=== PATIENT | male | born 1960 | race Caucasian/White ===

== ENCOUNTER 2020-08-01 06:00 | Outpatient (RCR) | payer MEDICARE, MEDICAID, SELFPAY | END 2020-08-29 23:59 | disposition home or self-care (01) | LOC: SOT 06:00 | PROVIDERS: PCP Internal Medicine; Visit Provider Internal Medicine | DX: G80.9 Cerebral palsy, unspecified (principal) | CPT/HCPCS: 97167; 97530 ==

== ENCOUNTER 2021-03-21 11:34 | Inpatient (IN) | payer MEDICARE, MEDICAID, SELFPAY ==
[2021-03-21] VITALS (12 sets, daily range): BP systolic 125–175; BP diastolic 77–93; PULSE 100–122; RESP 19–35; TEMP 37.7–38.3; O2SAT 89–95
--- NOTE | 2021-03-21 11:52 | XR_ITS ---
WS: [id number] Portable AP upright chest, 03/21/2021 Clinical Data: covid +, sob Comparison: Portable chest, 11/16/2018. Findings: No nodules, masses or effusions are seen. The heart is normal. The pulmonary vascularity is not increased. No pneumonia or pneumothorax is seen. The patient has a poor inspiratory effort. Dannielle tor leads are on the chest wall. XR/XR chest 1V portable [id number] Impression: Negative chest.
--- NOTE | 2021-03-21 11:57 | ED_ITS ---
HPI - COVID General: Chief Complaint: COVID symptoms Stated Complaint: covid positive Time Seen by Provider: 03/21/21 11:34 Source: patient, family, EMS and RN notes reviewed Mode of arrival: EMS Limitations: other (cerebral palsy) Triage information: Exposure to COVID + person last 14 days History of Present Illness: HPI Narrative: The patient is a 61-year-old male with cerebral palsy and his caregiver is his mother who usually takes care of him. Both the patient and the mother have tested positive for Covid and the patient is actually scheduled to receive monoclonal antibody in 2 days. I do not have his exact test states all days of symptom onset however since he is scheduled to receive the monoclonal antibody in 2 days I am guessing he is within about a week of symptom onset. Mother is unable to care for him any longer as she is very weak and he was sent to the emergency department to be evaluated on arrival he was hypoxic with oxygen saturation 88 to 89% on room air. He also appears to be slightly tachypneic. He is able to answer yes or no questions only. MD complaint: known COVID positive Prior covid testing: yes, results known COVID 19 common symptoms: positive fever(s) and dyspnea COVID 19 other sytmptoms: positive requiring oxygen Treatment prior to arrival: none COVID Results: No Data to Display Review of Systems General: Reports: ROS unobtainable due to mental status Const: Reports: fever(s) Resp: Reports: dyspnea Physical Exam Const: COMMON NORMALS: no acute distress, average body habitus, patient oriented x3, no limitations, healthy appearing, alert and well nourished HENMT: COMMON NORMALS: normocephalic, atraumatic and moist oral mucous membranes HEAD & SCALP: normocephalic and atraumatic Neck/C-Spine: COMMON NORMALS: no meningeal signs and no JVD Resp: COMMON NORMALS: normal respiratory effort, No retractions, No use of accessory muscles, clear to auscultation bilaterally and percussion normal EFFORT & INSPECTION: Yes tachypneic AUSCULTATION: clear to auscultation bilaterally PERCUSSION: percussion normal Cardio: COMMON NORMALS: no JVD, regular rate, regular rhythm, S1 normal heart sound present, S2 normal heart sound present, No gallops present (Cardio), No clicks present (Cardio), No murmurs present (Cardio), No rub (Cardio) and Peripheral pulses 2+ throughout RATE: regular rate RHYTHM: regular rhythm HEART SOUNDS: S1 normal heart sound present and S2 normal heart sound present PERIPHERAL PULSES: Peripheral pulses 2+ throughout GI: COMMON NORMALS: Normal to inspection, nondistended, normoactive bowel sounds present, Soft to palpation, non-tender, No hepatosplenomegaly present, no masses and no bruits PALPATION: Yes Soft to palpation and Yes No hepatosplenomegaly present Extremity: COMMON NORMALS: normal to inspection, full ROM, capillary refill normal, no calf tenderness and no pedal edema Neuro: COMMON NORMALS: patient oriented x3 SENSORIUM/ORIENTATION: Yes alert MENINGEAL SIGNS: Yes no meningeal signs Skin: COMMON NORMALS: no rashes or lesions noted, no wounds, turgor normal, no jaundice, no petechiae and no mottling GENERAL SKIN EXAM: no rashes or l esions noted and turgor normal Course Consultations: Consultation #1: Discussed the patient with Dr. Perdue, hospitalist and he kindly accepted the patient to his service. Time: 14:28 Vital Signs: Vital signs: Vital Signs Temperature 99.9 F H 03/21/21 11:45 Pulse Rate 100 03/21/21 20:00 Respiratory Rate 22 H 03/21/21 20:00 Blood Pressure 175/93 03/21/21 20:00 Pulse Oximetry 91 03/21/21 20:00 MDM - COVID MDM Narrative: Medical decision making narrative: This 61-year-old male with cerebral palsy presents to the emergency department for evaluation due to Covid 19. In the emergency department the patient was noted to be hypoxic with oxygen saturation between 88 and 89% on room air. He required oxygen supplementation at 2 L/min to maintain a saturation around 91 to 92%. Patient was also noted to be tachypneic. Evaluation in the emergency department showed significant rhabdomyolysis with CPK greater than 19,000. He is therefore being admitted to the hospital for further evaluation and management. Medical Records: Attestation: I reviewed the patient's medical records. Lab Data: Attestation: I reviewed the patient's lab results. Labs: Lab Results 03/21/21 03/21/21 03/21/21 Range/Units 13:00 13:00 13:00 WBC 4.7 (4.0-10.0) 10^3/ uL RBC 5.52 H (4.1-5.3) 10^6/u L Hgb 15.4 (11.7-16.6) g/dL Hct 46.3 (42.0-52.0) % MCV 83.9 (80-94) fL MCH 27.9 L (28.0-34.0) pg MCHC 33.3 (30.0-36.0) g/dL RDW 12.3 (12.1-15.1) % Plt Count 156 (130-400) 10^3/c mm MPV 10.9 H (7.4-10.4) fL Neut % (Auto) 77.6 % Lymph % (Auto) 9.4 % Norman % (Auto) 12.6 % Eos % (Auto) 0.0 % Baso % (Auto) 0.2 % Neut # (Auto) 3.62 (1.8-7.7) 10^3/u L Lymph # (Auto) 0.4 L (0.8-4.8) 10^3/u L Norman # (Auto) 0.6 (0.2-0.9) 10^3/u L Eos # (Auto) 0.0 (0.0-0.8) 10^3/u L Baso # (Auto) 0.0 (0.0-0.1) 10^3/u L Nucleated RBC % (a uto) 0 % Nucleated RBCs # 0.0 /100WBC Fibrinogen 376 (174-498) mg/dL D-Dimer 0.55 (0-0.59) ug/mIFE U Sodium 137 (136-145) mmol/L Potassium 4.3 (3.5-5.1) mmol/L Chloride 97 L (98-107) mmol/L Carbon Dioxide 19 L (22-29) mmol/L Anion Gap 25.3 H (5-19) BUN 27 H (8-23) mg/dL Creatinine 1.2 (0.7-1.2) mg/dL GFR Calculation 61.8 L (90-130) mL/min Glucose 94 (65-115) mg/dL Calculated Osmolal ity 289 (285-295) mOsm/k g Lactic Acid (0.5-2.2) mmol/L Calcium 8.8 (8.5-10.5) mg/dL Ferritin 941 H (30-400) ng/mL Total Bilirubin 0.5 (0.15-1.2) mg/dL AST 339 H (0-40) U/L ALT 94 H (0-41) U/L Alkaline Phosphata se 75 (40-130) IU/L Creatine Kinase 92269 H* (39-308) U/L C-Reactive Protein 18.9 H (0.0-4.9) mg/L Total Protein 7.1 (6.6-8.7) g/dL Albumin 4.3 (3.5-5.2) g/dL Globulin 2.8 (1.3-4.6) g/dL Lipase (13-60) U/L Procalcitonin 0.72 H (0-0.5) ng/mL 03/21/21 03/21/21 Range/Units 13:00 13:00 WBC (4.0-10.0) 10^3/ uL RBC (4.1-5.3) 10^6/u L Hgb (11.7-16.6) g/dL Hct (42.0-52.0) % MCV (80-94) fL MCH (28.0-34.0) pg MCHC (30.0-36.0) g/dL RDW (12.1-15.1) % Plt Count (130-400) 10^3/c mm MPV (7.4-10.4) fL Neut % (Auto) % Lymph % (Auto) % Norman % (Auto) % Eos % (Auto) % Baso % (Auto) % Neut # (Auto) (1.8-7.7) 10^3/u L Lymph # (Auto) (0.8-4.8) 10^3/u L Norman # (Auto) (0.2-0.9) 10^3/u L Eos # (Auto) (0.0-0.8) 10^3/u L Baso # (Auto) (0.0-0.1) 10^3/u L Nucleated RBC % (a uto) % Nucleated RBCs # /100WBC Fibrinogen (174-498) mg/dL D-Dimer (0-0.59) ug/mIFE U Sodium (136-145) mmol/L Potassium (3.5-5.1) mmol/L Chloride (98-107) mmol/L Carbon Dioxide (22-29) mmol/L Anion Gap (5-19) BUN (8-23) mg/dL Creatinine (0.7-1.2) mg/dL GFR Calculation (90-130) mL/min Glucose (65-115) mg/dL Calculated Osmolal ity (285-295) mOsm/k g Lactic Acid 1.5 (0.5-2.2) mmol/L Calcium (8.5-10.5) mg/dL Ferritin (30-400) ng/mL Total Bilirubin (0.15-1.2) mg/dL AST (0-40) U/L ALT (0-41) U/L Alkaline Phosphata se (40-130) IU/L Creatine Kinase (39-308) U/L C-Reactive Protein (0.0-4.9) mg/L Total Protein (6.6-8.7) g/dL Albumin (3.5-5.2) g/dL Globulin (1.3-4.6) g/dL Lipase 32 (13-60) U/L Procalcitonin (0-0.5) ng/mL Imaging Data: US: Attestation: I personally reviewed and interpreted this imaging study as follows: Radiologist's impression: [address] [id number] ReportSigned Patient: Guille Lucero #: [id number]: 1Acct#:[id number] e/Sex: 61 / MADM Date: 03/21/21Loc: ERRoom/Bed:Attending Dr: Ordering Provider/Ordering MD: Anastacia Wayne MD, [facility] [place] Date of Service: 03/21/21 Procedure(s): US gall bladder [id number] Accession Number(s): [id number] Report Number: [id number] WS: [id number] ULTRASOUND ABDOMEN LIMITED CLINICAL INFORMATION: fever, elevated liver enzymes COMPARISON: None. FINDINGS: Technically limited examination due to bowel gas. Liver Size: Normal. Craniocaudal length: 14.1 cm. Echogenicity: Coarse Surface nodularity: None. Mass (size and location): None. Bile ducts Intrahepatic ducts: Normal. Common bile duct diameter: 0.3 cm. Gallbladder Normal. Gallstones: None. Gallbladder sludge: None. Gallbladder wall thickening: None. Pericholecystic fluid: None. Sonographic Ko sign: Absent. Pancreas Normal as visualized. Right kidney: Normal. Hydronephrosis: None. Size: 10.8 cm x 6.7 cm x 6.5 cm. Abdominal aorta and IVC Visualized portions are normal. Ascites: None. US/ gall bladder [id number] IMPRESSION: 1. Diffuse fatty infiltration of the liver. 2. Normal gallbladder. Normal common bile duct. 3. No hydronephrosis in right kidney. Dictated By:Lamberto Quiroz MDSigned By:Lamberto Quiroz MDSigned Date/Time:03/21/21 1544DD/ 1543 CXR: Attestation: I personally reviewed and interpreted this imaging study as follows: Radiologist's impression: [address] [id number] ReportSigned Patient: Guille Lucero #: [id number]: cct#:[id number]/Sex: 61 / MADM Date: 03/21/21Loc: ERRoom/Bed:Attending Dr: Ordering Provider/Ordering MD: Anastacia Wayne MD, [facility] [place] Date of Service: 03/21/21 Procedure(s): XR chest 1V portable [id number] Accession Number(s): [id number] Report Number: [id number] WS: [id number] Portable AP upright chest, 03/21/2021 Clinical Data: covid +, sob Comparison: Portable chest, 11/16/2018. Findings: No nodules, masses or effusions are seen. The heart is normal. The pulmonary vascularity is not increased. No pneumonia or pneumothorax is seen. The patient has a poor inspiratory effort. Monitor leads are on the chest wall. XR/XR chest 1V portable [id number] Impression: Negative chest. Dictated By:Raiza Hooper MDSigned By:Raiza Hooper MDSigned Date/Time: 03/21/21 1226DD/ 1225 COVID Results: No Data to Display Discharge Plan Discharge Patient Disposition: Admitted As Inpatient Admit Provider: Brady Perdue Clinical Impression: Rhabdomyolysis due to COVID-19, Hypoxia, Transaminitis Condition: Stable Coding Level of Care Code ED Customer Counter Associate for Chg Fwd Exam Comprehensive
[2021-03-21 13:34] LABS: Basophils % 0.2 %; Hematocrit 46.3 % (42.0-52.0); Hemoglobin 15.4 g/dL (11.7-16.6); Lymphocytes # 0.4 10^3/uL (0.8-4.8); Lymphocytes % 9.4 %; Mean Corpuscular HGB Conc 33.3 g/dL (30.0-36.0); Mean Corpuscular Hemoglobin 27.9 pg (28.0-34.0); Mean Corpuscular Volume 83.9 fL (80-94); Mean Platelet Volume 10.9 fL (7.4-10.4); Monocytes # 0.6 10^3/uL (0.2-0.9); Monocytes % 12.6 %; Neutrophils # 3.62 10^3/uL (1.8-7.7); Neutrophils % 77.6 %; Nucleated Red Blood Cells % 0 %; Platelet Count 156 10^3/cmm (130-400); Red Blood Count 5.52 10^6/uL (4.1-5.3); Red Cell Distribution Width 12.3 % (12.1-15.1); White Blood Count 4.7 10^3/uL (4.0-10.0)
[2021-03-21 13:46] LABS: Lactic Sepsis W/Reflex 1.5 mmol/L (0.5-2.2)
[2021-03-21 13:48] LABS: Alanine Aminotransferase 94 U/L (0-41); Albumin Level 4.3 g/dL (3.5-5.2); Alkaline Phosphatase 75 IU/L (40-130); Anion Gap 25.3 (5-19); Aspartate Amino Transferase 339 U/L (0-40); Blood Urea Nitrogen 27 mg/dL (8-23); C Reactive Protein 18.9 mg/L (0.0-4.9); Calcium 8.8 mg/dL (8.5-10.5); Carbon Dioxide 19 mmol/L (22-29); Chloride 97 mmol/L (98-107); Globulin 2.8 g/dL (1.3-4.6); Glomerular Filtration Rate 61.8 mL/min (90-130); Glucose 94 mg/dL (65-115); Osmolality Calculated 289 mOsm/kg (285-295); Potassium 4.3 mmol/L (3.5-5.1); Sodium 137 mmol/L (136-145); Total Bilirubin 0.5 mg/dL (0.15-1.2); Total Protein 7.1 g/dL (6.6-8.7)
[2021-03-21 13:54] LABS: Procalcitonin 0.72 ng/mL (0-0.5)
[2021-03-21 14:01] LABS: Fibrinogen 376 mg/dL (174-498)
[2021-03-21 14:08] LABS: D Dimer 0.55 ug/mIFEU (0-0.59)
--- NOTE | 2021-03-21 14:19 | US_ITS ---
WS: [id number] ULTRASOUND ABDOMEN LIMITED CLINICAL INFORMATION: fever, elevated liver enzymes COMPARISON: None. FINDINGS: Technically limited examination due to bowel gas. Liver Size: Normal. Craniocaudal length: 14.1 cm. Echogenicity: Coarse Surface nodularity: None. Mass (size and location): None. Bile ducts Intrahepatic ducts: Normal. Common bile duct diameter: 0.3 cm. Gallbladder Normal. Gallstones: None. Gallbladder sludge: None. Gallbladder wall thickening: None. Pericholecystic fluid: None. Sonographic Ko sign: Absent. Pancreas Normal as visualized. Right kidney: Normal. Hydronephrosis: None. Size: 10.8 cm x 6.7 cm x 6.5 cm. Abdominal aorta and IVC Visualized portions are normal. Ascites: None. US/US gall bladder 22051 IMPRESSION: 1. Diffuse fatty infiltration of the liver. 2. Normal gallbladder. Normal common bile duct. 3. No hydronephrosis in right kidney.
[2021-03-21 14:22] LABS: Creatine Phosphokinase 19038 U/L (39-308)
[2021-03-21 14:55] LABS: Ferritin 941 ng/mL (30-400); Lipase 32 U/L (13-60)
[2021-03-21] MEDS: sodium chloride 0.9% 1,000 ML 999 ML IV (15:01)
--- NOTE | 2021-03-21 15:01 | P.HP_ITS ---
Providers/Chief Complaint Primary Care Provider: Neville Rodriguez DO Chief Complaint: covid positive History of Present Illness Guille Lucero is a 61 year old male past medical history started cerebral palsy, was brought in today by the EMS as his mother who is the caregiver was very weak as he has also been tested positive with Covid .and was no longer able to take care of him. Patient had also recently been diagnosed with Covid, he was scheduled to receive the monoclonal antibody in 2 days. Upon arrival in the ER patient was hypoxic he was satting 88% on room air and was requiring 2 L of oxygen. Pertinent imaging studies: X-ray chest: No infiltrates Pertinent labs: CBC: Normal, CPK: 68449 , AST:339, ALT:94, ALP:75, BUN: 27, serum creatinine:1.2 , lactic acid 1.5. D-dimer 0.55, serum fibrinogen 376, serum ferritin: 941 , CRP 18.9, procalcitonin 0.72 Patient was started on IV fluids in the ER. Review of Systems General: Reports: ROS unobtainable due to mental status Medications/Allergies Home Medications Medication Instructions Recorded Confirmed Last Taken Type cyclobenzaprine 10 mg PO BID 03/21/21 03/21/21 03/20/21 History lisinopril 20 mg PO DAILY 03/21/21 03/21/21 03/20/21 History omeprazole 20 mg PO BID 03/21/21 03/21/21 03/20/21 History Allergies Allergy/AdvReac Type Severity Reaction Status Date / Time No Known Allergies Allergy Unverified 03/21/21 14:55 Vitals/I&O/Wt Last Vital Signs Temp 99.9 F H 03/21/21 11:45 Pulse 110 H 03/21/21 13:05 Resp 19 H 03/21/21 13:05 BP 152/83 03/21/21 13:05 Pulse Ox 91 03/21/21 13:05 Physical Exam Narrative: EXAM NARRATIVE: Alert and awake HENMT: COMMON NORMALS: normocephalic and atraumatic HEAD & SCALP: normocephalic and atraumatic Resp: OTHER: Diminished air entry at bases ,other then that mostly clear. Cardio: COMMON NORMALS: regular rate, regular rhythm, S1 normal heart sound present, S2 normal heart sound present, No gallops present (Cardio), No murmurs present (Cardio), No rub (Cardio) and Peripheral pulses 2+ throughout RATE: regular rate RHYTHM: regular rhythm HEART SOUNDS: S1 normal heart sound present and S2 normal heart sound present PERIPHERAL PULSES: Peripheral pulses 2+ throughout GI: COMMON NORMALS: Normal to inspection, nondistended, normoactive bowel sounds present, Soft to palpation, non-tender, No hepatosplenomegaly present and no masses AUSCULTATION: Yes normoactive bowel sounds PALPATION: Yes Soft to palpation and Yes No hepatosplenomegaly present RECTAL EXAM: Yes deferred Extremity: COMMON NORMALS: no clubbing, cyanosis or edema and no pedal edema Data : 03/21/21 13:00 03/21/21 13:00 A&P Assessment and plan (1) Rhabdomyolysis: Rhabdomyolysis: Normal saline 150 cc an hour Monitor intake output Trend CPK Monitor BMP Monitor CMP Status: Acute (2) Transaminitis: Likely secondary to rhabdomyolysis: Gallbladder ultrasound: Status: Acute (3) COVID-19: Currently started on remdesivir and dexamethasone. Trend inflammatory markers (D-dimer ESR CRP ferritin fibrinogen) Monitor CMP for liver function test. Status: Acute (4) Hypoxia: Status: Acute (5) Severe dehydration: Status: Acute (6) Sinus tachycardia: Status: Acute Additional A&P Information CODE STATUS: Full code DVT prophylaxis: On Lovenox 40 subcu daily Attestations Medical Necessity Statement*: Patient needs to be in hospital for the management of Hypoxia,rhabdomyolysis,C0VID. Anticipated length of stay greater than 2 midnights Coding Level of Care Code Acute Packaging Technician for Chg Fwd Exam Expanded Problem Focused Diagnoses Rhabdomyolysis M62.82 Transaminitis R74.01 COVID-19 U07.1 Hypoxia R09.02 Severe dehydration E86.0 Sinus tachycardia R00.0
[2021-03-21] MEDS: remdesivir 200 MG in sodium chloride 0.9% (100 ml) 100 ML 100 MG IV (15:21)
--- NOTE | 2021-03-21 15:27 | ECG_ITS ---
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
--- NOTE | 2021-03-21 18:46 | PC.NURSE ---
Ate 1/2 turkry and cheese sandwich, one half jello and drank 240 of blaze.
--- NOTE | 2021-03-21 19:45 | PC.NURSE ---
transfer has been delayed once again because of a room change.
--- NOTE | 2021-03-21 21:00 | PC.NURSE ---
abbie care and linen change. ate another half of a jello
[2021-03-21] MEDS: albuterol 8 gm MDI 2 PUFF INHALATION (21:25)
[2021-03-21] MEDS: enoxaparin 40 mg/0.4 mL Syringe SUBCUT (22:37)
[2021-03-21] MEDS: sodium chloride 0.9% 1,000 ML 150 ML IV (22:37)
[2021-03-21] MEDS: acetaminophen 325 mg Tablet 650 MG PO (23:08)
[2021-03-22] VITALS (11 sets, daily range): BP systolic 116–168; BP diastolic 65–88; PULSE 101–130; RESP 20–32; TEMP 36.9–38.4; O2SAT 91–97
[2021-03-22] MEDS: dexamethasone 4 mg/mL INJ 6 MG IVP (01:09)
[2021-03-22] MEDS: ondansetron 2 mg/ML SDV 2 mL 4 MG IVP ×2 (02:31→15:53)
[2021-03-22] MEDS: sodium chloride 0.9% 1,000 ML 150 ML IV ×3 (05:19→23:43)
[2021-03-22 07:12] LABS: Hematocrit 45.5 % (42.0-52.0); Hemoglobin 14.9 g/dL (11.7-16.6); Lymphocytes # 0.5 10^3/uL (0.8-4.8); Lymphocytes % 9.8 %; Mean Corpuscular HGB Conc 32.7 g/dL (30.0-36.0); Mean Corpuscular Hemoglobin 28.3 pg (28.0-34.0); Mean Corpuscular Volume 86.3 fL (80-94); Mean Platelet Volume 10.3 fL (7.4-10.4); Monocytes # 0.5 10^3/uL (0.2-0.9); Monocytes % 10.8 %; Neutrophils # 3.64 10^3/uL (1.8-7.7); Nucleated Red Blood Cells % 0 %; Platelet Count 142 10^3/cmm (130-400); Red Blood Count 5.27 10^6/uL (4.1-5.3); Red Cell Distribution Width 12.7 % (12.1-15.1); White Blood Count 4.6 10^3/uL (4.0-10.0)
[2021-03-22 07:24] LABS: D Dimer 1.09 ug/mIFEU (0-0.59)
[2021-03-22 07:43] LABS: Alanine Aminotransferase 147 U/L (0-41); Albumin Level 3.9 g/dL (3.5-5.2); Alkaline Phosphatase 66 IU/L (40-130); Anion Gap 21.1 (5-19); Aspartate Amino Transferase 584 U/L (0-40); Blood Urea Nitrogen 25 mg/dL (8-23); C Reactive Protein 21.3 mg/L (0.0-4.9); Calcium 8.6 mg/dL (8.5-10.5); Carbon Dioxide 19 mmol/L (22-29); Chloride 106 mmol/L (98-107); Globulin 2.4 g/dL (1.3-4.6); Glomerular Filtration Rate 76.2 mL/min (90-130); Glucose 125 mg/dL (65-115); Magnesium 2.1 mg/dL (1.7-2.3); Osmolality Calculated 298 mOsm/kg (285-295); Potassium 5.1 mmol/L (3.5-5.1); Sodium 141 mmol/L (136-145); Total Bilirubin 0.3 mg/dL (0.15-1.2); Total Protein 6.3 g/dL (6.6-8.7)
[2021-03-22 08:50] LABS: Erythrocyte Sedimentation Rate 10 mm/hr (0-10)
[2021-03-22] MEDS: albuterol 8 gm MDI 2 PUFF INHALATION ×2 (09:32→21:34)
[2021-03-22] MEDS: cyclobenzaprine 10 mg Tablet PO ×2 (10:52→17:24)
[2021-03-22] MEDS: benzonatate 100 mg Capsule PO ×2 (11:01→21:31)
--- NOTE | 2021-03-22 14:39 | PM.PN ---
Subjective Subjective: Interval history: Patient was seen and examined this morning,currently he is saturating well on 2-3 lLs oxygen, CPK is trending down,it has been difficult for the patient to keep nasal canula . Medications: Reviewed: Yes Vitals/I&O/Wt Last Vital Signs Temp 98.5 F 03/22/21 12:00 Pulse 110 H 03/22/21 12:00 Resp 26 H 03/22/21 12:00 BP 143/79 03/22/21 12:00 Pulse Ox 96 03/22/21 12:00 03/21/21 03/22/21 03/22/21 22:59 06:59 14:59 Intake Total 1100 / 1100 1000 / 2100 1124.167 / 1124.167 Output Total 0 / 0 800 / 800 Balance 1100 / 1100 200 / 1300 1124.167 / 1124.167 Weight last 48 hrs Weight 74.843 kg Physical Exam Narrative: EXAM NARRATIVE: Alert and awake Const: COMMON NORMALS: patient oriented x3 HENMT: COMMON NORMALS: normocephalic and atraumatic HEAD & SCALP: normocephalic and atraumatic Resp: OTHER: Diminished air entry at bases ,other then that mostly clear. Cardio: COMMON NORMALS: regular rate, regular rhythm, S1 normal heart sound present, S2 normal heart sound present, No gallops present (Cardio), No murmurs present (Cardio), No rub (Cardio) and Peripheral pulses 2+ throughout RATE: regular rate RHYTHM: regular rhythm HEART SOUNDS: S1 normal heart sound present and S2 normal heart sound present PERIPHERAL PULSES: Peripheral pulses 2+ throughout GI: COMMON NORMALS: Normal to inspection, nondistended, normoactive bowel sounds present, Soft to palpation, non-tender, No hepatosplenomegaly present and no masses AUSCULTATION: Yes normoactive bowel sounds PALPATION: Yes Soft to palpation and Yes No hepatosplenomegaly present RECTAL EXAM: Yes deferred Extremity: COMMON NORMALS: no clubbing, cyanosis or edema and no pedal edema Neuro: COMMON NORMALS: patient oriented x3 Urinary Catheter Management^: Rose: Cath Placed During This Visit: yes Reason for Continuing Indwelling Catheter: Other Urinary Catheter Date of Insertion: 03/21/21 Urinary Catheter Time of Insertion: 23:10 Data : 03/23/21 05:32 03/23/21 05:32 A&P Assessment and plan (1) Rhabdomyolysis: Rhabdomyolysis: Normal saline 150 cc an hour with 1 amp of bicarbonate Monitor intake output Trend CPK Monitor BMP Monitor CMP Status: Acute (2) Transaminitis: Likely secondary to rhabdomyolysis: Gallbladder ultrasound: Diffuse fatty infiltration of the liver. Normal gallbladder. Normal common bile duct. Status: Acute (3) COVID-19: Currently started on remdesivir and dexamethasone. Trend inflammatory markers (D-dimer ESR CRP ferritin fibrinogen) Monitor CMP for liver function test. Status: Acute (4) Hypoxia: Status: Acute (5) Severe dehydration: On I.V Fluids Status: Acute (6) Sinus tachycardia: EKG :Sinus tachycardia Status: Acute Additional A&P Information CODE STATUS: Full code DVT prophylaxis: On Lovenox 40 subcu daily Attestations Medical Necessity Statement*: Patient needs to be in hospital for the management of severe rhabdomyolysis and COVID PNA. Coding Level of Care Code Acute Almond Sorter for [facility] Fwd Exam Detailed Diagnoses Rhabdomyolysis M62.82 Transaminitis R74.01 COVID-19 U07.1 Hypoxia R09.02 Severe dehydration E86.0 Sinus tachycardia R00.0
[2021-03-22] MEDS: FUROsemide 10 mg/mL SDV 2mL 20 MG IVP (15:32)
[2021-03-22] MEDS: sodium bicarbonate 8.4% 1 mEq/mL 50mL Syr 25 MEQ IVP (15:32)
[2021-03-22] MEDS: enoxaparin 40 mg/0.4 mL Syringe SUBCUT (15:33)
[2021-03-22] MEDS: remdesivir 100 MG in sodium chloride 0.9% (100 ml) 100 ML IV (17:24)
[2021-03-22] MEDS: diazePAM 2 mg Tablet PO (21:30)
[2021-03-22] MEDS: acetaminophen 325 mg Tablet 650 MG PO (21:31)
[2021-03-23] VITALS (11 sets, daily range): BP systolic 94–167; BP diastolic 63–85; PULSE 93–153; RESP 19–26; TEMP 37.1–37.6; O2SAT 87–94
[2021-03-23] MEDS: dexamethasone 4 mg/mL INJ 6 MG IVP (02:10)
[2021-03-23] MEDS: albuterol 8 gm MDI 2 PUFF INHALATION ×4 (04:16→20:02)
[2021-03-23] MEDS: sodium chloride 0.9% 1,000 ML 150 ML IV ×2 (05:18→12:46)
[2021-03-23 06:20] LABS: Basophils % 0.2 %; Hematocrit 42.7 % (42.0-52.0); Hemoglobin 14.3 g/dL (11.7-16.6); Lymphocytes # 0.5 10^3/uL (0.8-4.8); Lymphocytes % 8.5 %; Mean Corpuscular HGB Conc 33.5 g/dL (30.0-36.0); Mean Corpuscular Hemoglobin 28.1 pg (28.0-34.0); Mean Corpuscular Volume 83.9 fL (80-94); Mean Platelet Volume 10.6 fL (7.4-10.4); Monocytes # 0.5 10^3/uL (0.2-0.9); Monocytes % 8.4 %; Neutrophils # 5.21 10^3/uL (1.8-7.7); Neutrophils % 82.4 %; Nucleated Red Blood Cells % 0 %; Platelet Count 136 10^3/cmm (130-400); Red Blood Count 5.09 10^6/uL (4.1-5.3); Red Cell Distribution Width 12.5 % (12.1-15.1); White Blood Count 6.3 10^3/uL (4.0-10.0)
[2021-03-23 06:50] LABS: Alanine Aminotransferase 171 U/L (0-41); Alkaline Phosphatase 53 IU/L (40-130); Anion Gap 16.8 (5-19); Aspartate Amino Transferase 589 U/L (0-40); Blood Urea Nitrogen 22 mg/dL (8-23); C Reactive Protein 14.2 mg/L (0.0-4.9); Calcium 7.4 mg/dL (8.5-10.5); Carbon Dioxide 19 mmol/L (22-29); Chloride 110 mmol/L (98-107); D Dimer 0.65 ug/mIFEU (0-0.59); Globulin 2.3 g/dL (1.3-4.6); Glomerular Filtration Rate 137.4 mL/min (90-130); Glucose 140 mg/dL (65-115); Osmolality Calculated 300 mOsm/kg (285-295); Potassium 3.8 mmol/L (3.5-5.1); Sodium 142 mmol/L (136-145); Total Bilirubin 0.3 mg/dL (0.15-1.2); Total Protein 5.3 g/dL (6.6-8.7)
[2021-03-23 07:31] LABS: Erythrocyte Sedimentation Rate 9 mm/hr (0-10)
[2021-03-23] MEDS: cyclobenzaprine 10 mg Tablet PO ×2 (09:15→18:02)
[2021-03-23 10:50] LABS: Creatine Phosphokinase 21445 U/L (39-308)
[2021-03-23] MEDS: sodium bicarbonate 8.4% 1 mEq/mL 50mL Syr 25 MEQ IVP (11:51)
--- NOTE | 2021-03-23 11:52 | PC.NURSE ---
Per pharmacy add sodium bicarb to NS. song writer added sodium bicarb to 1000ml of NS.
[2021-03-23] MEDS: benzonatate 100 mg Capsule PO ×2 (12:46→22:08)
--- NOTE | 2021-03-23 14:53 | ECG_ITS ---
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 Measurements Intervals [place] Rate: 110 P: 58 MA: 161 QRS: 79 QRSD: 74 T: 44 QT: 292 QTc: 396 Interpretive Statements SINUS TACHYCARDIA NONSPECIFIC ST & T-WAVE ABNORMALITY Compared to ECG 11/16/2018 08:10:25 No significant changes Electronically Signed On 03-23-2021 18:04:25 CDT by Sofiya Jimenez M.D. [id number]
--- NOTE | 2021-03-23 14:57 | XRR_ITS ---
PROCEDURE INFORMATION: Exam: XR Chest Exam date and time: 03/23/2021 2:57 PM Age: 61 years old Clinical indication: Shortness of breath; Additional info: Pna TECHNIQUE: Imaging protocol: XR of the chest. Views: 1 view. COMPARISON: CR XR chest 1V portable [id number] 03/21/2021 11:54 AM FINDINGS: Lungs: Appearance of some peripheral opacities in the right mid and lower lung. Pleural spaces: Unremarkable. No pleural effusion. No pneumothorax. Heart/Mediastinum: Unremarkable. No cardiomegaly. Bones/joints: Unremarkable. XR/XR chest 1V portable [id number] IMPRESSION: Appearance of some peripheral opacities in the right lung which may suggest pneumonia.
[2021-03-23] MEDS: diphenhydrAMINE 50 mg/mL SDV 1mL 12.5 MG IVP (15:19)
[2021-03-23] MEDS: enoxaparin 40 mg/0.4 mL Syringe SUBCUT (15:42)
[2021-03-23] MEDS: guaiFENesin 100 mg/5 mL UDC 10 mL 200 MG PO ×2 (18:02→22:08)
[2021-03-23 19:58] LABS: Creatine Phosphokinase 10077 U/L (39-308)
[2021-03-23] MEDS: sodium chloride 0.9% 1,000 ML 100 ML IV (22:07)
[2021-03-24] VITALS (9 sets, daily range): BP systolic 141–163; BP diastolic 65–85; PULSE 98–123; RESP 20–29; TEMP 36.8–38.7; O2SAT 90–96
[2021-03-24] MEDS: dexamethasone 4 mg/mL INJ 6 MG IVP (01:25)
--- NOTE | 2021-03-24 03:05 | P.PN_ITS ---
Subjective Subjective: Interval history: Patient was seen and examined this morning, CPK is trending down,supplemental oxygen requirement has gone up slightly. patient has also been constantly itching. Medications: Reviewed: Yes Vitals/I&O/Wt Last Vital Signs Temp 100.3 F H 03/24/21 00:00 Pulse 107 H 03/24/21 00:00 Resp 27 H 03/24/21 00:00 BP 152/65 03/24/21 00:00 Pulse Ox 90 03/24/21 00:00 03/23/21 03/23/21 03/24/21 14:59 22:59 06:59 Intake Total 1580 / 1580 1240 / 2820 Output Total 800 / 800 350 / 1150 350 / 1500 Balance 780 / 780 890 / 1670 -350 / 1320 Weight last 48 hrs Weight 74.843 kg Physical Exam Narrative: EXAM NARRATIVE: Alert and awake Const: COMMON NORMALS: patient oriented x3 HENMT: COMMON NORMALS: normocephalic and atraumatic HEAD & SCALP: normocephalic and atraumatic Resp: OTHER: Diminished air entry at bases ,other then that mostly clear. Cardio: COMMON NORMALS: regular rate, regular rhythm, S1 normal heart sound present, S2 normal heart sound present, No gallops present (Cardio), No murmurs present (Cardio), No rub (Cardio) and Peripheral pulses 2+ throughout RATE: regular rate RHYTHM: regular rhythm HEART SOUNDS: S1 normal heart sound present and S2 normal heart sound present PERIPHERAL PULSES: Peripheral pulses 2+ throughout GI: COMMON NORMALS: Normal to inspection, nondistended, normoactive bowel sounds present, Soft to palpation, non-tender, No hepatosplenomegaly present and no masses AUSCULTATION: Yes normoactive bowel sounds PALPATION: Yes Soft to palpation and Yes No hepatosplenomegaly present RECTAL EXAM: Yes deferred Extremity: COMMON NORMALS: no clubbing, cyanosis or edema and no pedal edema Neuro: COMMON NORMALS: patient oriented x3 Urinary Catheter Management^: Rose: Cath Placed During This Visit: yes Reason for Continuing Indwelling Catheter: Other Urinary Catheter Date of Insertion: 03/21/21 Urinary Catheter Time of Insertion: 23:10 Data : 03/23/21 05:32 03/23/21 05:32 A&P Assessment and plan (1) Rhabdomyolysis: Rhabdomyolysis: Normal saline 150 cc an hour with 1 amp of bicarbonate Monitor intake output Trend CPK Monitor BMP Monitor CMP Status: Acute (2) Transaminitis: Likely secondary to rhabdomyolysis: Gallbladder ultrasound: Diffuse fatty infiltration of the liver. Normal gallbladder. Normal common bile duct. Status: Acute (3) COVID-19: initially started on remdesivir and dexamethasone. Mother do not want Reddesevir Trend inflammatory markers (D-dimer ESR CRP ferritin fibrinogen) Monitor CMP for liver function test. Status: Acute (4) Hypoxia: Status: Acute (5) Severe dehydration: On I.V Fluids Status: Acute (6) Sinus tachycardia: EKG :Sinus tachycardia Status: Acute Additional A&P Information CODE STATUS: Full code DVT prophylaxis: On Lovenox 40 subcu daily Attestations Medical Necessity Statement*: Patient needs to be in hospital for the management of severe severe rhabdomyolysis and COVID Coding Level of Care Code Acute Bank Vault Attendant for [facility] Fwd Diagnoses Rhabdomyolysis M62.82 Transaminitis R74.01 COVID-19 U07.1 Hypoxia R09.02 Severe dehydration E86.0 Sinus tachycardia R00.0
[2021-03-24 06:12] LABS: Hematocrit 40.2 % (42.0-52.0); Hemoglobin 13.6 g/dL (11.7-16.6); Lymphocytes # 0.4 10^3/uL (0.8-4.8); Lymphocytes % 6.4 %; Mean Corpuscular HGB Conc 33.8 g/dL (30.0-36.0); Mean Corpuscular Hemoglobin 28.7 pg (28.0-34.0); Mean Corpuscular Volume 84.8 fL (80-94); Mean Platelet Volume 10.2 fL (7.4-10.4); Monocytes # 0.5 10^3/uL (0.2-0.9); Monocytes % 8.7 %; Neutrophils # 5.13 10^3/uL (1.8-7.7); Neutrophils % 84.2 %; Nucleated Red Blood Cells % 0 %; Platelet Count 140 10^3/cmm (130-400); Red Blood Count 4.74 10^6/uL (4.1-5.3); Red Cell Distribution Width 12.8 % (12.1-15.1); White Blood Count 6.1 10^3/uL (4.0-10.0)
[2021-03-24 06:27] LABS: D Dimer 0.43 ug/mIFEU (0-0.59)
[2021-03-24 06:44] LABS: Alanine Aminotransferase 150 U/L (0-41); Albumin Level 2.8 g/dL (3.5-5.2); Alkaline Phosphatase 44 IU/L (40-130); Anion Gap 12.8 (5-19); Aspartate Amino Transferase 294 U/L (0-40); Blood Urea Nitrogen 19 mg/dL (8-23); C Reactive Protein 7.8 mg/L (0.0-4.9); Calcium 7.2 mg/dL (8.5-10.5); Carbon Dioxide 22 mmol/L (22-29); Chloride 111 mmol/L (98-107); Globulin 1.9 g/dL (1.3-4.6); Glomerular Filtration Rate 169.6 mL/min (90-130); Glucose 142 mg/dL (65-115); Osmolality Calculated 299 mOsm/kg (285-295); Potassium 3.8 mmol/L (3.5-5.1); Sodium 142 mmol/L (136-145); Total Bilirubin 0.3 mg/dL (0.15-1.2); Total Protein 4.7 g/dL (6.6-8.7)
[2021-03-24 07:06] LABS: Creatinine Clr Calc Pharmacy 151.5938
[2021-03-24 07:33] LABS: Creatine Phosphokinase 4984 U/L (39-308)
[2021-03-24 08:10] LABS: Erythrocyte Sedimentation Rate 9 mm/hr (0-10)
[2021-03-24] MEDS: cyclobenzaprine 10 mg Tablet PO ×2 (09:26→17:07)
[2021-03-24] MEDS: sodium chloride 0.9% 1,000 ML 100 ML IV ×2 (09:26→20:20)
--- NOTE | 2021-03-24 10:37 | PC.SOCIAL ---
Pg 2 IMM Explained to pt's mom via phone, on Pg 2 IMM. No questions voiced. Provided pt/mother a copy. Initialed, dated, & timed a copy & placed in chart.
[2021-03-24] MEDS: guaiFENesin 100 mg/5 mL UDC 10 mL 200 MG PO ×2 (11:56→18:01)
[2021-03-24] MEDS: benzonatate 100 mg Capsule PO (11:56)
[2021-03-24 14:33] LABS: Thyroid Stimulating Hormone 0.07 uIU/mL (0.27-4.20)
[2021-03-24 14:43] LABS: Iron 66 ug/dL (59-158); Percent Saturation 49.6 % (20-50); Total Iron Binding Capacity 133 mcg/dl; Unsaturated Iron Binding 67 ug/dL (112-347)
[2021-03-24] MEDS: enoxaparin 40 mg/0.4 mL Syringe SUBCUT (15:31)
--- NOTE | 2021-03-24 15:37 | P.PN_ITS ---
Subjective Subjective: Interval history: Hospital course, labs appreciated. Examination patient is lying in bed with his mother in the same room admitted for COVID-19 pneumonia at bedside with him. Patient is awake, alert to self which is his baseline. He is on 4 L oxygen supplementation saturating 91%. Patient is able to communicate with me by saying yes. As per his mother this is his baseline. We discussed in detail with the mother the treatment options going forward and need for him to be on remdesivir as patient is requiring oxygen supplementation. Mother for now is agreeable to the same. Medications: Reviewed: Yes Vitals/I&O/Wt Last Vital Signs Temp 99.2 F 03/24/21 12:00 Pulse 98 03/24/21 12:00 Resp 20 H 03/24/21 12:00 BP 160/85 03/24/21 12:00 Pulse Ox 91 03/24/21 12:00 03/24/21 03/24/21 03/24/21 06:59 14:59 22:59 Intake Total 1480 / 1480 Output Total 675 / 1825 Balance -675 / 995 1480 / 1480 Physical Exam Narrative: EXAM NARRATIVE: General: No acute distress, AO x 1, following simple commands HEENT:, PERRLA, pupils bilaterally equal and reactive Chest: Normal vesicular breath sounds, bilateral rhonchi present all over the lung amaya, equal good air entry bilaterally CVS: S1-S2 regular, no murmurs, no tachycardia, no gallops, no rubs Abdomen: Soft, nontender, no organomegaly, bowel sounds present Neuro: No focal deficits, no facial deformity, AO x3, power 5/5 in all limbs Urinary Catheter Management^: Rose: Cath Placed During This Visit: yes Reason for Continuing Indwelling Catheter: Other Urinary Catheter Date of Insertion: 03/21/21 Urinary Catheter Time of Insertion: 23:10 Data : 03/24/21 05:53 03/24/21 05:53 A&P Assessment and plan (1) Hypoxia: Status: Acute (2) COVID-19: Status: Acute (3) Rhabdomyolysis: Status: Acute (4) Transaminitis: Likely secondary to rhabdomyolysis: Gallbladder ultrasound: Diffuse fatty infiltration of the liver. Normal gallbladder. Normal common bile duct. Status: Acute (5) Severe dehydration: Status: Acute (6) Sinus tachycardia: EKG :Sinus tachycardia Status: Acute (7) Benign essential hypertension with target blood pressure below 140/90: Status: Acute Additional A&P Information Hypoxia secondary to COVID-19: Mild disease. Oxygen supplementation keeping saturation over 90%. Discussed with mother and she is agreeable to remdesivir now.Finished a 5-day course. Dexamethasone 6 mg IV daily. Vitamin C, zinc. Tessalon Perles, Robitussin as needed. Continue patient with Advair. Add Spiriva. Pulmonary toilet with incentive spirometry and flutter valve as possible and to tolerated. Continue to monitor inflammatory markers including ESR, CRP, ferritin. Check procalcitonin, MRSA swab, sputum culture. Check urine Legionella, bacterial antigen. Low suspicion of bacterial superimposed infection. For now continue to hold off on antibiotics. D-dimer negative. Continue Lovenox at prophylactic dose. If requiring more oxygen can transition over to anticoagulation dose. Rhabdomyolysis: Most likely secondary to dehydration and hypoxia on admission. Resolving. Continue to check CPK daily. Continue with IV hydration with normal saline 100 cc/h. High blood pressure: No history of hypertension. Goal blood pressure less than 140/90 mmHg. Start patient on amlodipine 5 mg daily. CODE STATUS: Full code DVT prophylaxis: On Lovenox 40 subcu daily Regular diet. Check iron panel, TSH, ferritin. Discharge planning: Home with home health. Patient would need home O2 evaluation prior to discharge. Most likely will require oxygen on discharge. Attestations Medical Necessity Statement*: Patient requires further hospitalization for management of hypoxia secondary to COVID-19 pneumonia, moderate rhabdomyolysis Time Spent in Patient Care: Greater than 35 minutes (>than 50% of time spent in counselling and/or direct pt care on unit) . Coding Level of Care Code Acute Refinish Technician for [facility] Fwd Diagnoses Hypoxia R09.02 COVID-19 U07.1 Rhabdomyolysis M62.82 Transaminitis R74.01 Severe dehydration E86.0 Sinus tachycardia R00.0 Benign essential hypertension with target blood pressure below 140/90 I10
[2021-03-24] MEDS: ferrous gluconate 324 mg Tablet PO (17:07)
[2021-03-24] MEDS: amlodipine 5 mg Tablet PO (17:07)
[2021-03-24] MEDS: ascorbic acid 500 mg Tablet 1000 MG PO (17:07)
[2021-03-24 19:58] LABS: Free T4 Free Thyroxine 1.47 ng/dL (0.82-1.77); T3 Free 2.9 PG/ML (2.0-4.4)
[2021-03-24] MEDS: acetaminophen 325 mg Tablet 650 MG PO (20:41)
[2021-03-24] MEDS: albuterol 8 gm MDI 2 PUFF INHALATION (21:50)
[2021-03-25] VITALS (9 sets, daily range): BP systolic 136–151; BP diastolic 75–86; PULSE 86–139; RESP 20–24; TEMP 37.1–39.4; O2SAT 90–991
[2021-03-25] MEDS: dexamethasone 4 mg/mL INJ 6 MG IVP (01:17)
--- NOTE | 2021-03-25 04:01 | XR_ITS ---
WS: [id number] XR abdomen 1V* [id number] REASON FOR EXAM: evaluate SBO FINDINGS: No free air or retroperitoneal air. The bowel gas pattern is unremarkable with no definite findings of small bowel obstruction. Gas is se en throughout the colon which is mildly distended. No urinary tract calculi identified. No mass is noted. XR/XR abdomen 1V* [id number] IMPRESSION: No acute abdominal abdomen abnormality.
[2021-03-25] MEDS: ondansetron 2 mg/ML SDV 2 mL 4 MG IVP ×3 (04:06→21:30)
--- NOTE | 2021-03-25 04:10 | PC.NURSE ---
@0350 patient had coffee ground emisis, breath has odor of BM, temp 102.9, bp 148/80, pulse ranging between 138-148, 02 sat ranging from 88-91, 02 increased to 6l at this time, call placed to hospitalist Dr. Luqeu, new orders recieved
[2021-03-25] MEDS: acetaminophen 1,000 MG/100 ML PIGGYBACK 400 MG IV (04:17)
[2021-03-25] MEDS: pantoprazole 40 mg SDV IVP ×2 (04:25→18:05)
--- NOTE | 2021-03-25 06:00 | XR_ITS ---
WS: [id number] XR chest 1V portable [id number] REASON FOR EXAM: covid FINDINGS: Peripheral subpleural reticular nodular and groundglass densities in the right lung with more focal c onsolidation in the left lower lung. There is a more central area of infiltrate in the right upper lung field as well. These abnormalities are unchanged compared to 03/23/2021. No new chest findings. XR/XR chest 1V portable [id number] IMPRESSION: Stable abnormal chest as above.
[2021-03-25 06:11] LABS: Basophils % 0.2 %; Hematocrit 42.2 % (42.0-52.0); Lymphocytes # 0.3 10^3/uL (0.8-4.8); Lymphocytes % 2.8 %; Mean Corpuscular HGB Conc 33.2 g/dL (30.0-36.0); Mean Corpuscular Hemoglobin 28.1 pg (28.0-34.0); Mean Corpuscular Volume 84.6 fL (80-94); Mean Platelet Volume 10.5 fL (7.4-10.4); Monocytes # 0.5 10^3/uL (0.2-0.9); Monocytes % 4.7 %; Neutrophils # 10.61 10^3/uL (1.8-7.7); Neutrophils % 91.4 %; Nucleated Red Blood Cells % 0 %; Platelet Count 141 10^3/cmm (130-400); Red Blood Count 4.99 10^6/uL (4.1-5.3); Red Cell Distribution Width 12.9 % (12.1-15.1); White Blood Count 11.6 10^3/uL (4.0-10.0)
[2021-03-25] MEDS: sodium chloride 0.9% 1,000 ML 100 ML IV ×2 (06:18→18:08)
[2021-03-25 06:28] LABS: Alanine Aminotransferase 150 U/L (0-41); Albumin Level 3.1 g/dL (3.5-5.2); Alkaline Phosphatase 57 IU/L (40-130); Anion Gap 13.4 (5-19); Aspartate Amino Transferase 180 U/L (0-40); Blood Urea Nitrogen 25 mg/dL (8-23); Calcium 8.6 mg/dL (8.5-10.5); Carbon Dioxide 25 mmol/L (22-29); Chloride 106 mmol/L (98-107); Globulin 2.3 g/dL (1.3-4.6); Glucose 185 mg/dL (65-115); Osmolality Calculated 299 mOsm/kg (285-295); Potassium 4.4 mmol/L (3.5-5.1); Sodium 140 mmol/L (136-145); Total Bilirubin 0.6 mg/dL (0.15-1.2); Total Protein 5.4 g/dL (6.6-8.7)
[2021-03-25 06:32] LABS: Estmated Average Glucose 126
--- NOTE | 2021-03-25 06:40 | PC.NURSE ---
@0450 temp 98.8 oral, pulse 125, o2 at 91% with 02 up 6L
--- NOTE | 2021-03-25 06:41 | PC.NURSE ---
patient resting quietly at this time, resp even and unlabored, remained on right side, no more episode of emisis
[2021-03-25 07:02] LABS: D Dimer 1.06 ug/mIFEU (0-0.59)
[2021-03-25 07:09] LABS: Erythrocyte Sedimentation Rate 14 mm/hr (0-10)
[2021-03-25 07:11] LABS: Ferritin 1390 ng/mL (30-400)
[2021-03-25 07:14] LABS: Creatine Phosphokinase 1533 U/L (39-308)
[2021-03-25] MEDS: guaiFENesin 100 mg/5 mL UDC 10 mL 200 MG PO (08:54)
[2021-03-25] MEDS: cyclobenzaprine 10 mg Tablet PO ×2 (08:54→18:08)
[2021-03-25] MEDS: zinc gluconate 50 mg Tablet PO (08:54)
[2021-03-25] MEDS: benzonatate 100 mg Capsule PO ×2 (08:54→20:35)
[2021-03-25] MEDS: amlodipine 5 mg Tablet PO (08:54)
[2021-03-25] MEDS: ascorbic acid 500 mg Tablet 1000 MG PO ×2 (08:54→18:08)
[2021-03-25] MEDS: ferrous gluconate 324 mg Tablet PO ×2 (08:54→18:05)
[2021-03-25 11:56] LABS: Procalcitonin 1.45 ng/mL (0-0.5)
[2021-03-25] MEDS: azithromycin 250 mg Tablet 500 MG PO (12:15)
[2021-03-25] MEDS: enoxaparin 40 mg/0.4 mL Syringe SUBCUT (14:13)
[2021-03-25] MEDS: albuterol 8 gm MDI 2 PUFF INHALATION (16:28)
--- NOTE | 2021-03-25 16:32 | PM.PN ---
Subjective Subjective: Interval history: Overnight patient had an event of coughing bout followed by respiratory distress and vomiting. As per the nurse it was coffee-ground. Patient's hemoglobin is stable. Has remained hemodynamically stable. T-max in last 24-hour 101.5 Fahrenheit. Patient's mother continues to refuse remdesivir even though has been counseled multiple times the importance of the medication to reduce the viral load, and inactivate the virus. Discussed his care in detail with patient's brother who states he will discuss with patient's sister and then will try to convince mother regarding remdesivir. Medications: Reviewed: Yes Vitals/I&O/Wt Last Vital Signs Temp 99.8 F H 03/25/21 15:23 Pulse 86 03/25/21 16:28 Resp 24 H 03/25/21 16:28 BP 137/76 03/25/21 15:23 Pulse Ox 90 03/25/21 16:28 03/25/21 03/25/21 03/25/21 06:59 14:59 22:59 Intake Total 1096.667 / 4116.667 360 / 360 Output Total 575 / 1925 Balance 521.667 / 2191.667 360 / 360 Physical Exam Narrative: EXAM NARRATIVE: General: No acute distress, AO x 1-2, following simple commands HEENT:, PERRLA, pupils bilaterally equal and reactive Chest: Normal vesicular breath sounds, bilateral rhonchi present all over the lung amaya, equal good air entry bilaterally CVS: S1-S2 regular, no murmurs, no tachycardia, no gallops, no rubs Abdomen: Soft, nontender, no organomegaly, bowel sounds present Neuro: No focal deficits, no facial deformity, AO x3, power 5/5 in all limbs Urinary Catheter Management^: Rose: Cath Placed During This Visit: yes Reason for Continuing Indwelling Catheter: Acute Urinary Retention or Obstruction Urinary Catheter Date of Insertion: 03/21/21 Urinary Catheter Time of Insertion: 23:10 Data : 03/25/21 05:57 03/25/21 05:57 Micro: Microbiology 03/25/21 14:07 Blood Culture - Preliminary Blood SPECIMEN COLLECTED 03/25/21 14:07 Blood Culture - Preliminary Blood SPECIMEN COLLECTED 03/24/21 15:30 MRSA Culture - Final Nose A&P Assessment and plan (1) Hypoxia: Status: Acute (2) COVID-19: Status: Acute (3) Rhabdomyolysis: Status: Acute (4) Transaminitis: Likely secondary to rhabdomyolysis: Gallbladder ultrasound: Diffuse fatty infiltration of the liver. Normal gallbladder. Normal common bile duct. Status: Acute (5) Severe dehydration: Status: Acute (6) Sinus tachycardia: EKG :Sinus tachycardia Status: Acute (7) Benign essential hypertension with target blood pressure below 140/90: Status: Acute Additional A&P Information Hypoxia secondary to COVID-19: Mild disease. Oxygen supplementation keeping saturation over 90%. Patient continues to spike fever. Inflammatory markers including ESR, CRP, ferritin worsening. Discussed with mother. She continues to refuse treatment with remdesivir. Discussed patient's care in detail with patient's brother. He will try to reach out to mother regarding the same to convince her. Dexamethasone 6 mg IV daily. Vitamin C, zinc. Tessalon Perles, Robitussin as needed. Continue patient with Advair. Add Spiriva. Pulmonary toilet with incentive spirometry and flutter valve as possible and to tolerated. Procalcitonin elevated today. MRSA swab negative. Check sputum culture. Start patient on Zosyn. If patient continues to worsen will get CTA for better visualization of pneumonia and to rule out PE. D-dimer elevated today. As patient possibly had coffee-ground emesis last night even though hemoglobin is stable for now continue Lovenox at prophylactic dose. If requiring more oxygen can transition over to anticoagulation dose. Rhabdomyolysis: Most likely secondary to dehydration and hypoxia on admission. Resolving. Continue to check CPK daily. Continue with IV hydration with normal saline 100 cc/h. Hypertension: No history of hypertension. Goal blood pressure less than 140/90 mmHg. Amlodipine 5 mg daily. Will uptitrate as possible. Coffee-ground emesis: Hemoglobin stable. Protonix 40 mg twice daily. Continue to monitor hemoglobin. Oral iron supplementation. CODE STATUS: Full code DVT prophylaxis: On Lovenox 40 subcu daily Regular diet. Discharge planning: Patient's caregiver who is the mother is also suffering from Covid. She is requesting patient to be placed at SNF for short-term while she recovers. Case management has been alerted. Attestations Medical Necessity Statement*: Requires further hospitalization for management of hypoxia secondary to COVID-19 pneumonia, rhabdomyolysis Time Spent in Patient Care: Greater than 35 minutes (>than 50% of time spent in counselling and/or direct pt care on unit). Coding Level of Care Code Acute Transcription Specialist for [facility] Fwd Diagnoses Hypoxia R09.02 COVID-19 U07.1 Rhabdomyolysis M62.82 Transaminitis R74.01 Severe dehydration E86.0 Sinus tachycardia R00.0 Benign essential hypertension with target blood pressure below 140/90 I10
[2021-03-25] MEDS: piperacillin-tazobactam 3.375 GM in sodium chloride 0.9% (plus) 50 ML IV ×2 (18:05→22:36)
[2021-03-25] MEDS: remdesivir 200 MG in sodium chloride 0.9% (100 ml) 100 ML 100 MG IV (18:27)
[2021-03-25] MEDS: acetaminophen 325 mg Tablet 650 MG PO (21:58)
[2021-03-26] VITALS (9 sets, daily range): BP systolic 125–178; BP diastolic 74–99; PULSE 60–123; RESP 16–27; TEMP 36.8–38.3; O2SAT 86–91
[2021-03-26] MEDS: metoclopramide 5 mg/mL SDV 2 mL IVP (00:18)
--- NOTE | 2021-03-26 00:54 | PC.NURSE ---
@2200 patient temp 101.9, tylenol given as ordered, oral, patient washed down, @2300 patient had emesis, small food particles and brown liquid emesis with odor of stool, temp 100.9, bp 122/70, pulse 116, 02 sat currently 90 with 02 set at 6lpm, reglan administered
[2021-03-26] MEDS: dexamethasone 4 mg/mL INJ 6 MG IVP (01:42)
[2021-03-26] MEDS: sodium chloride 0.9% 1,000 ML 100 ML IV (02:46)
[2021-03-26] MEDS: pantoprazole 40 mg SDV IVP ×2 (03:54→17:11)
[2021-03-26] MEDS: vancomycin 1,000 MG in sodium chloride 0.9% 250 ML 250 MG IV (06:30)
[2021-03-26] MEDS: piperacillin-tazobactam 3.375 GM in sodium chloride 0.9% (plus) 50 ML IV ×2 (06:35→17:12)
[2021-03-26 07:15] LABS: Hematocrit 39.2 % (42.0-52.0); Hemoglobin 12.9 g/dL (11.7-16.6); Mean Corpuscular HGB Conc 32.9 g/dL (30.0-36.0); Mean Corpuscular Volume 85.2 fL (80-94); Mean Platelet Volume 11.5 fL (7.4-10.4); Platelet Count 122 10^3/cmm (130-400); Red Cell Distribution Width 13.4 % (12.1-15.1); White Blood Count 11.4 10^3/uL (4.0-10.0)
[2021-03-26 07:26] LABS: D Dimer 2.14 ug/mIFEU (0-0.59)
[2021-03-26 07:38] LABS: Alanine Aminotransferase 93 U/L (0-41); Albumin Level 2.4 g/dL (3.5-5.2); Alkaline Phosphatase 52 IU/L (40-130); Anion Gap 12.4 (5-19); Aspartate Amino Transferase 77 U/L (0-40); Blood Urea Nitrogen 27 mg/dL (8-23); C Reactive Protein 93.4 mg/L (0.0-4.9); Calcium 8.8 mg/dL (8.5-10.5); Carbon Dioxide 24 mmol/L (22-29); Chloride 107 mmol/L (98-107); Globulin 2.8 g/dL (1.3-4.6); Glomerular Filtration Rate 98.6 mL/min (90-130); Glucose 209 mg/dL (65-115); Osmolality Calculated 299 mOsm/kg (285-295); Potassium 4.4 mmol/L (3.5-5.1); Sodium 139 mmol/L (136-145); Total Bilirubin 0.5 mg/dL (0.15-1.2); Total Protein 5.2 g/dL (6.6-8.7)
[2021-03-26 08:07] LABS: Creatine Phosphokinase 387 U/L (39-308); Ferritin 1501 ng/mL (30-400)
[2021-03-26 08:24] LABS: Slide Review Slide Review Perform
[2021-03-26 08:26] LABS: Absolute Neutrophil 10.7 10^3/cmm (1.4-6.5); Absolute Segmented Neutrophil 7.9 10/cmm (1.6-7.1); Band Neutrophils Absolute 2.9 10^3/cmm (0.0-1.2); Eosinophils 0 %; Lymphocytes 3 %; Monocytes Absolute 0.2 10^3/cmm (0.1-0.6); Platelet Estimate Decreased (Normal); Segmented Neutrophils 69 %; Total Cells Counted 100 (0-100)
[2021-03-26 08:27] LABS: Lymphocytes Absolute 0.3 10^3/cmm (1.2-3.4)
[2021-03-26 09:20] LABS: Erythrocyte Sedimentation Rate 30 mm/hr (0-10)
[2021-03-26] MEDS: cyclobenzaprine 10 mg Tablet PO (09:24)
[2021-03-26] MEDS: amlodipine 5 mg Tablet PO (09:24)
[2021-03-26] MEDS: zinc gluconate 50 mg Tablet PO (09:24)
[2021-03-26] MEDS: azithromycin 250 mg Tablet 500 MG PO (09:24)
[2021-03-26] MEDS: ascorbic acid 500 mg Tablet 1000 MG PO (09:24)
[2021-03-26] MEDS: ferrous gluconate 324 mg Tablet PO (09:24)
[2021-03-26] MEDS: albuterol 8 gm MDI 2 PUFF INHALATION ×2 (10:59→17:30)
[2021-03-26] MEDS: ondansetron 2 mg/ML SDV 2 mL 4 MG IVP (11:28)
--- NOTE | 2021-03-26 12:31 | PC.NUTR ---
Addendum entered by Devora Escamilla 03/26/21 12:32: See full RD assessment for further details. Original Note: Nutrition assessment completed for LOS. Noted plan for LINE TECHNICIAN eval per rounds this AM, and current NPO status. PO intake prior to NPO status averaging 19% since admission. Recommend advance diet as tolerated pending results of LINE TECHNICIAN eval for safe food texture and liquid consistency. Recommend addition of nutritional supplement once safe liquid consistency is established. RD available for further consult as needed.
--- NOTE | 2021-03-26 13:04 | PC.SOCIAL ---
IMM UPDATE Gave patient's mother, IMM update. She verbalized understanding. 03/26/21 @ 0919. Initialed, dated, timed and placed in chart.
[2021-03-26] MEDS: FUROsemide 10 mg/mL SDV 2mL 20 MG IVP (14:06)
--- NOTE | 2021-03-26 17:06 | PM.PN ---
Subjective Subjective: Interval history: Patient continues to have coughing bouts. On examination today sitting up in bed. On nasal cannula 3 L saturating 91%. States he is comfortable. Denies any further nausea vomiting. As per nurse patient is having cough while eating or taking his medications. Yesterday after further discussion with patient's brother over the phone mother finally agreed to start patient on remdesivir. Medications: Reviewed: Yes Vitals/I&O/Wt Last Vital Signs Temp 98.8 F 03/26/21 12:20 Pulse 107 H 03/26/21 12:20 Resp 18 03/26/21 12:20 BP 178/99 03/26/21 12:20 Pulse Ox 91 03/26/21 12:20 03/26/21 03/26/21 03/26/21 06:59 14:59 22:59 Intake Total 913.333 / 2423.333 700 / 700 Output Total 820 / 1820 Balance 93.333 / 603.333 700 / 700 Physical Exam Narrative: EXAM NARRATIVE: General: No acute distress, AO x 1-2, following simple commands HEENT:, PERRLA, pupils bilaterally equal and reactive Chest: Normal vesicular breath sounds, bilateral rhonchi present all over the lung amaya, equal good air entry bilaterally CVS: S1-S2 regular, no murmurs, no tachycardia, no gallops, no rubs Abdomen: Soft, nontender, no organomegaly, bowel sounds present Neuro: No focal deficits, no facial deformity, AO x3, power 5/5 in all limbs Urinary Catheter Management^: Rose: Cath Placed During This Visit: yes Reason for Continuing Indwelling Catheter: Accurate Measurement of Urinary Output in Critically Ill Patients Urinary Catheter Date of Insertion: 03/21/21 Urinary Catheter Time of Insertion: 23:10 Data : 03/26/21 06:40 03/26/21 06:40 Micro: Microbiology 03/25/21 14:07 Blood Culture - Preliminary Blood NEGATIVE TO DATE 03/25/21 14:07 Blood Culture - Preliminary Blood 03/26/21 06:45 Blood Culture - Preliminary Blood SPECIMEN COLLECTED 03/26/21 06:40 Blood Culture - Preliminary Blood SPECIMEN COLLECTED 03/24/21 15:30 MRSA Culture - Final Nose A&P Assessment and plan (1) Hypoxia: Status: Acute (2) COVID-19: Status: Acute (3) Rhabdomyolysis: Status: Acute (4) Transaminitis: Likely secondary to rhabdomyolysis: Gallbladder ultrasound: Diffuse fatty infiltration of the liver. Normal gallbladder. Normal common bile duct. Status: Acute (5) Severe dehydration: Status: Acute (6) Sinus tachycardia: EKG :Sinus tachycardia Status: Acute (7) Benign essential hypertension with target blood pressure below 140/90: Status: Acute Additional A&P Information Hypoxia secondary to COVID-19: Mild disease. Oxygen supplementation keeping saturation over 90%. Continue with remdesivir to finish a 5-day course. Last dose on March 29. Dexamethasone 6 mg IV daily. Vitamin C, zinc. Tessalon Perles, Robitussin as needed. Continue patient with Advair. Add Spiriva. Pulmonary toilet with incentive spirometry and flutter valve as possible and to tolerated. Procalcitonin elevated today. MRSA swab negative. Patient is a high risk of aspiration pneumonia. Sputum culture awaited. Continue with Zosyn. NPO. Swallow evaluation. Check sputum culture. Start patient on Zosyn. D-dimer continues to worsen. Patient requiring higher oxygen supplementation. Switch over to full dose Lovenox. Patient's hemoglobin has remained stable. Check CTA to rule out pulmonary embolism. Given hypoxia we will try to keep patient on newspaper carrier side. Stop IV fluids. IV Lasix 20 mg stat. Strict input output charting, daily weights. Continue to monitor inflammatory markers including ferritin, CRP, ESR, D-dimer. Currently worsening. If continues to worsen can give 1 dose of Actemra. Rhabdomyolysis: Most likely secondary to dehydration and hypoxia on admission. Resolved. Continue to check CPK daily. Hypertension: No history of hypertension. Goal blood pressure less than 140/90 mmHg. Blood pressure is elevated. Increase amlodipine to 10 mg. Add metoprolol 50 mg twice daily. Coffee-ground emesis: Hemoglobin stable. Protonix 40 mg twice daily. Continue to monitor hemoglobin. Oral iron supplementation. CODE STATUS: Full code status with mother at bedside today. She would want patient to be on ventilator if needed. She would revisit CODE STATUS that point. DVT prophylaxis: Full dose Lovenox. NPO. Swallow evaluation. Discharge planning: Patient's caregiver who is the mother is also suffering from Covid. She is requesting patient to be placed at SNF for short-term while she recovers. Case management has been alerted. Attestations Medical Necessity Statement*: Requires further hospitalization for management of hypoxia secondary to COVID-19 pneumonia, cerebral palsy while safe discharge planning is sought. Time Spent in Patient Care: Greater than 35 minutes (>than 50% of time spent in counselling and/or direct pt care on unit). Coding Level of Care Code Acute Quill Buncher And Sorter for g Fwd Diagnoses Hypoxia R09.02 COVID-19 U07.1 Rhabdomyolysis M62.82 Transaminitis R74.01 Severe dehydration E86.0 Sinus tachycardia R00.0 Benign essential hypertension with target blood pressure below 140/90 I10
[2021-03-26] MEDS: enoxaparin 40 mg/0.4 mL Syringe SUBCUT (17:11)
[2021-03-26] MEDS: remdesivir 100 MG in sodium chloride 0.9% (100 ml) 100 ML IV (18:40)
[2021-03-26] MEDS: metoprolol tartrate 50 mg Tablet PO (21:29)
[2021-03-26] MEDS: ipratropium-albuterol 3 mL Neb INHALATION (21:34)
[2021-03-26] MEDS: budesonide 0.5 mg/2 mL Neb INHALATION (21:34)
[2021-03-27] VITALS (20 sets, daily range): BP systolic 115–131; BP diastolic 62–72; PULSE 102–148; RESP 16–24; TEMP 36.6–36.7; O2SAT 87–93
[2021-03-27] MEDS: ipratropium-albuterol 3 mL Neb INHALATION ×5 (00:28→16:20)
[2021-03-27] MEDS: dexamethasone 4 mg/mL INJ 6 MG IVP (01:37)
[2021-03-27] MEDS: pantoprazole 40 mg SDV IVP ×2 (04:58→17:01)
--- NOTE | 2021-03-27 06:00 | XR_ITS ---
WS: [id number] XR chest 1V portable [id number] REASON FOR EXAM: covid FINDINGS: Infiltrates in the periphery of the right lung are relatively unchanged. No significant change in the infiltrative process in the left lower lung. No new findings. XR/XR chest 1V portable [id number] IMPRESSION: Stable abnormal chest.
[2021-03-27] MEDS: piperacillin-tazobactam 3.375 GM in sodium chloride 0.9% (plus) 50 ML IV (07:06)
[2021-03-27] MEDS: enoxaparin 80 mg/0.8 mL Syringe 70 MG SUBCUT ×2 (07:07→17:01)
[2021-03-27 08:01] LABS: Procalcitonin 1.23 ng/mL (0-0.5)
[2021-03-27 08:12] LABS: C Reactive Protein 50.1 mg/L (0.0-4.9); Creatine Phosphokinase 114 U/L (39-308)
[2021-03-27] MEDS: budesonide 0.5 mg/2 mL Neb INHALATION ×2 (08:36→21:09)
[2021-03-27 08:37] LABS: Erythrocyte Sedimentation Rate 38 mm/hr (0-10)
[2021-03-27 08:38] LABS: Ferritin 1458 ng/mL (30-400)
--- NOTE | 2021-03-27 09:00 | CT_ITS ---
WS: [id number] CTA OF THE CHEST WITH PULMONARY EMBOLISM PROTOCOL TECHNIQUE: High-resolution contrast enhanced CTA of the chest with coronal and sagittal reformatted i mages with pulmonary embolism protocol. MIP images are also reviewed. CLINICAL INFORMATION: covid COMPARISON: 3 20,019 DLP: 617.[address] scans at [facility] use at least one of these dose optimization techniques: automat ed exposure control; mA and/or kV adjustment per patient size (includes targeted exams where dose is matched to clinical indication); or iterative reconstruction. FINDINGS: Proximal main pulmonary arteries are normal. Segmental pulmonary arteries appear patent. Distal subse gmental pulmonary arteries not well evaluated due to beam hardening and respiratory motion artifact. Normal caliber thoracic aorta. Prominent AP window, anterior mediastinal, and peribronchial lymph nod es likely reactive. Bilateral perihilar bronchovascular thickening. Diffuse bilateral hazy subpleural groundglass infiltrates right greater than left compatible with COV ID 19 pneumonia. No focal consolidation or pleural fluid. Moderate chronic emphysematous changes. No significant pericardial effusion. Adrenal glands are normal. Diffuse fatty infiltration the liver. Small esophageal hiatal hernia. 2.5 cm left renal cyst. CT/CT angio chest PE protcl [id number] IMPRESSION: 1. Proximal main pulmonary arteries are normal. Distal pulmonary arteries not well evaluated due to artifact. No evidence of proximal pulmonary embolus. 2. Moderate diffuse bilateral subpleural hazy groundglass infiltrates compatib le with Covid 19 pneumonia. No focal consolidation or pleural fluid. 3. A few reactive anterior mediastinal, peribronchial, AP window lymph nodes. 4. Small esophageal hiatal hernia. 5. No other significant findings.
[2021-03-27] MEDS: FUROsemide 10 mg/mL SDV 2mL 20 MG IVP (12:12)
--- NOTE | 2021-03-27 12:26 | CT_ITS ---
WS: [id number] CT LUMBAR SPINE TECHNIQUE: Contrast-enhanced CT of the lumbar spine with coronal and sagittal reformatted images. CLINICAL INFORMATION: r/o discitis, abscess COMPARISON: None. DLP: 2221.[address] scans at [facility] use at least one of these dose optimization techniques: automat ed exposure control; mA and/or kV adjustment per patient size (includes targeted exams where dose is matched to clinical indication); or iterative reconstruction. FINDINGS: Mild lumbar curve. No acute compression. No high-grade central canal stenosis. No evidence of disciti s/osteomyelitis. No evidence of epidural abscess. Normal paravertebral soft tissues. No significant s delicia canal or foraminal narrowing. 2.5 cm left renal cyst. CT/CT lumbar spine w con [id number] IMPRESSION: 1. No acute lumbar spine findings. 2. No evidence of discitis/osteomyelitis. 3. No evidence of epidural abscess. Spinal canal is patent.
--- NOTE | 2021-03-27 12:26 | CT_ITS ---
WS: [id number] CT THORACIC SPINE TECHNIQUE: Contrast-enhanced CT of the thoracic spine with coronal and sagittal reformatted images. CLINICAL INFORMATION: r/o discitis, abscess COMPARISON: None. DLP: 2311.[address] scans at [facility] use at least one of these dose optimization techniques: automat ed exposure control; mA and/or kV adjustment per patient size (includes targeted exams where dose is matched to clinical indication); or iterative reconstruction. FINDINGS: Mild thoracic curve. Mild thoracic kyphosis. Mild degenerative changes in the mid thoracic spine with endplate Schmorl's nodes. No acute compression fractures. No high-grade central canal stenosis. No e vidence of discitis or osteomyelitis. No evidence of epidural abscess or paravertebral inflammatory s tranding. Partially visualized pulmonary infiltrates. Left renal cyst measuring 3.1 cm. Adrenal glands are norm al. CT/CT thoracic spine w con [id number] IMPRESSION: 1. No evidence of discitis or osteomyelitis. 2. No evidence of epidural abscess. Spinal canal is patent. 3. Partially visualized pulmonary infiltrates.
[2021-03-27] MEDS: ceFAZolin 1,000 MG in sodium chloride 0.9% (plus) 50 ML 100 MG IV ×2 (13:53→21:51)
[2021-03-27] MEDS: iohexol 300 mg/mL 100 mL Btl IV ×2 (15:40→15:43)
--- NOTE | 2021-03-27 16:23 | PM.PN ---
Subjective Subjective: Interval history: Today morning on examination patient is sleeping comfortably in bed. He is on 15 L high flow nasal cannula saturating 88%. He was transitioned over to heated high flow and start saturating well on 40 L 65%. Diet order was changed as per speech therapy evaluation. T-max in last 24 hours afebrile. Patient has been having tachycardia with heart rate going up to 120s. Sinus. Medications: Reviewed: Yes Vitals/I&O/Wt Last Vital Signs Temp 98.0 F 03/27/21 16:00 Pulse 112 H 03/27/21 16:00 Resp 20 H 03/27/21 16:00 BP 131/66 03/27/21 16:00 Pulse Ox 89 L 03/27/21 16:00 03/27/21 03/27/21 03/27/21 06:59 14:59 22:59 Intake Total 650 / 650 50 / 700 Output Total 600 / 3500 1000 / 1000 Balance -600 / -1550 -350 / -350 50 / -300 Physical Exam Narrative: EXAM NARRATIVE: General: No acute distress, AO x 1-2, following simple commands HEENT:, PERRLA, pupils bilaterally equal and reactive Chest: Normal vesicular breath sounds, bilateral rhonchi present all over the lung amaya, equal good air entry bilaterally CVS: S1-S2 regular, no murmurs, no tachycardia, no gallops, no rubs Abdomen: Soft, nontender, no organomegaly, bowel sounds present Neuro: No focal deficits, no facial deformity, AO x3, power 5/5 in all limbs Urinary Catheter Management^: Rose: Cath Placed During This Visit: yes Reason for Continuing Indwelling Catheter: Accurate Measurement of Urinary Output in Critically Ill Patients Urinary Catheter Date of Insertion: 03/21/21 Urinary Catheter Time of Insertion: 23:10 Data : 03/26/21 06:40 03/26/21 06:40 Micro: Microbiology 03/27/21 13:48 Blood Culture - Preliminary Blood SPECIMEN COLLECTED 03/27/21 13:42 Blood Culture - Preliminary Blood SPECIMEN COLLECTED 03/25/21 14:07 Blood Culture - Preliminary Blood Staphylococcus aureus 03/25/21 14:07 Blood Culture - Preliminary Blood Staphylococcus aureus 03/26/21 06:40 Blood Culture - Preliminary Blood Gram positive cocci 03/26/21 06:45 Blood Culture - Preliminary Blood Gram positive cocci A&P Assessment and plan (1) Sepsis: Status: Acute (2) Staphylococcus aureus bacteremia: Status: Acute (3) Hypoxia: Status: Acute (4) COVID-19: Status: Acute (5) Rhabdomyolysis: Status: Acute (6) Transaminitis: Likely secondary to rhabdomyolysis: Gallbladder ultrasound: Diffuse fatty infiltration of the liver. Normal gallbladder. Normal common bile duct. Status: Acute (7) Severe dehydration: Resolved. Status: Acute (8) Sinus tachycardia: EKG :Sinus tachycardia Status: Acute (9) Benign essential hypertension with target blood pressure below 140/90: Status: Acute Additional A&P Information Sepsis: Staph bacteremia: Repeat blood cultures. Keep mean arterial pressure 65. Unknown source. Check echocardiogram to rule out infective endocarditis. Lumbar thoracic spine CT scan to rule out discitis or vertebral abscess. Switch antibiotics to cefazolin 1 g every 8 hourly. MRSA swab from nares negative. Hypoxia secondary to COVID-19: Moderate disease. Oxygen supplementation keeping saturation over 90%. Continue with remdesivir to finish a 5-day course. Last dose on March 29. Dexamethasone 6 mg IV daily. Vitamin C, zinc. Tessalon Perles, Robitussin as needed. Switch to ipratropium, Xopenex every 4 hours, budesonide twice daily. Switching from duo nebs to Xopenex because of tachycardia. Pulmonary toilet with incentive spirometry and flutter valve as possible and to tolerated. Procalcitonin elevated today. MRSA swab negative. Patient is a high risk of aspiration pneumonia. Sputum culture awaited. Antibiotics changed as above. Diet changes as per swallow evaluation. D-dimer continues to worsen. Patient requiring higher oxygen supplementation. CTA negative for proximal pulmonary margin. For now continue with full dose anticoagulation. Will monitor hemoglobin. Given hypoxia we will try to keep patient on back tender pulp drier side. Stop IV fluids. IV Lasix 20 mg stat. Will dose Lasix 30 as per the fluid status. Currently 4 L positive since admission. Strict input output charting, daily weights. Continue to monitor inflammatory markers including ferritin, CRP, ESR, D-dimer. Currently worsening. If continues to worsen can give 1 dose of Actemra. Rhabdomyolysis: Most likely secondary to dehydration and hypoxia on admission. Resolved. Continue to check CPK daily. Hypertension: No history of hypertension. Goal blood pressure less than 140/90 mmHg. Blood pressure is elevated. Continue with metoprolol 50 mg twice daily for persistent tachycardia. Will also help with blood pressure. Coffee-ground emesis: Hemoglobin stable. Protonix 40 mg twice daily. Continue to monitor hemoglobin. Oral iron supplementation. CODE STATUS: Full code status with mother at bedside today. She would want patient to be on ventilator if needed. She would revisit CODE STATUS that point. DVT prophylaxis: Full dose Lovenox. Dysphagia 1 diet. Call patient's family members including brother Gino and mother Teresa multiple times of the day but unable to get in touch with them. Voicemail left. Discharge planning: Patient's caregiver who is the mother is also suffering from Covid. She is requesting patient to be placed at SNF for short-term while she recovers. Awaiting safe placement. Attestations Medical Necessity Statement*: Requires further hospitalization for management of Staphylococcus bacteremia, severe hypoxia secondary to COVID-19 pneumonia requiring heated high flow supplementation. Time Spent in Patient Care: Greater than 35 minutes (>than 50% of time spent in counselling and/or direct pt care on unit). Coding Level of Care Code Acute Community Outreach Worker for g Fwd Diagnoses Sepsis A41.9 Staphylococcus aureus bacteremia R78.81; B95.61 Hypoxia R09.02 COVID-19 U07.1 Rhabdomyolysis M62.82 Transaminitis R74.01 Severe dehydration E86.0 Sinus tachycardia R00.0 Benign essential hypertension with target blood pressure below 140/90 I10
[2021-03-27] MEDS: metoprolol tartrate 50 mg Tablet PO (16:57)
[2021-03-27] MEDS: ascorbic acid 500 mg Tablet 1000 MG PO (17:00)
[2021-03-27] MEDS: remdesivir 100 MG in sodium chloride 0.9% (100 ml) 100 ML IV (17:01)
[2021-03-27] MEDS: cyclobenzaprine 10 mg Tablet PO (17:01)
[2021-03-27] MEDS: ferrous gluconate 324 mg Tablet PO (17:01)
[2021-03-27] MEDS: levalbuterol 0.63 mg/3 mL Neb INHALATION ×2 (21:09→23:38)
[2021-03-27] MEDS: ipratropium 0.5 mg/2.5 mL Neb INHALATION ×2 (21:09→23:38)
[2021-03-27] MEDS: benzonatate 100 mg Capsule PO (21:52)
[2021-03-28] VITALS (13 sets, daily range): BP systolic 115–141; BP diastolic 68–79; PULSE 94–122; RESP 2–34; TEMP 36.6–36.9; O2SAT 88–94
[2021-03-28] MEDS: dexamethasone 4 mg/mL INJ 6 MG IVP (01:13)
[2021-03-28] MEDS: levalbuterol 0.63 mg/3 mL Neb INHALATION ×6 (03:55→23:33)
[2021-03-28] MEDS: ipratropium 0.5 mg/2.5 mL Neb INHALATION ×6 (03:55→23:33)
[2021-03-28 04:47] LABS: ABG PCO2 34.7 mmHg (35-45); ABG PH Result 7.54 (7.35-7.45); Alveolar-Arterial Oxygen Gradi 44.2 mmHg (5-10); Arterial Blood Gas Hematocrit 46.4 % (42-52); Base Excess ABG 7.1 mmol/L (-2.0-2.0); Blood Gas Allen Test Pos; Blood Gas Operator Identificat BD; Blood Gas Sample Site Brachial, left; Blood Gas Sample Type Arterial; Carboxyhemoglobin 0.7 %THgb (0.4-20.1); HCO3 ABG 29.7 mmol/L (22-26); HGB O2 Sat 90.9 % (95-100); Ionized Calcium Level - ABG 1.5 mmol/L (1.1-1.4); Methemoglobin 0.7 % (0.4-1.5); Oxygen Device NC; Oxygen Saturation ABG 92.2; PO2 ABG 58.5 mmHg (80.0-100.0); Potassium Level - ABG 4.5 mmol/L (3.5-5.0); Total Hemoglobin 15.1 g/dL (14-18)
--- NOTE | 2021-03-28 05:00 | USCV_ITS ---
Guille Lucero Age: 61 Gender: M : 1960 Exam Date: 03/28/2021 15:48 Ordering Phys: Omar Chou MD Technologist: Ashlee Beverly [place] [facility] [place]: [place] + TACHY BP: 118 / 68 HR: 100 Rhythm: Sinus Technical Quality: Adequate MEASUREMENTS (Male / Female) Normal Values 2D ECHO LV Diastolic Diameter PLAX 4.4 cm 4.2 - 5.9 / 3.9 - 5.3 cm LV Systolic Diameter PLAX 3.1 cm LV Chamber Size 3.6 cm IVS Diastolic Thickness 1.2 cm 0.6 - 1.0 / 0.6 - 0.9 cm IVS Systolic Thickness 1.6 cm LVPW Diastolic Thickness 0.9 cm 0.6 - 1.0 / 0.6 - 0.9 cm LVPW Systolic Thickness 1.6 cm RV Chamber Size 3.2 cm LVOT Diameter 2.1 cm LV Ejection Fraction 2D Teich 58.5 % LV Ejection Fraction MOD 2C 59.5 % LV Ejection Fraction 2C AL 59.9 % LA Diameter 2.5 cm LA Width 3.0 cm LA Height 3.0 cm RA Width 3.3 cm RA Height 3.2 cm Aorta at Sinotubular Diameter 3.0 cm M-MODE LV Diastolic Diameter MM 3.3 cm 4.2 - 5.9 / 3.9 - 5.3 cm LV Systolic Diameter MM 2.1 cm LV Ejection Fraction MM Teich 68.5 % IVS Diastolic Thickness MM 0.9 cm 0.6 - 1.0 / 0.6 - 0.9 cm IVS Systolic Thickness MM 1.1 cm LVPW Diastolic Thickness MM 0.9 cm 0.6 - 1.0 / 0.6 - 0.9 cm LVPW Systolic Thickness MM 1.3 cm Aortic Annulus Diameter 4.1 cm LA Ao Ratio MM 0.6 MV E Point Septal Separation 0.4 cm DOPPLER AV Peak Velocity 115.0 cm/s LVOT Peak Velocity 93.0 cm/s AV Area Cont Eq vti 2.4 cm squared AV Area Cont Eq pk 2.8 cm squared MV Area PHT 4.0 cm squared MV E' Velocity 52.0 cm/s Mitral E to MV E' Ratio 7.4 Mitral E to LV E' Lateral Ratio 8.1 Mitral E to LV E' Septal Ratio 6.9 TR Peak Velocity 90.6 cm/s TR Peak Gradient 3.3 mmHg TR Mean Velocity 67.4 cm/s TR Mean Gradient 1.9 mmHg TR Velocity Time Integral 14.0 cm TV Peak E Velocity 55.0 cm/s Right Atrial Pressure 15.0 mmHg Pulmonary Artery Systolic Pressu 18.3 mmHg PV Peak Velocity 81.0 cm/s RV Acceleration Time 0.1 s RV Ejection Time 0.3 s RV AcT/ET 0.3 FINDINGS Left Ventricle Normal left ventricular cavity size. Normal left ventricular systolic function. Left ventricular ejection fraction is estimated at 60 %. Moderate left ventricular hypertrophy of concentric type. Grade I/IV diastolic dysfunction (abnormal relaxation filling pattern), normal to mildly elevated filling pressures. Right Ventricle The right ventricle is normal in size and function. Right Atrium The right atrium is normal in size. Left Atrium The left atrium is normal in size. Mitral Valve Mildly thickened mitral valve. No mitral valve stenosis. Mild mitral valve regurgitation. Aortic Valve Structurally normal aortic valve without significant sclerosis or stenosis. There is no aortic regurgitation. Tricuspid Valve [id number] tricuspid valve regurgitation. Pulmonic Valve Structurally normal pulmonic valve without significant stenosis. There is no pulmonic regurgitation. Pericardium Normal pericardium without effusion. Aorta Normal ascending aorta dimension. CONCLUSIONS 1-Normal left ventricular cavity size. Normal left ventricular systolic function. Left ventricular ejection fraction is estimated at 60 %. Moderate left ventricular hypertrophy of concentric type. Grade I/IV diastolic dysfunction (abnormal relaxation filling pattern), normal to mildly elevated filling pressures. 2-Mildly thickened mitral valve. No mitral valve stenosis. Mild mitral valve regurgitation. 3-Structurally normal aortic valve without significant sclerosis or stenosis. There is no aortic regurgitation. 6-Vwvc-kz-moderate tricuspid valve regurgitation. 5-Right atrial pressure is around 5 mm of mercury. 6-No significant change since the prior echocardiogram study of 10/22/2017. Deann Hernández MD (Electronically Signed) Final Date: 29 March 2021 16:36 S
[2021-03-28] MEDS: enoxaparin 80 mg/0.8 mL Syringe 70 MG SUBCUT ×2 (05:57→18:59)
[2021-03-28] MEDS: ceFAZolin 1,000 MG in sodium chloride 0.9% (plus) 50 ML 100 MG IV (05:57)
[2021-03-28] MEDS: pantoprazole 40 mg SDV IVP ×2 (06:02→20:52)
[2021-03-28 08:46] LABS: Basophils % 0.1 %; Hematocrit 45.3 % (42.0-52.0); Hemoglobin 14.7 g/dL (11.7-16.6); Mean Corpuscular HGB Conc 32.5 g/dL (30.0-36.0); Mean Corpuscular Hemoglobin 27.7 pg (28.0-34.0); Mean Corpuscular Volume 85.3 fL (80-94); Mean Platelet Volume 12.9 fL (7.4-10.4); Monocytes # 1.5 10^3/uL (0.2-0.9); Monocytes % 9.9 %; Neutrophils # 11.47 10^3/uL (1.8-7.7); Neutrophils % 78.1 %; Nucleated Red Blood Cells % 0 %; Platelet Count 223 10^3/cmm (130-400); Red Blood Count 5.31 10^6/uL (4.1-5.3); Red Cell Distribution Width 13.5 % (12.1-15.1); White Blood Count 14.7 10^3/uL (4.0-10.0)
[2021-03-28 09:11] LABS: Alanine Aminotransferase 54 U/L (0-41); Albumin Level 2.6 g/dL (3.5-5.2); Alkaline Phosphatase 60 IU/L (40-130); Anion Gap 13.8 (5-19); Aspartate Amino Transferase 26 U/L (0-40); Blood Urea Nitrogen 34 mg/dL (8-23); Calcium 10.2 mg/dL (8.5-10.5); Carbon Dioxide 26 mmol/L (22-29); Chloride 108 mmol/L (98-107); Globulin 3.5 g/dL (1.3-4.6); Glomerular Filtration Rate 98.6 mL/min (90-130); Glucose 211 mg/dL (65-115); Osmolality Calculated 310 mOsm/kg (285-295); Potassium 4.8 mmol/L (3.5-5.1); Sodium 143 mmol/L (136-145); Total Bilirubin 0.6 mg/dL (0.15-1.2); Total Protein 6.1 g/dL (6.6-8.7)
[2021-03-28 09:20] LABS: Creatine Phosphokinase 70 U/L (39-308); NT Pro B Type Natriuretic Pept 1723 pg/mL (0-125)
[2021-03-28 09:39] LABS: Slide Review Slide Review Perform
[2021-03-28] MEDS: budesonide 0.5 mg/2 mL Neb INHALATION ×2 (09:52→20:50)
[2021-03-28 09:58] LABS: Erythrocyte Sedimentation Rate 40 mm/hr (0-10)
[2021-03-28 10:40] LABS: Ferritin 1248 ng/mL (30-400)
[2021-03-28] MEDS: ferrous gluconate 324 mg Tablet PO ×2 (10:50→18:59)
[2021-03-28] MEDS: ascorbic acid 500 mg Tablet 1000 MG PO ×2 (10:50→19:04)
[2021-03-28] MEDS: zinc gluconate 50 mg Tablet PO (10:51)
[2021-03-28] MEDS: cyclobenzaprine 10 mg Tablet PO ×2 (10:51→18:59)
[2021-03-28] MEDS: metoprolol tartrate 50 mg Tablet PO (10:52)
[2021-03-28] MEDS: azithromycin 250 mg Tablet 500 MG PO (10:52)
[2021-03-28] MEDS: benzonatate 100 mg Capsule PO ×3 (10:53→20:52)
--- NOTE | 2021-03-28 11:14 | ECG_ITS ---
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
[2021-03-28] MEDS: diphenhydrAMINE 50 mg/mL SDV 1mL 12.5 MG IVP (11:30)
[2021-03-28] MEDS: FUROsemide 10 mg/mL SDV 4mL 40 MG IVP (11:30)
--- NOTE | 2021-03-28 11:46 | PC.SOCIAL ---
IMM update IMM not updated due to patient not expecting to discharge in the next 24-48 hours.
--- NOTE | 2021-03-28 13:19 | PM.PN ---
Subjective Subjective: Interval history: No events overnight. Patient currently on 40 to 60% oxygen supplementation saturating 1%. He is comfortable in the bed. At baseline x2. Denies any nausea vomiting, headache. States he feels comfortable. Persistently tachycardic. EKG shows atrial fibrillation. Medications: Reviewed: Yes Vitals/I&O/Wt Last Vital Signs Temp 97.8 F 03/28/21 04:00 Pulse 106 H 03/28/21 12:35 Resp 20 H 03/28/21 12:35 BP 122/70 03/28/21 04:00 Pulse Ox 91 03/28/21 12:35 03/27/21 03/28/21 03/28/21 22:59 06:59 14:59 Intake Total 270 / 920 50 / 970 50 / 50 Output Total 1150 / 2150 Balance 270 / -80 -1100 / -1180 50 / 50 Physical Exam Narrative: EXAM NARRATIVE: General: No acute distress, AO x 2, following simple commands HEENT:, PERRLA, pupils bilaterally equal and reactive Chest: Normal vesicular breath sounds, bilateral rhonchi present all over the lung amaya, equal good air entry bilaterally CVS: S1-S2 regular, no murmurs, no tachycardia, no gallops, no rubs Abdomen: Soft, nontender, no organomegaly, bowel sounds present Neuro: No focal deficits, no facial deformity, AO x3, power 5/5 in all limbs Urinary Catheter Management^: Rose: Cath Placed During This Visit: yes Reason for Continuing Indwelling Catheter: Accurate Measurement of Urinary Output in Critically Ill Patients Urinary Catheter Date of Insertion: 03/21/21 Urinary Catheter Time of Insertion: 23:10 Data : 03/28/21 07:16 03/28/21 07:16 Micro: Microbiology 03/25/21 14:07 Blood Culture - Preliminary Blood Staphylococcus aureus 03/25/21 14:07 Blood Culture - Preliminary Blood Staphylococcus aureus 03/27/21 13:48 Blood Culture - Preliminary Blood SPECIMEN COLLECTED 03/27/21 13:42 Blood Culture - Preliminary Blood SPECIMEN COLLECTED 03/26/21 06:40 Blood Culture - Preliminary Blood Gram positive cocci 03/26/21 06:45 Blood Culture - Preliminary Blood Gram positive cocci A&P Assessment and plan (1) ARDS (adult respiratory distress syndrome): Status: Acute (2) Sepsis: Status: Acute (3) Staphylococcus aureus bacteremia: Status: Acute (4) COVID-19: Status: Acute (5) Atrial fibrillation: Status: Acute (6) Benign essential hypertension with target blood pressure below 140/90: Status: Acute (7) Severe dehydration: Resolved. Status: Acute (8) Transaminitis: Likely secondary to rhabdomyolysis: Gallbladder ultrasound: Diffuse fatty infiltration of the liver. Normal gallbladder. Normal common bile duct. Status: Acute (9) Rhabdomyolysis: Status: Acute Additional A&P Information Sepsis: Staph bacteremia: Initial blood cultures positive for MSSA. Repeat blood cultures have remained preliminary negative for last 24 hours. Keep mean arterial pressure 65. Unknown source. Lumbothoracic CT scan negative for discitis or vertebral abscess. Echocardiogram awaited. Sensitivities appreciated. Switch from cefazolin to ceftriaxone 1 g IV daily. Patient will most likely need treatment for 4 weeks on discharge. We will consult ID for further recommendations. Severe ARDS secondary to COVID-19: Severe disease. PF ratio on ABG 94. Oxygen supplementation keeping saturation over 90%. Continue with remdesivir to finish a 5-day course. Last dose on March 29. Dexamethasone 6 mg IV daily. Vitamin C, zinc. Tessalon Perles, Robitussin as needed. Continue with ipratropium, Xopenex every 4 hours, budesonide twice daily. Switching from duo nebs to Xopenex because of tachycardia. Pulmonary toilet with incentive spirometry and flutter valve as possible and to tolerated. Diet changes as per swallow evaluation. D-dimer elevated. Continue with full dose anticoagulation. Monitor hemoglobin. Given hypoxia we will try to keep patient on cable tool driller side. Continue with diuresis. Patient still persistently positive. Net negative in last 24 hours. Lasix 40 mg stat. Strict input output charting, daily weights. Continue to monitor inflammatory markers including ferritin, CRP, ESR, D-dimer. Currently worsening. If continues to worsen can give 1 dose of Actemra. Atrial fibrillation: Rapid ventricular response. Increase dose of metoprolol to 75 mg twice daily. Full dose Lovenox will also help with anticoagulation. Echocardiogram once heart rate less than 100. Rhabdomyolysis: Most likely secondary to dehydration and hypoxia on admission. Resolved. Continue to check CPK daily. Hypertension: No history of hypertension. Goal blood pressure less than 140/90 mmHg. Blood pressures better. Continue metoprolol 75 mg twice daily. Coffee-ground emesis: Hemoglobin stable. Protonix 40 mg twice daily. Continue to monitor hemoglobin. Oral iron supplementation. CODE STATUS: DNR/DNI. DVT prophylaxis: Full dose Lovenox. Dysphagia 2 diet. Discussed patient's health in detail with his brother Gino. He says mother Teresa is back in the ER is not cold and not able to make any decisions. We discussed the fact that patient has MSSA bacteremia, severe ARDS due to COVID-19 pneumonia on setting of baseline cerebral palsy. Gino tells me that there is a family discussed his CODE STATUS yesterday with mother and they would like him to be DNR/DNI. CODE STATUS change in the system. Discharge planning: Patient's caregiver who is the mother is also suffering from Covid. She is requesting patient to be placed at SNF for short-term while she recovers. Awaiting safe placement. Attestations Medical Necessity Statement*: Requires further hospitalization for management of MSSA bacteremia, severe ARDS from COVID-19 pneumonia, atrial fibrillation with rapid ventricular response. Time Spent in Patient Care: Greater than 35 minutes (>than 50% of time spent in counselling and/or direct pt care on unit). Coding Level of Care Code Acute Housekeeping Room Inspector for [facility] Fwd Diagnoses ARDS (adult respiratory distress syndrome) J80 Sepsis A41.9 Staphylococcus aureus bacteremia R78.81; B95.61 COVID-19 U07.1 Atrial fibrillation I48.91 Benign essential hypertension with target blood pressure below 140/90 I10 Severe dehydration E86.0 Transaminitis R74.01 Rhabdomyolysis M62.82
[2021-03-28] MEDS: cefTRIAXone 1,000 MG in sodium chloride 0.9% (plus) 50 ML 100 MG IV (13:22)
[2021-03-28] MEDS: metoprolol tartrate 25 mg Tablet PO (15:06)
--- NOTE | 2021-03-28 15:52 | CTR_ITS ---
PROCEDURE INFORMATION: Exam: CT Maxillofacial Without Contrast Exam date and time: 03/28/2021 3:52 PM Age: 61 years old Clinical indication: Patient HX: Covid+ fever possible abscess; Additional info: Possible dental abscess TECHNIQUE: Imaging protocol: Computed tomography images of the face without contrast. Radiation optimization: All CT scans at this facility use at least one of these dose optimization techniques: automated exposure control; mA and/or kV adjustment per patient size (includes targeted exams where dose is matched to clinical indication); or iterative reconstruction. COMPARISON: No relevant prior studies available. RADIATION DOSE METRICS: Total DLP (mGy-cm): 885.89 FINDINGS: Orbital cavity: Orbits are normal. Globes are unremarkable. Bones/joints: No acute fracture. Paranasal sinuses: Normal. No air-fluid levels. Soft tissues: Unremarkable. CT/CT facial bones wo con* [id number] IMPRESSION: 1. No acute findings. 2. No soft tissue abscess identified. Radiation Dose CTDIVOL = (mGy): DLP = 885.89 (mGy-cm)
--- NOTE | 2021-03-28 15:52 | CTR_ITS ---
PROCEDURE INFORMATION: Exam: CT Neck Without Contrast Exam date and time: 03/28/2021 3:52 PM Age: 61 years old Clinical indication: Dysphagia / difficulty swallowing; Patient HX: Covid+ fever possible abscess TECHNIQUE: Imaging protocol: Computed tomography images of the neck without contrast. Radiation optimization: All CT scans at this facility use at least one of these dose optimization techniques: automated exposure control; mA and/or kV adjustment per patient size (includes targeted exams where dose is matched to clinical indication); or iterative reconstruction. COMPARISON: CT angio chest PE protcl [id number] 03/27/2021 8:17 AM RADIATION DOSE METRICS: Total DLP (mGy-cm): 512.5 FINDINGS: Nasopharynx: Unremarkable. Oropharynx: Unremarkable. No significant tonsillar enlargement. Hypopharynx: Unremarkable. Larynx: Unremarkable. Normal epiglottis. Retropharyngeal space: Unremarkable. Submandibular/Parotid glands: Normal. Glands are normal in size. Thyroid: Normal. No enlarged or calcified nodules. Lymph nodes: Unremarkable. No lymphadenopathy. Trachea: Visualized trachea is unremarkable. Lungs: Scattered patchy peripheral ground-glass lesions throughout the included upper lungs. Bones/joints: The cervical spine demonstrates moderate degenerative changes at multiple levels. No fractures. Unremarkable alignment. Soft tissues: Unremarkable. No significant soft tissue swelling. CT/CT neck con [id number] IMPRESSION: 1. No soft tissue abscess in the neck. 2. Ground-glass lesions in the upper lungs. Features consistent with atypical pneumonia such as COVID-19 pneumonia. Radiation Dose CTDIVOL = (mGy): DLP = 512.5 (mGy-cm)
[2021-03-28] MEDS: vancomycin 1,500 MG/300 ML PIGGYBACK 200 MG IV (18:52)
[2021-03-28] MEDS: metoprolol tartrate 50 mg Tablet 75 MG PO (20:51)
[2021-03-28] MEDS: remdesivir 100 MG in sodium chloride 0.9% (100 ml) 100 ML IV (20:52)
[2021-03-28 21:44] LABS: HIV 1 & 2 Antibody Non-Reactive (Non-Reactiv); HIV 1 & 2 Antigen Non-Reactive (Non-Reactiv)
--- NOTE | 2021-03-28 22:48 | PM.CONSULT ---
Providers/Reason For Consult Consulting Physician/Specialty*: Norma Luque MD/infectious disease Reason for Consult*: Persistent staph aureus bacteremia Attending Physician: Omar Chou MD Primary Care Provider: Neville Rodriguez DO History of Present Illness History of Present Illness Guille Lucero is a 61 year old male With past medical history as outlined below, currently admitted since March 21, 2021 for COVID-19 pneumonia and resulting ARDS. He is being managed by the hospitalist service for the Covid pneumonia. Upon admission he had fevers up to 101.7 up until 728. Thereafter has been afebrile. Infectious diseases consulted for persistent staph aureus bacteremia, culture positive since March 25, 2021. Limited history is available for patient due to cerebral palsy. He is unable to give me any details. Leukocytosis ranging between 11.6-14.7. Review of Systems General: Reports: ROS unobtainable due to medical condition Meds/Allergies Home Medications and Allergies Home Medications Medication Instructions Recorded Confirmed Last Taken Type cyclobenzaprine 10 mg PO BID 03/21/21 03/21/21 03/20/21 History lisinopril 20 mg PO DAILY 03/21/21 03/21/21 03/20/21 History omeprazole 20 mg PO BID 03/21/21 03/21/21 03/20/21 History Allergies Allergy/AdvReac Type Severity Reaction Status Date / Time No Known Allergies Allergy Unverified 03/21/21 14:55 Current Medications Current Medications Generic Name Dose Route Start Last Admin Trade Name Freq PRN Reason Stop Dose Admin Acetaminophen 650 mg 03/21/21 14:54 03/25/21 21:58 Acetaminophen 325 Mg Tablet PO 650 mg Q6H PRN Administration Mild/Mod Pain Or Temp >/= 101 Albuterol Sulfate 2 puff 03/21/21 15:39 03/26/21 17:30 Albuterol 8 Gm Mdi INHALATION 2 puff Q4H.RESPIRATORY PRN Administration SHORTNESS OF BREATH Amlodipine Besylate 10 mg 03/27/21 09:00 03/27/21 10:07 Amlodipine 5 Mg Tablet PO Not Given DAILY DAVE Ascorbic Acid 1,000 mg 03/24/21 18:00 03/28/21 19:04 Ascorbic Acid 500 Mg Tablet PO 1,000 mg BID DAVE Administration Azithromycin 500 mg 03/25/21 11:45 03/28/21 10:52 Azithromycin 250 Mg Tablet PO 500 mg DAILY DAVE Administration Protocol Benzonatate 100 mg 03/27/21 21:00 03/28/21 20:52 Benzonatate 100 Mg Capsule PO 100 mg TID DAVE Administration Budesonide 0.5 mg 03/22/21 20:00 03/28/21 20:50 Budesonide 0.5 Mg/2 Ml Neb INHALATION 0.5 mg BID.RESPIRATORY DAVE Administration Cyclobenzaprine HCl 10 mg 03/22/21 10:20 03/28/21 18:59 Cyclobenzaprine 10 Mg Tablet PO 10 mg BID DAVE Administration Dexamethasone 6 mg 03/21/21 15:00 03/28/21 01:13 Dexamethasone 4 Mg/Ml Inj IVP 6 mg Q24H DAVE Administration Diphenhydramine HCl 12.5 mg 03/23/21 11:05 03/28/21 11:30 Diphenhydramine 50 Mg/Ml Sdv 1ml IVP 12.5 mg Q4H PRN Administration ITCHING Enoxaparin Sodium 70 mg 03/26/21 18:00 03/28/21 18:59 Enoxaparin 80 Mg/0.8 Ml Syringe SUBCUT 70 mg Q12H DAVE Administration Ferrous Gluconate 324 mg 03/24/21 18:00 03/28/21 18:59 Ferrous Gluconate 324 Mg Tablet PO 324 mg BIDWM DAVE Administration Guaifenesin 200 mg 03/22/21 10:42 03/25/21 08:54 Guaifenesin 100 Mg/5 Ml Udc 10 Ml PO 200 mg Q4H PRN Administration COUGH AND CONGESTION Remdesivir 100 mg/ Sodium 100 mls @ 100 mls/hr 03/26/21 18:00 03/28/21 20:52 Chloride IV 03/29/21 20:59 100 mls/hr Q24H DAVE Administration Ipratropium [place] 0.5 mg 03/27/21 20:00 03/28/21 20:50 Ipratropium 0.5 Mg/2.5 Ml Neb INHALATION 0.5 mg Q4H.RESPIRATORY DAVE Administration Levalbuterol HCl 0.63 mg 03/27/21 16:39 03/28/21 20:50 Levalbuterol 0.63 Mg/3 Ml Neb INHALATION 0.63 mg Q4H.RESPIRATORY PRN Administration SHORTNESS OF BREATH Metoclopramide HCl 5 mg 03/25/21 04:01 03/26/21 00:18 Metoclopramide 5 Mg/Ml Sdv 2 Ml IVP 5 mg Q6H PRN Administration NAUSEA AND VOMITING Metoprolol Tartrate 75 mg 03/28/21 21:00 03/28/21 20:51 Metoprolol Tartrate 50 Mg Tablet PO 75 mg BID@0900,2100 DAVE Administration Ondansetron HCl 4 mg 03/21/21 14:54 03/26/21 11:28 Ondansetron 2 Mg/Ml Sdv 2 Ml IVP 4 mg Q8H PRN Administration vomiting, or N/V if npo Pantoprazole Sodium 40 mg 03/25/21 04:15 03/28/21 20:52 Pantoprazole 40 Mg Sdv IVP 40 mg Q12H DAVE Administration Zinc Gluconate 50 mg 03/25/21 09:00 03/28/21 10:51 Zinc Gluconate 50 Mg Tablet PO 50 mg DAILY DAVE Administration PFSH Acute PFSH: Medical History Cerebral palsy Vitals/I&O/Wt Last Vital Signs Temp 98.4 F 03/28/21 22:42 Pulse 94 03/28/21 22:42 Resp 22 H 03/28/21 22:42 BP 115/79 03/28/21 16:00 Pulse Ox 94 03/28/21 22:42 03/28/21 03/28/21 03/28/21 06:59 14:59 22:59 Intake Total 50 / 970 150 / 150 540 / 690 Output Total 1150 / 2150 200 / 200 Balance -1100 / -1180 150 / 150 340 / 490 Physical Exam Narrative: EXAM NARRATIVE: GEN: Awake, alert, on heated high flow CVS: S1S2 N RS: CTA B/L anteriorly Abd: Soft, nt/nd , bs+ DIRECTOR OF SOFTWARE ENGINEERING: no focal neuro deficits Urinary Catheter Management^: Rose: Cath Placed During This Visit: yes Reason for Continuing Indwelling Catheter: Accurate Measurement of Urinary Output in Critically Ill Patients Urinary Catheter Date of Insertion: 03/21/21 Urinary Catheter Time of Insertion: 23:10 Data Micro: Micro: Microbiology 03/28/21 19:54 Blood Culture - Pr eliminary Blood SPECIMEN [facility] 03/28/21 19:58 Blood Culture - Pr eliminary Blood SPECIMEN [facility] 03/27/21 13:48 Blood Culture - Pr eliminary Blood Gram positive c occi 03/27/21 13:42 Blood Culture - Pr eliminary Blood Gram positive c occi 03/26/21 06:45 Blood Culture - Pr eliminary Blood Staphylococcus aureus 03/26/21 06:40 Blood Culture - Pr eliminary Blood Staphylococcus aureus 03/25/21 14:07 Blood Culture - Pr eliminary Blood Staphylococcus aureus 03/25/21 14:07 Blood Culture - Pr eliminary Blood Staphylococcus aureus Other Data: Attestation for Other Data: I personally reviewed and interpreted the following: Other data: Laboratory Results WBC 14.7 10^3/uL (4.0 -10.0) H 03/28/21 07:16 RBC 5.31 10^6/uL (4.1 -5.3) H 03/28/21 07:16 Hgb 14.7 g/dL (11.7-1 6.6) 03/28/21 07:16 Hct 45.3 % (42.0-52.0 ) 03/28/21 07:16 MCV 85.3 fL (80-94) 03/28/21 07:16 MCH 27.7 pg (28.0-34. 0) L 03/28/21 07:16 MCHC 32.5 g/dL (30.0-3 6.0) 03/28/21 07:16 RDW 13.5 % (12.1-15.1 ) 03/28/21 07:16 Plt Count 223 10^3/cmm (130 -400) 03/28/21 07:16 MPV 12.9 fL (7.4-10.4 ) H 03/28/21 07:16 Neut % (Auto) 78.1 % 03/28/21 07:16 Lymph % (Auto) 7.0 % 03/28/21 07:16 Clarke % (Auto) 9.9 % 03/28/21 07:16 Eos % (Auto) 0.0 % 03/28/21 07:16 Baso % (Auto) 0.1 % 03/28/21 07:16 Neut # (Auto) 11.47 10^3/uL (1. 8-7.7) H 03/28/21 07:16 Lymph # (Auto) 1.0 10^3/uL (0.8- 4.8) 03/28/21 07:16 Clarke # (Auto) 1.5 10^3/uL (0.2- 0.9) H 03/28/21 07:16 Eos # (Auto) 0.0 10^3/uL (0.0- 0.8) 03/28/21 07:16 Baso # (Auto) 0.0 10^3/uL (0.0- 0.1) 03/28/21 07:16 Nucleated RBC % (a uto) 0 % 03/28/21 07:16 Total Counted 100 (0-100) 03/26/21 06:40 Atypical Lymphs % 0.0 % (0-5) 03/26/21 06:40 Absolute Neutrophi ls 10.7 10^3/cmm (1. 4-6.5) H 03/26/21 06:40 Segmented Neutroph ils 69 % 03/26/21 06:40 Abs Segm Neuts (Ma n) 7.9 10/cmm (1.6-7 .1) H 03/26/21 06:40 Band Neutrophils 25.0 % 03/26/21 06:40 Abs Band Neuts (Ma n) 2.9 10^3/cmm (0.0 -1.2) H 03/26/21 06:40 Absolute Lymphocyt es 0.3 10^3/cmm (1.2 -3.4) L 03/26/21 06:40 Lymphocytes (Manua l) 3 % 03/26/21 06:40 Monocytes (Manual) 2.0 % 03/26/21 06:40 Absolute Monocytes 0.2 10^3/cmm (0.1 -0.6) 03/26/21 06:40 Eosinophils (Manua l) 0 % 03/26/21 06:40 Absolute Eosinophi ls 0.0 10^3/cmm (0.0 -0.7) 03/26/21 06:40 Basophils (Manual) 0.0 % 03/26/21 06:40 Absolute Basophils 0.0 10^3/cmm (0.0 -0.2) 03/26/21 06:40 Metamyelocytes 1.0 % 03/26/21 06:40 Nucleated RBCs # 0.0 /100WBC 03/28/21 07:16 Platelet Estimate Decreased (Araseli l) 03/26/21 06:40 ESR 40 mm/hr (0-10) H 03/28/21 07:16 Fibrinogen 376 mg/dL (174-49 8) 03/21/21 13:00 D-Dimer 1.60 ug/mIFEU (0- 0.59) H 03/27/21 06:40 Specimen Type Arterial 03/28/21 04:35 Sample Site Brachial, left 03/28/21 04:35 ABG pH 7.54 (7.35-7.45) H 03/28/21 04:35 ABG pCO2 34.7 mmHg (35-45) L 03/28/21 04:35 ABG pO2 58.5 mmHg (80.0-1 00.0) L 03/28/21 04:35 ABG HCO3 29.7 mmol/L (22-2 6) H 03/28/21 04:35 ABG O2 Saturation 92.2 03/28/21 04:35 ABG Base Excess 7.1 mmol/L (-2.0- 2.0) H 03/28/21 04:35 Bubba Test Pos 03/28/21 04:35 A-a O2 Gradient 44.2 mmHg (5-10) H 03/28/21 04:35 Hematocrit 46.4 % (42-52) 03/28/21 04:35 Hgb O2 Saturation 90.9 % (95-100) L 03/28/21 04:35 Carboxyhemoglobin 0.7 %THgb (0.4-20 .1) 03/28/21 04:35 Methemoglobin 0.7 % (0.4-1.5) 03/28/21 04:35 Total Hemoglobin 15.1 g/dL (14-18) 03/28/21 04:35 Sodium 145.0 mmol/L (131 -143) H 03/28/21 04:35 Potassium 4.5 mmol/L (3.5-5 .0) 03/28/21 04:35 Glucose 216.0 mg/dL (70-1 15) H 03/28/21 04:35 Ionized Calcium 1.5 mmol/L (1.1-1 .4) H 03/28/21 04:35 O2 Delivery Device Nc 03/28/21 04:35 O2 Liters/Min 40.0 % 03/28/21 04:35 FiO2 62.0 % 03/28/21 04:35 Learning Administrator ID Bd 03/28/21 04:35 Sodium 143 mmol/L (136-1 45) 03/28/21 07:16 Potassium 4.8 mmol/L (3.5-5 .1) 03/28/21 07:16 Chloride 108 mmol/L (98-10 7) H 03/28/21 07:16 Carbon Dioxide 26 mmol/L (22-29) 03/28/21 07:16 Anion Gap 13.8 (5-19) 03/28/21 07:16 BUN 34 mg/dL (8-23) H 03/28/21 07:16 Creatinine 0.8 mg/dL (0.7-1. 2) 03/28/21 07:16 GFR Calculation 98.6 mL/min (90-1 30) 03/28/21 07:16 Glucose 211 mg/dL (65-115 ) H 03/28/21 07:16 Estimat Average Gl ucose 126 03/25/21 05:57 Hemoglobin A1c 6.0 % (4.0-6.0) 03/25/21 05:57 Calculated Osmolal ity 310 mOsm/kg (285- 295) H 03/28/21 07:16 Lactic Acid 1.5 mmol/L (0.5-2 .2) 03/21/21 13:00 Calcium 10.2 mg/dL (8.5-1 0.5) 03/28/21 07:16 Phosphorus 3.0 mg/dL (2.5-4. 5) 03/22/21 06:38 Magnesium 2.1 mg/dL (1.7-2. 3) 03/22/21 06:38 Iron 66 ug/dL (59-158) 03/24/21 05:53 TIBC 133 mcg/dl 03/24/21 05:53 % Saturation 49.6 % (20-50) 03/24/21 05:53 Unsat Iron Binding 67 ug/dL (112-347 ) L 03/24/21 05:53 Ferritin 1235 ng/mL (30-40 0) H 03/29/21 05:40 Total Bilirubin 0.6 mg/dL (0.15-1 .2) 03/28/21 07:16 AST 26 U/L (0-40) 03/28/21 07:16 ALT 54 U/L (0-41) H 03/28/21 07:16 Alkaline Phosphata se 60 IU/L (40-130) 03/28/21 07:16 Creatine Kinase 119 U/L (39-308) 03/29/21 05:40 C-Reactive Protein 50.1 mg/L (0.0-4. 9) H 03/27/21 06:40 NT-Pro-B Natriuret Pep 1321 pg/mL (0-125 ) H 03/29/21 05:40 Total Protein 6.1 g/dL (6.6-8.7 ) L 03/28/21 07:16 Albumin 2.6 g/dL (3.5-5.2 ) L 03/28/21 07:16 Globulin 3.5 g/dL (1.3-4.6 ) 03/28/21 07:16 Lipase 32 U/L (13-60) 03/21/21 13:00 Procalcitonin 1.23 ng/mL (0-0.5 ) H 03/27/21 06:40 TSH 0.07 uIU/mL (0.27 -4.20) L 03/24/21 05:53 Free T4 1.47 ng/dL (0.82- 1.77) 03/24/21 05:53 Free T3 2.9 PG/ML (2.0-4. 4) 03/24/21 05:53 HIV 1&2 Ab & HIV 1 Ag Non-reactive (No n-Reactiv) 03/28/21 19:58 HIV 1&2 Antibody Non-reactive (No n-Reactiv) 03/28/21 19:58 Impressions Gallbladder Ultrasound 03/21/21 14:19 IMPRESSION: 1. Diffuse fatty infiltration of the liver. 2. Normal gallbladder. Normal common bile duct. 3. No hydronephrosis in right kidney. Abdomen X-Ray 03/25/21 04:01 IMPRESSION: No acute abdominal abdomen abnormality. Chest CTA 03/27/21 09:00 IMPRESSION: 1. Proximal main pulmonary arteries are normal. Distal pulmonary arteries not well evaluated due to artifact. No evidence of proximal pulmonary embolus. 2. Moderate diffuse bilateral subpleural hazy groundglass infiltrates compatible with Covid 19 pneumonia. No focal consolidation or pleural fluid. 3. A few reactive anterior mediastinal, peribronchial, AP window lymph nodes. 4. Small esophageal hiatal hernia. 5. No other significant findings. Lumbar Spine CT 03/27/21 12:26 IMPRESSION: 1. No acute lumbar spine findings. 2. No evidence of discitis/osteomyelitis. 3. No evidence of epidural abscess. Spinal canal is patent. Thoracic Spine CT 03/27/21 12:26 IMPRESSION: 1. No evidence of discitis or osteomyelitis. 2. No evidence of epidural abscess. Spinal canal is patent. 3. Partially visualized pulmonary infiltrates. Face CT 03/28/21 15:52 IMPRESSION: 1. No acute findings. 2. No soft tissue abscess identified. Radiation Dose CTDIVOL = (mGy): DLP = 885.89 (mGy-cm) Neck CT 03/28/21 15:52 IMPRESSION: 1. No soft tissue abscess in the neck. 2. Ground-glass lesions in the upper lungs. Features consistent with atypical pneumonia such as COVID-19 pneumonia. Radiation Dose CTDIVOL = (mGy): DLP = 512.5 (mGy-cm) Chest X-Ray 03/29/21 06:00 IMPRESSION: No significant change in bilateral pulmonary infiltrates. A&P Assessment and plan (1) Septicemia: Persistent positive blood culture for staph aureus between 03 25-03 27. MSSA per susceptibility results Antibiotics have thus far included Zosyn 03/25 to 03/28 , vancomycin 03/26-03/28 D/c Zosyn and vancomycin, change abx treatment to cefazolin to 2g iv q8h Source is unclear at this point, imaging of the back including CT of the thoracolumbar spine does not show any acute epidural abscess or sites of discitis. A TTE was unable to be completed due to tachycardia. No dental abscess noted on CT of the face or neck. Check daily cultures until clearance is demonstrated. Patient does have some skin excoriation over the abdomen which may be a potential entry. Ultimately patient pneumonia on his chest x-ray may be a component of Staphylococcus pneumonia on top of Covid pneumonitis. Will follow Status: Acute (2) Cerebral palsy: Status: Acute Qualifiers: Cerebral palsy type: unspecified type Qualified Code(s): G80.9 - Cerebral palsy, unspecified (3) ARDS (adult respiratory distress syndrome): Status: Acute (4) COVID-19: Management per hospitalist team Status: Acute Consult Attestations Medical Necessity Statement: per admitting team Coding Level of Care Code Acute Hydro Generation Supervisor for [facility] Fwd Diagnoses Septicemia A41.9 Cerebral palsy G80.9 Cerebral palsy type: unspecified type ARDS (adult respiratory distress syndrome) J80 COVID-19 U07.1
[2021-03-29] VITALS (12 sets, daily range): BP systolic 118–175; BP diastolic 68–96; PULSE 61–132; RESP 17–40; TEMP 36.6–37.2; O2SAT 86–97
[2021-03-29] MEDS: dexamethasone 4 mg/mL INJ 6 MG IVP (02:39)
[2021-03-29] MEDS: ipratropium 0.5 mg/2.5 mL Neb INHALATION ×3 (04:35→17:40)
[2021-03-29] MEDS: enoxaparin 80 mg/0.8 mL Syringe 70 MG SUBCUT ×2 (05:54→20:15)
--- NOTE | 2021-03-29 06:00 | XRR_ITS ---
PROCEDURE INFORMATION: Exam: XR Chest Exam date and time: 03/29/2021 6:00 AM Age: 61 years old Clinical indication: Shortness of breath; Additional info: Covid TECHNIQUE: Imaging protocol: XR of the chest. Views: 1 view. COMPARISON: CR XR chest 1V portable [id number] 03/27/2021 5:30 AM FINDINGS: Lungs: Bilateral interstitial pulmonary infiltrates are present especially in the periphery of the right lung and in the left base. These are unchanged. Pleural spaces: Unremarkable. No pleural effusion. No pneumothorax. Heart/Mediastinum: Unremarkable. No cardiomegaly. Bones/joints: Unremarkable. XR/XR chest 1V portable [id number] IMPRESSION: No significant change in bilateral pulmonary infiltrates.
[2021-03-29 07:44] LABS: Creatine Phosphokinase 119 U/L (39-308); NT Pro B Type Natriuretic Pept 1321 pg/mL (0-125)
[2021-03-29 08:04] LABS: Ferritin 1235 ng/mL (30-400)
[2021-03-29] MEDS: levalbuterol 0.63 mg/3 mL Neb INHALATION ×2 (09:01→17:40)
[2021-03-29] MEDS: budesonide 0.5 mg/2 mL Neb INHALATION (09:01)
[2021-03-29] MEDS: cyclobenzaprine 10 mg Tablet PO ×2 (10:06→20:14)
[2021-03-29] MEDS: benzonatate 100 mg Capsule PO ×3 (10:06→21:45)
[2021-03-29] MEDS: azithromycin 250 mg Tablet 500 MG PO (10:06)
[2021-03-29] MEDS: zinc gluconate 50 mg Tablet PO (10:06)
[2021-03-29] MEDS: ascorbic acid 500 mg Tablet 1000 MG PO ×2 (10:06→20:15)
[2021-03-29] MEDS: ferrous gluconate 324 mg Tablet PO ×2 (10:06→20:14)
[2021-03-29] MEDS: chlorhexidine gluconate 0.12% Btl 473 mL 15 ML MUCOUS MEM (13:05)
[2021-03-29 13:37] LABS: Basophils # 0.1 10^3/uL (0.0-0.1); Basophils % 0.7 %; Hematocrit 47.1 % (42.0-52.0); Hemoglobin 15.2 g/dL (11.7-16.6); Lymphocytes # 1.2 10^3/uL (0.8-4.8); Lymphocytes % 7.5 %; Mean Corpuscular HGB Conc 32.3 g/dL (30.0-36.0); Mean Corpuscular Hemoglobin 27.8 pg (28.0-34.0); Mean Corpuscular Volume 86.3 fL (80-94); Mean Platelet Volume 12.7 fL (7.4-10.4); Monocytes # 1.1 10^3/uL (0.2-0.9); Monocytes % 6.9 %; Neutrophils # 12.91 10^3/uL (1.8-7.7); Neutrophils % 80.4 %; Nucleated Red Blood Cells % 0 %; Platelet Count 271 10^3/cmm (130-400); Red Blood Count 5.46 10^6/uL (4.1-5.3); Red Cell Distribution Width 13.3 % (12.1-15.1); White Blood Count 16.1 10^3/uL (4.0-10.0)
--- NOTE | 2021-03-29 13:39 | P.PN_ITS ---
Subjective Subjective: Interval history: No acute events overnight. Patient has remained hemodynamically stable. On exam patient is monitored overnight has been in 60s to 80s but today morning some on the low-dose pain medication and held it went up to 130s. Currently is on 45 L 70% saturating 92%. Has remained afebrile for last 48 hours. Urine output in last 24 hours more than 2 L with a net negative of 1 L Medications: Reviewed: Yes Vitals/I&O/Wt Last Vital Signs Temp 97.8 F 03/29/21 08:00 Pulse 132 H 03/29/21 09:02 Resp 18 03/29/21 09:02 BP 175/82 03/29/21 08:00 Pulse Ox 92 03/29/21 09:02 03/28/21 03/29/21 03/29/21 22:59 06:59 14:59 Intake Total 540 / 690 160 / 850 Output Total 200 / 200 1775 / 1975 Balance 340 / 490 -1615 / -1125 Physical Exam Narrative: EXAM NARRATIVE: General: No acute distress, AO x 2, following simple commands HEENT:, PERRLA, pupils bilaterally equal and reactive Chest: Normal vesicular breath sounds, bilateral rhonchi present all over the lung amaya, equal good air entry bilaterally CVS: S1-S2 regular, no murmurs, no tachycardia, no gallops, no rubs Abdomen: Soft, nontender, no organomegaly, bowel sounds present Neuro: No focal deficits, no facial deformity, AO x3, power 5/5 in all limbs Urinary Catheter Management^: Rose: Cath Placed During This Visit: yes Reason for Continuing Indwelling Catheter: Accurate Measurement of Urinary Output in Critically Ill Patients Urinary Catheter Date of Insertion: 03/21/21 Urinary Catheter Time of Insertion: 23:10 Data : 03/29/21 12:44 03/28/21 07:16 Micro: Microbiology 03/29/21 12:46 Blood Culture - Preliminary Blood SPECIMEN COLLECTED 03/29/21 12:44 Blood Culture - Preliminary Blood SPECIMEN COLLECTED 03/27/21 13:48 Blood Culture - Preliminary Blood Staphylococcus aureus 03/27/21 13:42 Blood Culture - Preliminary Blood Staphylococcus aureus 03/25/21 14:07 Blood Culture - Final Blood Staphylococcus aureus 03/25/21 14:07 Blood Culture - Final Blood Staphylococcus aureus 03/28/21 19:54 Blood Culture - Preliminary Blood SPECIMEN COLLECTED 03/28/21 19:58 Blood Culture - Preliminary Blood SPECIMEN COLLECTED 03/26/21 06:45 Blood Culture - Preliminary Blood Staphylococcus aureus 03/26/21 06:40 Blood Culture - Preliminary Blood Staphylococcus aureus A&P Assessment and plan (1) Septicemia: Status: Acute (2) Cerebral palsy: Status: Acute Qualifiers: Cerebral palsy type: unspecified type Qualified Code(s): G80.9 - Cerebral palsy, unspecified (3) ARDS (adult respiratory distress syndrome): Status: Acute (4) COVID-19: Management per hospitalist team Status: Acute Additional A&P Information Sepsis: Staph bacteremia: Persistently MSSA positive. Repeat blood cultures from March 28 preliminary negative. Unknown source for now. Lumbar thoracic CT scan negative for discitis or vertebral abscess, neck and facial CT negative for any source of infection. Echocardiogram pending as patient's heart rate is on the higher side. Appreciate ID recommendations. For now continue with cefazolin 2 g IV every 8 hourly. If patient continues to remain blood culture positive will have to add a second agent most likely daptomycin. Keep mean arterial pressure over 65. Severe ARDS secondary to COVID-19: Severe disease. PF ratio on ABG 94. Oxygen supplementation keeping saturation over 90%. Continue with remdesivir to finish a 5-day course. Last dose on March 29. Dexamethasone 6 mg IV daily. Vitamin C, zinc. Tessalon Perles, Robitussin as needed. Continue with ipratropium, Xopenex every 4 hours, budesonide twice daily. Switching from duo nebs to Xopenex because of tachycardia. Pulmonary toilet with incentive spirometry and flutter valve as possible and to tolerated. Diet changes as per swallow evaluation. D-dimer elevated. Continue with full dose anticoagulation. Monitor hemoglobin. Given hypoxia we will try to keep patient on soap drier tender side. Continue with diuresis. Patient still persistently positive. Net negative in last 24 hours. Repeat Lasix 40 mg IV stat. Strict input output charting, daily weights. Continue to monitor inflammatory markers including ferritin, CRP, ESR, D-dimer. Blood work including inflammatory markers and procalcitonin pending Atrial fibrillation: Rate still elevated. Continue metoprolol 75 mg twice daily. Add Cardizem drip titrating for heart rate less than 100 and systolic blood pressure of more than 100 mmHg. Full dose Lovenox will also help with anticoagulation. Echocardiogram once heart rate less than 100. Rhabdomyolysis: Most likely secondary to dehydration and hypoxia on admission. Resolved. Continue to check CPK daily. Hypertension: No history of hypertension. Goal blood pressure less than 140/90 mmHg. Blood pressures better. Continue metoprolol 75 mg twice daily. Hold amlodipine. Cardizem possibly as above. Coffee-ground emesis: Hemoglobin stable. Protonix 40 mg twice daily. Continue to monitor hemoglobin. Oral iron supplementation. CODE STATUS: DNR/DNI. DVT prophylaxis: Full dose Lovenox. Dysphagia 2 diet. Discussed patient's health in detail with his brother Gino. He says mother Teresa is back in the ER is not cold and not able to make any decisions. We discussed the fact that patient has MSSA bacteremia, severe ARDS due to COVID-19 pneumonia on setting of baseline cerebral palsy. Gino tells me that there is a family discussed his CODE STATUS yesterday with mother and they would like him to be DNR/DNI. CODE STATUS change in the system. Discharge planning: Patient's caregiver who is the mother is also suffering from Covid. She is requesting patient to be placed at SNF for short-term while she recovers. Awaiting safe placement. Attestations Medical Necessity Statement*: Requires further hospitalization for persistent MSSA bacteremia, severe hypoxic respiratory failure/ARDS secondary to COVID-19 pneumonia, atrial fibrillation with rapid ventricular response while patient is high flow dependent. Critical Care Time: The high probability of a clinically significant, sudden or life threatening deterioration of the patient's [cardiology, respiratory, ID] system(s) required my full and direct attention, intervention and personal management. The critical care time is as shown. This time is in addition to time spent performing any reported procedures but includes the following: [x] Data and vital sign review and interpretation [x] Patient assessment, examination and intervention [x] Documentation [x] Medication orders and management Critical Care Time (min): 90 Coding Level of Care Code Acute Senior Maintenance Machinist for g Fwd Diagnoses Septicemia A41.9 Cerebral palsy G80.9 Cerebral palsy type: unspecified type ARDS (adult respiratory distress syndrome) J80 COVID-19 U07.1
[2021-03-29] MEDS: metoprolol tartrate 50 mg Tablet 75 MG PO ×2 (13:55→21:45)
[2021-03-29] MEDS: pantoprazole 40 mg SDV IVP (14:11)
[2021-03-29] MEDS: FUROsemide 10 mg/mL SDV 4mL 40 MG IVP (14:12)
[2021-03-29 14:14] LABS: Procalcitonin 0.47 ng/mL (0-0.5)
[2021-03-29] MEDS: remdesivir 100 MG in sodium chloride 0.9% (100 ml) 100 ML IV (21:44)
[2021-03-30] VITALS (16 sets, daily range): BP systolic 122–160; BP diastolic 64–89; PULSE 80–116; RESP 16–34; TEMP 36.3–37.2; O2SAT 90–96
[2021-03-30] MEDS: levalbuterol 0.63 mg/3 mL Neb INHALATION ×2 (01:35→20:55)
[2021-03-30] MEDS: ipratropium 0.5 mg/2.5 mL Neb INHALATION ×5 (01:35→20:56)
[2021-03-30] MEDS: pantoprazole 40 mg SDV IVP ×2 (03:03→17:27)
[2021-03-30] MEDS: dexamethasone 4 mg/mL INJ 6 MG IVP (03:04)
[2021-03-30] MEDS: lanolin oint 7 gm 1 APPLIC TOPICAL (03:39)
[2021-03-30] MEDS: enoxaparin 80 mg/0.8 mL Syringe 70 MG SUBCUT ×2 (05:22→17:28)
--- NOTE | 2021-03-30 05:45 | P.PN_ITS ---
Subjective Subjective: Interval history: Infectious disease progress note: Chart reviewed, plan discussed with hospitalist Blood cx thus far clear from 03/28 and 03/29, no acute interim events Medications: Reviewed: Yes Vitals/I&O/Wt Last Vital Signs Temp 98.0 F 03/30/21 04:00 Pulse 96 03/30/21 04:00 Resp 34 H 03/30/21 04:00 BP 160/83 03/30/21 04:00 Pulse Ox 96 03/30/21 04:00 03/29/21 03/29/21 03/30/21 14:59 22:59 06:59 Intake Total 480 / 480 160 / 640 60 / 700 Output Total 1300 / 1300 Balance 480 / 480 160 / 640 -1240 / -600 Physical Exam Urinary Catheter Management^: Rose: Cath Placed During This Visit: yes Reason for Continuing Indwelling Catheter: Accurate Measurement of Urinary Output in Critically Ill Patients Urinary Catheter Date of Insertion: 03/21/21 Urinary Catheter Time of Insertion: 23:10 Data : 03/29/21 12:44 03/28/21 07:16 Micro: Microbiology 03/28/21 19:54 Blood Culture - Preliminary Blood NEGATIVE TO DATE 03/28/21 19:58 Blood Culture - Preliminary Blood NEGATIVE TO DATE 03/29/21 12:46 Blood Culture - Preliminary Blood SPECIMEN COLLECTED 03/29/21 12:44 Blood Culture - Preliminary Blood SPECIMEN COLLECTED 03/27/21 13:48 Blood Culture - Preliminary Blood Staphylococcus aureus 03/27/21 13:42 Blood Culture - Preliminary Blood Staphylococcus aureus 03/25/21 14:07 Blood Culture - Final Blood Staphylococcus aureus 03/25/21 14:07 Blood Culture - Final Blood Staphylococcus aureus A&P Assessment and plan (1) Septicemia: Persistent positive blood culture for staph aureus between 03 25-03 27. MSSA per susceptibility results Antibiotics have thus far included Zosyn 03/25 to 03/28 , vancomycin 03/26-03/28 D/c Zosyn and vancomycin, change abx treatment to cefazolin to 2g iv q8h Source is unclear at this point, imaging of the back including CT of the thoracolumbar spine does not show any acute epidural abscess or sites of discitis. A TTE was unable to be completed due to tachycardia. No dental abscess noted on CT of the face or neck. Check daily cultures until clearance is demonstrated. Patient does have some skin excoriation over the abdomen which may be a potential entry. Ultimately patient pneumonia on his chest x-ray may be a component of Staphylococcus pneumonia on top of Covid pneumonitis. Will follow Status: Acute (2) Cerebral palsy: Status: Acute Qualifiers: Cerebral palsy type: unspecified type Qualified Code(s): G80.9 - Cer ebral palsy, unspecified (3) ARDS (adult respiratory distress syndrome): Status: Acute (4) COVID-19: Management per hospitalist team Status: Acute Attestations Medical Necessity Statement*: per admitting note Coding Level of Care Code Acute Choreography Director for [facility] Fwd Diagnoses Septicemia A41.9 Cerebral palsy G80.9 Cerebral palsy type: unspecified type ARDS (adult respiratory distress syndrome) J80 COVID-19 U07.1
--- NOTE | 2021-03-30 06:00 | XRR_ITS ---
PROCEDURE INFORMATION: Exam: XR Chest Exam date and time: 03/30/2021 6:00 AM Age: 61 years old Clinical indication: Dyspnea; Additional info: Covid TECHNIQUE: Imaging protocol: XR of the chest. Views: 1 view. Total images: 1 COMPARISON: CR (CHEST, ) 03/29/2021 6:47 AM FINDINGS: Lungs: Bilateral pulmonary opacities are again noted and appear unchanged. Pleural spaces: Unremarkable. No pleural effusion. No pneumothorax. Heart/Mediastinum: Unremarkable. No cardiomegaly. Bones/joints: Osseous structures are unchanged from the prior exam. XR/XR chest 1V portable [id number] IMPRESSION: Bilateral pulmonary opacities are again noted and appear unchanged.
[2021-03-30 06:15] LABS: ABG PCO2 30.6 mmHg (35-45); ABG PH Result 7.52 (7.35-7.45); Alveolar-Arterial Oxygen Gradi 42.3 mmHg (5-10); Arterial Blood Gas Hematocrit 50.4 % (42-52); Base Excess ABG 3.2 mmol/L (-2.0-2.0); Blood Gas Allen Test Pos; Blood Gas Sample Site Radial, left; Blood Gas Sample Type Arterial; Carboxyhemoglobin 0.6 %THgb (0.4-20.1); HCO3 ABG 25.1 mmol/L (22-26); HGB O2 Sat 91.8 % (95-100); Ionized Calcium Level - ABG 1.5 mmol/L (1.1-1.4); Methemoglobin 0.9 % (0.4-1.5); Oxygen Device NC; Oxygen Saturation ABG 93.2; PO2 ABG 63.2 mmHg (80.0-100.0); Potassium Level - ABG 4.5 mmol/L (3.5-5.0); Total Hemoglobin 16.4 g/dL (14-18)
[2021-03-30 06:59] LABS: Basophils # 0.2 10^3/uL (0.0-0.1); Basophils % 0.9 %; Hematocrit 48.2 % (42.0-52.0); Hemoglobin 15.3 g/dL (11.7-16.6); Lymphocytes # 1.2 10^3/uL (0.8-4.8); Lymphocytes % 6.5 %; Mean Corpuscular HGB Conc 31.7 g/dL (30.0-36.0); Mean Corpuscular Hemoglobin 27.1 pg (28.0-34.0); Mean Corpuscular Volume 85.3 fL (80-94); Mean Platelet Volume 12.9 fL (7.4-10.4); Monocytes % 5.3 %; Neutrophils # 15.19 10^3/uL (1.8-7.7); Neutrophils % 82.9 %; Nucleated Red Blood Cells % 0 %; Platelet Count 297 10^3/cmm (130-400); Red Blood Count 5.65 10^6/uL (4.1-5.3); Red Cell Distribution Width 13.2 % (12.1-15.1); White Blood Count 18.3 10^3/uL (4.0-10.0)
[2021-03-30 07:28] LABS: Alanine Aminotransferase 27 U/L (0-41); Albumin Level 2.7 g/dL (3.5-5.2); Alkaline Phosphatase 58 IU/L (40-130); Anion Gap 13.4 (5-19); Aspartate Amino Transferase 20 U/L (0-40); Blood Urea Nitrogen 35 mg/dL (8-23); Calcium 10.2 mg/dL (8.5-10.5); Carbon Dioxide 24 mmol/L (22-29); Chloride 100 mmol/L (98-107); Globulin 3.7 g/dL (1.3-4.6); Glucose 252 mg/dL (65-115); Osmolality Calculated 293 mOsm/kg (285-295); Potassium 4.4 mmol/L (3.5-5.1); Sodium 133 mmol/L (136-145); Total Bilirubin 0.7 mg/dL (0.15-1.2); Total Protein 6.4 g/dL (6.6-8.7)
[2021-03-30 07:31] LABS: D Dimer 0.59 ug/mIFEU (0-0.59)
[2021-03-30 07:38] LABS: C Reactive Protein 6.7 mg/L (0.0-4.9); Creatine Phosphokinase 110 U/L (39-308); NT Pro B Type Natriuretic Pept 930 pg/mL (0-125)
[2021-03-30 07:56] LABS: Ferritin 1501 ng/mL (30-400)
[2021-03-30 08:25] LABS: Erythrocyte Sedimentation Rate 37 mm/hr (0-10)
[2021-03-30] MEDS: metoprolol tartrate 50 mg Tablet 75 MG PO (08:46)
[2021-03-30] MEDS: cyclobenzaprine 10 mg Tablet PO ×2 (08:46→17:28)
[2021-03-30] MEDS: azithromycin 250 mg Tablet 500 MG PO (08:46)
[2021-03-30] MEDS: ascorbic acid 500 mg Tablet 1000 MG PO ×2 (08:46→21:45)
[2021-03-30] MEDS: ferrous gluconate 324 mg Tablet PO ×2 (08:46→17:28)
[2021-03-30] MEDS: zinc gluconate 50 mg Tablet PO (08:46)
[2021-03-30] MEDS: benzonatate 100 mg Capsule PO ×3 (08:47→21:46)
[2021-03-30] MEDS: chlorhexidine gluconate 0.12% Btl 473 mL 15 ML MUCOUS MEM ×2 (08:52→17:28)
[2021-03-30] MEDS: budesonide 0.5 mg/2 mL Neb INHALATION ×2 (09:39→20:56)
[2021-03-30] MEDS: bisacodyl 5 mg Tablet 10 MG PO (10:38)
[2021-03-30] MEDS: metoprolol tartrate 25 mg Tablet PO (10:46)
--- NOTE | 2021-03-30 12:39 | DCPLANNER ---
IMM completed 03/30/21 @ 12:38pm over the phone with pt's mom, Teresa.
--- NOTE | 2021-03-30 14:19 | PM.PN ---
Subjective Subjective: Interval history: No acute events overnight. Patient has remained hemodynamically stable. On exam patient is monitored overnight has been in 60s to 80s but today morning some on the low-dose pain medication and held it went up to 130s. Currently is on 45 L 70% saturating 92%. Has remained afebrile for last 48 hours. Urine output in last 24 hours more than 2 L with a net negative of 1 L Medications: Reviewed: Yes Vitals/I&O/Wt Last Vital Signs Temp 98.9 F 03/30/21 08:00 Pulse 112 H 03/30/21 09:40 Resp 17 03/30/21 09:40 BP 126/81 03/30/21 08:00 Pulse Ox 92 03/30/21 09:40 03/29/21 03/30/21 03/30/21 22:59 06:59 14:59 Intake Total 160 / 640 60 / 700 300 / 300 Output Total 1300 / 1300 Balance 160 / 640 -1240 / -600 300 / 300 Physical Exam Narrative: EXAM NARRATIVE: General: No acute distress, AO x 2, following simple commands HEENT:, PERRLA, pupils bilaterally equal and reactive Chest: Normal vesicular breath sounds, bilateral rhonchi present all over the lung amaya, equal good air entry bilaterally CVS: S1-S2 regular, no murmurs, no tachycardia, no gallops, no rubs Abdomen: Soft, nontender, no organomegaly, bowel sounds present Neuro: No focal deficits, no facial deformity, AO x3, power 5/5 in all limbs Urinary Catheter Management^: Rose: Cath Placed During This Visit: yes Reason for Continuing Indwelling Catheter: Accurate Measurement of Urinary Output in Critically Ill Patients Urinary Catheter Date of Insertion: 03/21/21 Urinary Catheter Time of Insertion: 23:10 Data : 03/30/21 06:15 03/30/21 06:15 Micro: Microbiology 03/29/21 12:46 Blood Culture - Preliminary Blood NEGATIVE TO DATE 03/29/21 12:44 Blood Culture - Preliminary Blood NEGATIVE TO DATE 03/27/21 13:48 Blood Culture - Final Blood Staphylococcus aureus 03/27/21 13:42 Blood Culture - Final Blood Staphylococcus aureus 03/26/21 06:40 Blood Culture - Final Blood Staphylococcus aureus 03/26/21 06:45 Blood Culture - Final Blood Staphylococcus aureus 03/28/21 19:54 Blood Culture - Preliminary Blood NEGATIVE TO DATE 03/28/21 19:58 Blood Culture - Preliminary Blood NEGATIVE TO DATE 03/25/21 14:07 Blood Culture - Final Blood Staphylococcus aureus 03/25/21 14:07 Blood Culture - Final Blood Staphylococcus aureus A&P Assessment and plan (1) Septicemia: Status: Acute (2) ARDS (adult respiratory distress syndrome): Status: Acute (3) COVID-19: Management per hospitalist team Status: Acute (4) Staphylococcus aureus bacteremia: Status: Acute (5) Atrial fibrillation: Status: Acute (6) Benign essential hypertension with target blood pressure below 140/90: Status: Acute (7) Rhabdomyolysis due to COVID-19: Status: Acute (8) Cerebral palsy: Status: Acute Qualifiers: Cerebral palsy type: unspecified type Qualified Code(s): G80.9 - Cerebral palsy, unspecified Additional A&P Information Sepsis: Staph bacteremia: Persistently MSSA positive. Repeat blood cultures from March 28 preliminary negative. Unknown source for now. Lumbar thoracic CT scan negative for discitis or vertebral abscess, neck and facial CT negative for any source of infection. If repeat blood cultures also come back positive will have to scan belly for further evaluation. Echocardiogram done showing EF 60%, grade 1 diastolic dysfunction, LVH, mild thickened mitral valve. Will confirm with cardiology regarding infective endocarditis. Appreciate ID recommendations. For now continue with cefazolin 2 g IV every 8 hourly. If patient continues to remain blood culture positive will have to add a second agent most likely daptomycin. Keep mean arterial pressure over 65. Severe ARDS secondary to COVID-19: Severe disease. Oxygen supplementation keeping saturation over 90%. Continue with remdesivir to finish a 5-day course. Last dose on March 29. Dexamethasone 6 mg IV daily. Vitamin C, zinc. Tessalon Perles, Robitussin as needed. Continue with ipratropium, Xopenex every 4 hours, budesonide twice daily. Switching from duo nebs to Xopenex because of tachycardia. Pulmonary toilet with incentive spirometry and flutter valve as possible and to tolerated. Diet changes as per swallow evaluation. D-dimer elevated. Continue with full dose anticoagulation. Monitor hemoglobin. Given hypoxia we will try to keep patient on cloth drier side. Continue with diuresis. Patient still persistently positive. Net negative in last 24 hours. Repeat Lasix 40 mg IV stat. Strict input output charting, daily weights. Continue to monitor inflammatory markers including ferritin, CRP, ESR, D-dimer. Blood work including inflammatory markers and procalcitonin pending Atrial fibrillation: Rate still elevated. Increase metoprolol to 100 mg twice daily. Full dose Lovenox will also help with anticoagulation. Echocardiogram once heart rate less than 100. Rhabdomyolysis: Most likely secondary to dehydration and hypoxia on admission. Resolved. Continue to check CPK daily. Hypertension: No history of hypertension. Goal blood pressure less than 140/90 mmHg. Blood pressures better. Continue metoprolol 100 mg twice daily CODE STATUS: DNR/DNI. DVT prophylaxis: Full dose Lovenox. Dysphagia 2 diet. Discussed patient's health in detail with his brother Gino. He says mother Teresa is back in the ER is not cold and not able to make any decisions. We discussed the fact that patient has MSSA bacteremia, severe ARDS due to COVID-19 pneumonia on setting of baseline cerebral palsy. Gino tells me that there is a family discussed his CODE STATUS yesterday with mother and they would like him to be DNR/DNI. CODE STATUS change in the system. Discharge planning: Patient's caregiver who is the mother is also suffering from Covid. She is requesting patient to be placed at SNF for short-term while she recovers. Awaiting safe placement. Patient will need level 2. Attestations Medical Necessity Statement*: Requires further hospitalization for management of MSSA bacteremia, severe ARDS secondary COVID-19 pneumonia, cerebral palsy Time Spent in Patient Care: Greater than 35 minutes (>than 50% of time spent in counselling and/or direct pt care on unit). Coding Level of Care Code Acute Slide Fastener Repairer for [facility] Fwd Diagnoses Septicemia A41.9 ARDS (adult respiratory distress syndrome) J80 COVID-19 U07.1 Staphylococcus aureus bacteremia R78.81; B95.61 Atrial fibrillation I48.91 Benign essential hypertension with target blood pressure below 140/90 I10 Rhabdomyolysis due to COVID-19 U07.1; M62.82 Cerebral palsy G80.9 Cerebral palsy type: unspecified type
[2021-03-30] MEDS: metoprolol tartrate 50 mg Tablet 100 MG PO (21:46)
[2021-03-31] VITALS (13 sets, daily range): BP systolic 125–135; BP diastolic 79–87; PULSE 77–93; RESP 18–28; TEMP 36.6–37.3; O2SAT 90–93
[2021-03-31] MEDS: ipratropium 0.5 mg/2.5 mL Neb INHALATION ×6 (00:40→19:53)
[2021-03-31] MEDS: pantoprazole 40 mg SDV IVP ×2 (02:05→17:32)
[2021-03-31] MEDS: dexamethasone 4 mg/mL INJ 6 MG IVP (02:05)
[2021-03-31] MEDS: enoxaparin 80 mg/0.8 mL Syringe 70 MG SUBCUT ×2 (05:36→17:31)
[2021-03-31 06:17] LABS: Basophils % 0.1 %; Eosinophils % 0.1 %; Lymphocytes # 1.3 10^3/uL (0.8-4.8); Lymphocytes % 7.5 %; Mean Corpuscular HGB Conc 33.3 g/dL (30.0-36.0); Mean Platelet Volume 12.7 fL (7.4-10.4); Monocytes % 5.6 %; Neutrophils # 14.01 10^3/uL (1.8-7.7); Nucleated Red Blood Cells % 0 %; Platelet Count 300 10^3/cmm (130-400); Red Blood Count 5.36 10^6/uL (4.1-5.3); Red Cell Distribution Width 12.9 % (12.1-15.1); White Blood Count 17.2 10^3/uL (4.0-10.0)
[2021-03-31 06:44] LABS: Alanine Aminotransferase 20 U/L (0-41); Albumin Level 2.5 g/dL (3.5-5.2); Alkaline Phosphatase 58 IU/L (40-130); Anion Gap 11.6 (5-19); Aspartate Amino Transferase 18 U/L (0-40); Blood Urea Nitrogen 29 mg/dL (8-23); Calcium 9.8 mg/dL (8.5-10.5); Carbon Dioxide 24 mmol/L (22-29); Chloride 103 mmol/L (98-107); Globulin 3.3 g/dL (1.3-4.6); Glomerular Filtration Rate 137.4 mL/min (90-130); Glucose 250 mg/dL (65-115); Osmolality Calculated 292 mOsm/kg (285-295); Potassium 4.6 mmol/L (3.5-5.1); Sodium 134 mmol/L (136-145); Total Bilirubin 0.8 mg/dL (0.15-1.2); Total Protein 5.8 g/dL (6.6-8.7)
[2021-03-31 06:50] LABS: C Reactive Protein 3.3 mg/L (0.0-4.9)
[2021-03-31 06:52] LABS: D Dimer 0.56 ug/mIFEU (0-0.59)
--- NOTE | 2021-03-31 07:33 | CT_ITS ---
WS: [id number] CT ABDOMEN PELVIS TECHNIQUE: Noncontrast CT of the abdomen and pelvis with coronal and sagittal reformatted images. CLINICAL INFORMATION: persistent staph bacteremia COMPARISON: CT 9 , CT chest March 27, 2021 DLP: 1483.[address] scans at [facility] use at least one of these dose optimization techniques: automat ed exposure control; mA and/or kV adjustment per patient size (includes targeted exams where dose is matched to clinical indication); or iterative reconstruction. FINDINGS: Patchy infiltrates in the lung bases compatible with COVID 19 pneumonia. Infiltrates in the lung base s appear more confluent compared to the prior CTA chest. Diffuse fatty infiltration of the liver. Small esophageal hiatal hernia. Normal noncontrast pancreas. Adrenal glands are normal. Left renal cyst measuring 2.6 cm. No hydronephrosis in either kidney. Normal caliber abdominal aorta. Rose catheter. No free fluid in the pelvis. Sigmoid diverticulosis. No evidence of acute diverticulitis. Moderate constipation transverse colon. Fat-containing left ingu inal hernia. No periaortic or pelvic lymphadenopathy. No inguinal lymphadenopathy. No evidence of sriram inable abscess or fluid collection. CT/CT abdomen pelvis wo con [id number] IMPRESSION: 1. Patchy subpleural infiltrates in the lung bases with more confluence compar ed to the recent CTA. 2. No evidence of drainable abscess or fluid collection in the abdomen or pelv is. 3. Diffuse fatty infiltration of the liver. 4. Small esophageal hiatal hernia. 5. No hydronephrosis in either kidney. 6. Moderate transverse colon constipation. 7. Rose catheter. 8. No acute findings in the abdomen or pelvis.
--- NOTE | 2021-03-31 07:34 | PM.PN ---
Subjective Subjective: Interval history: Infectious diseasee progress note CHart reviewed, plan discussed with hospitalist Curtis to have persistent psoitive blood cultures No acute interim events Vitals/I&O/Wt Last Vital Signs Temp 98.6 F 03/31/21 04:00 Pulse 84 03/31/21 04:59 Resp 22 H 03/31/21 04:46 BP 126/79 03/31/21 04:00 Pulse Ox 93 03/31/21 04:46 03/30/21 03/31/21 03/31/21 22:59 06:59 14:59 Intake Total 180 / 480 1020 / 1500 Output Total 1700 / 1700 1100 / 2800 Balance -1520 / -1220 -80 / -1300 Physical Exam Narrative: EXAM NARRATIVE: Patient not examined in view of COVID, to best optimize PPE. Exam per hospitalist note Urinary Catheter Management^: Rose: Cath Placed During This Visit: yes Reason for Continuing Indwelling Catheter: Accurate Measurement of Urinary Output in Critically Ill Patients Urinary Catheter Date of Insertion: 03/21/21 Urinary Catheter Time of Insertion: 23:10 Data : 04/03/21 07:10 04/03/21 07:10 Micro: Microbiology 03/28/21 19:58 Blood Culture - Preliminary Blood Gram positive cocci 03/29/21 12:46 Blood Culture - Preliminary Blood NEGATIVE TO DATE 03/29/21 12:44 Blood Culture - Preliminary Blood NEGATIVE TO DATE 03/27/21 13:48 Blood Culture - Final Blood Staphylococcus aureus 03/27/21 13:42 Blood Culture - Final Blood Staphylococcus aureus 03/26/21 06:40 Blood Culture - Final Blood Staphylococcus aureus 03/26/21 06:45 Blood Culture - Final Blood Staphylococcus aureus A&P Assessment and plan (1) Staphylococcus aureus bacteremia: Persistent MSSA bacteremia continue cefazolin 2g iv q8h Add ertapenem 1g iv q24h for salvage therapy for persistent MSSA bacteremia Anticipate using combination for 5-7 days, can discontinue ertapenem once cx clear for 48 hrs (Cefazolin plus Ertapenem for Persistent Methicillin-Susceptible Staphylococcus aureus Bacteremia Sebas Winston MD, reviewing Cynthia MCCLELLAND et al. Clin Infect Dis 2018Jul 26) Status: Acute Additional A&P Information COVID pneumonia: management per hospitalist Attestations Medical Necessity Statement*: persistent MSSA bacteremia, awaiting cx clearance Coding Level of Care Code Acute Academic Guidance Specialist for [facility] Fwd Diagnoses Staphylococcus aureus bacteremia R78.81; B95.61
[2021-03-31 07:59] LABS: Neutrophils % 86.7 %; Slide Review Slide Review Perform
[2021-03-31] MEDS: cyclobenzaprine 10 mg Tablet PO ×2 (09:22→17:31)
[2021-03-31] MEDS: zinc gluconate 50 mg Tablet PO (09:22)
[2021-03-31] MEDS: ascorbic acid 500 mg Tablet 1000 MG PO ×2 (09:22→17:31)
[2021-03-31] MEDS: metoprolol tartrate 50 mg Tablet 100 MG PO ×2 (09:22→22:09)
[2021-03-31] MEDS: benzonatate 100 mg Capsule PO (09:22)
[2021-03-31] MEDS: azithromycin 250 mg Tablet 500 MG PO (09:22)
[2021-03-31] MEDS: ferrous gluconate 324 mg Tablet PO ×2 (09:23→17:31)
[2021-03-31] MEDS: chlorhexidine gluconate 0.12% Btl 473 mL 15 ML MUCOUS MEM ×2 (09:23→17:32)
[2021-03-31] MEDS: budesonide 0.5 mg/2 mL Neb INHALATION ×2 (09:38→19:53)
--- NOTE | 2021-03-31 11:27 | P.PN_ITS ---
Subjective Subjective: Interval history: Guille denies any pain. He is eating when I entered the room. No choking with eating. Medications: Reviewed: Yes Vitals/I&O/Wt Last Vital Signs Temp 98.3 F 03/31/21 08:00 Pulse 93 03/31/21 09:30 Resp 22 H 03/31/21 09:30 BP 125/83 03/31/21 08:00 Pulse Ox 91 03/31/21 09:30 03/30/21 03/31/21 03/31/21 22:59 06:59 14:59 Intake Total 180 / 480 1020 / 1500 300 / 300 Output Total 1700 / 1700 1100 / 2800 Balance -1520 / -1220 -80 / -1300 300 / 300 Physical Exam Narrative: EXAM NARRATIVE: General exam no distress Neck no lymphadenopathy or thyromegaly Cardiovascular irregular, irregular rhythm without murmur Lungs coarse breath sounds at the bases Abdomen is soft with positive bowel sounds Extremities no cyanosis clubbing or edema Urinary Catheter Management^: Rose: Cath Placed During This Visit: yes Reason for Continuing Indwelling Catheter: Accurate Measurement of Urinary Output in Critically Ill Patients Urinary Catheter Date of Insertion: 03/21/21 Urinary Catheter Time of Insertion: 23:10 Data : 03/31/21 05:06 03/31/21 05:06 Micro: Microbiology 03/31/21 08:14 Blood Culture - Preliminary Blood SPECIMEN COLLECTED 03/31/21 08:00 Blood Culture - Preliminary Blood SPECIMEN COLLECTED 03/28/21 19:58 Blood Culture - Preliminary Blood Gram positive cocci 03/29/21 12:46 Blood Culture - Preliminary Blood NEGATIVE TO DATE 03/29/21 12:44 Blood Culture - Preliminary Blood NEGATIVE TO DATE 03/27/21 13:48 Blood Culture - Final Blood Staphylococcus aureus 03/27/21 13:42 Blood Culture - Final Blood Staphylococcus aureus 03/26/21 06:40 Blood Culture - Final Blood Staphylococcus aureus 03/26/21 06:45 Blood Culture - Final Blood Staphylococcus aureus A&P Assessment and plan (1) Septicemia: Persistent methicillin sensitive staph aureus bacteremia. Currently on cefazolin 2 g IV every 8 hours ID consult appreciated. Ertapenem added to clear from blood Will need IV antibiotics by PICC line, likely at nursing facility if recovers from ARDS to discharge. PICC line will be placed when bacteremia has resolved At this point I do not see need for continuation of a Zithromax. This will be discontinued. No plan for [facility] currently as this will not change current management of bacteremia. Status: Acute (2) COVID-19: Has completed remdesivir Has been on dexamethasone since 03/21, therefore completing 10 days of treatment. Will discontinue. Status: Acute (3) ARDS (adult respiratory distress syndrome): Wean oxygen as tolerated Continue pulmonary toilet Status: Acute (4) Atrial fibrillation: Full dose anticoagulation Continue metoprolol Status: Acute Additional A&P Information Hypertension. Continue metoprolol, Norvasc. Good control currently. Allow natural Lovenox for DVT prophylaxis Attestations Medical Necessity Statement*: Needs continued hospitalization for IV antibiotics secondary to bacteremia as well as high flow oxygen from COVID-19 pneumonia. Coding Level of Care Code Acute Senior Front End Developer for [facility] Diagnoses Septicemia A41.9 COVID-19 U07.1 ARDS (adult respiratory distress syndrome) J80 Atrial fibrillation I48.91
[2021-03-31] MEDS: ertapenem 1,000 MG in sodium chloride 0.9% (plus) 100 ML 200 MG IV (11:58)
--- NOTE | 2021-03-31 13:06 | PC.NUTR ---
Nutrition follow up: Recommend clarification of diet texture given difference between current diet order and most recent FINANCIAL COMPLIANCE OFFICER eval. Recommend to continue encouraging po intakes of meals/supplements and providing preferences as appropriate to optimize nutrition. Finally, recommend to obtain current weight, given po intakes 25% or less X [address] assessments for further details.
[2021-04-01] VITALS (15 sets, daily range): BP systolic 98–138; BP diastolic 55–85; PULSE 68–95; RESP 17–23; TEMP 36.4–37.2; O2SAT 89–98
[2021-04-01] MEDS: ipratropium 0.5 mg/2.5 mL Neb INHALATION ×4 (03:24→19:52)
[2021-04-01] MEDS: enoxaparin 80 mg/0.8 mL Syringe 70 MG SUBCUT (05:20)
[2021-04-01] MEDS: pantoprazole 40 mg SDV IVP ×2 (05:32→17:08)
--- NOTE | 2021-04-01 06:00 | XR_ITS ---
WS: [id number] Portable AP semiupright chest, 04/01/2021 Clinical Data: covid Comparison: Portable chest, 03/30/2021. Findings: The bilateral pulmonary opacities remain the same. The heart is normal. XR/XR chest 1V portable [id number] Impression: No change in bilateral pulmonary opacities.
[2021-04-01 07:19] LABS: Hematocrit 43.3 % (42.0-52.0); Mean Corpuscular HGB Conc 32.3 g/dL (30.0-36.0); Mean Corpuscular Hemoglobin 27.4 pg (28.0-34.0); Mean Corpuscular Volume 84.7 fL (80-94); Mean Platelet Volume 12.6 fL (7.4-10.4); Platelet Count 292 10^3/cmm (130-400); Red Blood Count 5.11 10^6/uL (4.1-5.3); Red Cell Distribution Width 12.8 % (12.1-15.1); White Blood Count 13.8 10^3/uL (4.0-10.0)
[2021-04-01 07:43] LABS: Alanine Aminotransferase 16 U/L (0-41); Albumin Level 2.5 g/dL (3.5-5.2); Alkaline Phosphatase 58 IU/L (40-130); Anion Gap 10.3 (5-19); Aspartate Amino Transferase 22 U/L (0-40); Blood Urea Nitrogen 29 mg/dL (8-23); Calcium 9.4 mg/dL (8.5-10.5); Carbon Dioxide 23 mmol/L (22-29); Chloride 101 mmol/L (98-107); Globulin 3.2 g/dL (1.3-4.6); Glomerular Filtration Rate 137.4 mL/min (90-130); Glucose 180 mg/dL (65-115); Osmolality Calculated 280 mOsm/kg (285-295); Potassium 4.3 mmol/L (3.5-5.1); Sodium 130 mmol/L (136-145); Total Bilirubin 0.7 mg/dL (0.15-1.2); Total Protein 5.7 g/dL (6.6-8.7)
[2021-04-01 08:02] LABS: Slide Review Slide Review Perform
[2021-04-01 08:05] LABS: Absolute Neutrophil 10.2 10^3/cmm (1.4-6.5); Absolute Segmented Neutrophil 9.2 10/cmm (1.6-7.1); Lymphocytes 14 %; Monocytes Absolute 1.1 10^3/cmm (0.1-0.6); Platelet Estimate Normal (Normal); Segmented Neutrophils 67 %; Total Cells Counted 100 (0-100)
[2021-04-01 08:06] LABS: Eosinophils 0 %; Lymphocytes Absolute 1.9 10^3/cmm (1.2-3.4)
--- NOTE | 2021-04-01 09:51 | PC.CHAP ---
Pastoral Care Encounter/Spiritual Assessment Type of Contact [] Declined solar energy technician visit [] Patient/Family/Request visit [] Outpatient visit [] Follow-up visit [] Physician referral [] Code/Alert [x] Routine visit [] Staff referral [] Actively dying [] Patient sleeping [] Family support [] [] Out of room [] Palliative care [] [] Receiving care in room [] Pre-surgical visit [] Trauma [] Long length of stay [] ICU visit [x] Other: covid Relational/Emotional Strength [] Patient feels connected with others/family/visitors/staff [] Distress [] Loneliness/isolation [] Abandonment Spirituality of Patient [] Person of Aurelia [] Attends Confucianist of their Aurelia [] Believes in Prayer [] Reads Bible or Worship materials [] There are Spiritual issues to be addressed Fuel Technician Interventions [x] Prayer [] Active listening [] Non-anxious presence [] Spiritual/emotional support [] Crisis/trauma care [] Spiritual counseling [] Bereavement support [] Provided bereavement packet [] Provided Bible/devotional materials [] Provided toy/stuffed animal, coloring book to patient or family member [] Provided Communion [] Anointing/[place] [] Salvation [x] Completed spiritual assessment [] Other: Impact on Illness or Injury [] Angry [] Fearful [] Anxious [] Often cries [] Exhaustion [] Unable to work [] Unable to attend rastafari [] Unable to walk/stand [] Unable to read [] Unable to drive [] Unable to eat/drink [] Unable to sleep [] Unable to be with family [] Patient intubated [] Other: Summary Time spent with patient
[2021-04-01] MEDS: budesonide 0.5 mg/2 mL Neb INHALATION ×2 (10:07→19:52)
[2021-04-01] MEDS: cyclobenzaprine 10 mg Tablet PO ×2 (10:38→17:07)
[2021-04-01] MEDS: ascorbic acid 500 mg Tablet 1000 MG PO ×2 (10:38→17:07)
[2021-04-01] MEDS: ferrous gluconate 324 mg Tablet PO ×2 (10:38→17:07)
[2021-04-01] MEDS: zinc gluconate 50 mg Tablet PO (10:38)
[2021-04-01] MEDS: metoprolol tartrate 50 mg Tablet 100 MG PO ×2 (10:38→22:24)
[2021-04-01] MEDS: chlorhexidine gluconate 0.12% Btl 473 mL 15 ML MUCOUS MEM ×2 (10:39→17:09)
[2021-04-01] MEDS: ertapenem 1,000 MG in sodium chloride 0.9% (plus) 100 ML 200 MG IV (10:40)
--- NOTE | 2021-04-01 12:18 | PM.PN ---
Subjective Subjective: Interval history: Guille reports no pain. Nursing states he is doing ok. Medications: Reviewed: Yes Vitals/I&O/Wt Last Vital Signs Temp 97.6 F 04/01/21 08:00 Pulse 94 04/01/21 10:14 Resp 17 04/01/21 10:08 BP 121/71 04/01/21 08:00 Pulse Ox 90 04/01/21 10:08 03/31/21 04/01/21 04/01/21 22:59 06:59 14:59 Intake Total 60 / 460 60 / 520 460 / 460 Output Total 975 / 975 Balance 60 / 460 -915 / -455 460 / 460 Physical Exam Narrative: EXAM NARRATIVE: General exam no distress Neck no lymphadenopathy or thyromegaly Cardiovascular irregular, irregular rhythm without murmur Lungs coarse breath sounds at the bases Abdomen is soft with positive bowel sounds Extremities no cyanosis clubbing or edema Urinary Catheter Management^: Rose: Cath Placed During This Visit: yes Reason for Continuing Indwelling Catheter: Accurate Measurement of Urinary Output in Critically Ill Patients Urinary Catheter Date of Insertion: 03/21/21 Urinary Catheter Time of Insertion: 23:10 Data : 04/01/21 06:47 04/01/21 06:47 Micro: Microbiology 03/29/21 12:46 Blood Culture - Preliminary Blood Staphylococcus aureus 03/31/21 08:14 Blood Culture - Preliminary Blood NEGATIVE TO DATE 03/31/21 08:00 Blood Culture - Preliminary Blood NEGATIVE TO DATE 03/28/21 19:58 Blood Culture - Preliminary Blood Staphylococcus aureus A&P Assessment and plan (1) Septicemia: Persistent methicillin sensitive staph aureus bacteremia. Currently on cefazolin 2 g IV every 8 hours ID consult appreciated. Ertapenem added to clear from blood Will need IV antibiotics by PICC line, likely at nursing facility if recovers from ARDS to discharge. PICC line will be placed when bacteremia has resolved Cultures from March 29 are growing organism. March 31 preliminary negative to date. We will repeat cultures tomorrow in case these turn positive. At this point I do not see need for continuation of a Zithromax. This will be discontinued. No plan for [facility] currently as this will not change current management of bacteremia. Status: Acute (2) COVID-19: Has completed remdesivir Has been on dexamethasone since 03/21, therefore completing 10 days of treatment. Will discontinue. Status: Acute (3) ARDS (adult respiratory distress syndrome): Wean oxygen as tolerated. He is currently on 60% Continue pulmonary toilet Status: Acute (4) Atrial fibrillation: Change anticoagulation to Eliquis Continue metoprolol Status: Acute Additional A&P Information Hypertension. Continue metoprolol, Norvasc. Good control currently. Hyponatremia. Lasix 20 mg IV x1. Allow natural Lovenox for DVT prophylaxis Attestations Medical Necessity Statement*: Needs continued hospitalization secondary to supportive care of COVID-19 pneumonia requiring high flow oxygen as well as methicillin sensitive staph aureus bacteremia. Coding Level of Care Code Acute Service Control Operator for [facility] Diagnoses Septicemia A41.9 COVID-19 U07.1 ARDS (adult respiratory distress syndrome) J80 Atrial fibrillation I48.91
[2021-04-01] MEDS: FUROsemide 10 mg/mL SDV 2mL 20 MG IVP (12:36)
--- NOTE | 2021-04-01 13:27 | PC.SOCIAL ---
IMM update IMM not updated as patient isn't expected to DC in the next 48 hours.
[2021-04-01] MEDS: apixaban 5 mg Tablet PO (22:16)
[2021-04-02] VITALS (17 sets, daily range): BP systolic 98–233; BP diastolic 60–79; PULSE 74–105; RESP 17–26; TEMP 36.5–38.2; O2SAT 4–93
[2021-04-02] MEDS: ipratropium 0.5 mg/2.5 mL Neb INHALATION ×4 (00:10→15:27)
[2021-04-02] MEDS: pantoprazole 40 mg SDV IVP ×2 (05:32→18:11)
[2021-04-02 07:43] LABS: Basophils % 0.1 %; Eosinophils % 0.2 %; Hematocrit 41.9 % (42.0-52.0); Hemoglobin 13.6 g/dL (11.7-16.6); Lymphocytes # 1.5 10^3/uL (0.8-4.8); Lymphocytes % 10.3 %; Mean Corpuscular HGB Conc 32.5 g/dL (30.0-36.0); Mean Corpuscular Hemoglobin 27.7 pg (28.0-34.0); Mean Corpuscular Volume 85.3 fL (80-94); Mean Platelet Volume 12.5 fL (7.4-10.4); Monocytes # 1.4 10^3/uL (0.2-0.9); Monocytes % 9.4 %; Nucleated Red Blood Cells % 0 %; Platelet Count 286 10^3/cmm (130-400); Red Blood Count 4.91 10^6/uL (4.1-5.3); Red Cell Distribution Width 12.8 % (12.1-15.1); White Blood Count 14.6 10^3/uL (4.0-10.0)
[2021-04-02] MEDS: budesonide 0.5 mg/2 mL Neb INHALATION ×2 (08:08→20:57)
[2021-04-02 08:12] LABS: Alanine Aminotransferase 13 U/L (0-41); Albumin Level 2.4 g/dL (3.5-5.2); Alkaline Phosphatase 56 IU/L (40-130); Anion Gap 9.1 (5-19); Aspartate Amino Transferase 19 U/L (0-40); Blood Urea Nitrogen 26 mg/dL (8-23); C Reactive Protein 5.2 mg/L (0.0-4.9); Calcium 9.2 mg/dL (8.5-10.5); Carbon Dioxide 25 mmol/L (22-29); Chloride 103 mmol/L (98-107); Creatinine Clr Calc Pharmacy 151.5938; Globulin 3.3 g/dL (1.3-4.6); Glomerular Filtration Rate 169.6 mL/min (90-130); Glucose 156 mg/dL (65-115); Osmolality Calculated 284 mOsm/kg (285-295); Potassium 4.1 mmol/L (3.5-5.1); Sodium 133 mmol/L (136-145); Total Bilirubin 0.7 mg/dL (0.15-1.2); Total Protein 5.7 g/dL (6.6-8.7)
[2021-04-02 08:35] LABS: Slide Review Slide Review Perform
[2021-04-02] MEDS: cyclobenzaprine 10 mg Tablet PO ×2 (09:31→17:03)
[2021-04-02] MEDS: apixaban 5 mg Tablet PO ×2 (09:31→22:39)
[2021-04-02] MEDS: metoprolol tartrate 50 mg Tablet 100 MG PO ×2 (09:31→22:39)
[2021-04-02] MEDS: zinc gluconate 50 mg Tablet PO (09:31)
[2021-04-02] MEDS: ferrous gluconate 324 mg Tablet PO ×2 (09:31→17:03)
[2021-04-02] MEDS: chlorhexidine gluconate 0.12% Btl 473 mL 15 ML MUCOUS MEM ×2 (09:32→17:03)
[2021-04-02] MEDS: ascorbic acid 500 mg Tablet 1000 MG PO ×2 (09:32→17:03)
[2021-04-02] MEDS: ertapenem 1,000 MG in sodium chloride 0.9% (plus) 100 ML 200 MG IV (09:33)
--- NOTE | 2021-04-02 10:02 | PC.CHAP ---
Pastoral Care Encounter/Spiritual Assessment Type of Contact [] Declined gold nib grinder visit [] Patient/Family/Request visit [] Outpatient visit [] Follow-up visit [] Physician referral [] Code/Alert [x] Routine visit [] Staff referral [] Actively dying [] Patient sleeping [] Family support [] [] Out of room [] Palliative care [] [] Receiving care in room [] Pre-surgical visit [] Trauma [] Long length of stay [] ICU visit [x] Other:covid Relational/Emotional Strength [] Patient feels connected with others/family/visitors/staff [] Distress [] Loneliness/isolation [] Abandonment Spirituality of Patient [] Person of Aurelia [] Attends Restoration of their Aurelia [] Believes in Prayer [] Reads Bible or Denominational materials [] There are Spiritual issues to be addressed Esthetician Interventions [x] Prayer [] Active listening [] Non-anxious presence [] Spiritual/emotional support [] Crisis/trauma care [] Spiritual counseling [] Bereavement support [] Provided bereavement packet [] Provided Bible/devotional materials [] Provided toy/stuffed animal, coloring book to patient or family member [] Provided Communion [] Anointing/[place] [] Salvation [x] Completed spiritual assessment [] Other: Impact on Illness or Injury [] Angry [] Fearful [] Anxious [] Often cries [] Exhaustion [] Unable to work [] Unable to attend religious [] Unable to walk/stand [] Unable to read [] Unable to drive [] Unable to eat/drink [] Unable to sleep [] Unable to be with family [] Patient intubated [] Other: Summary Time spent with patient
--- NOTE | 2021-04-02 11:57 | P.PN_ITS ---
Subjective Subjective: Interval history: Guille wants his feet moved when I go in the room. Respiratory reports he is doing a little bit better, requiring less oxygen. Medications: Reviewed: Yes Vitals/I&O/Wt Last Vital Signs Temp 98.3 F 04/02/21 08:00 Pulse 101 H 04/02/21 09:43 Resp 18 04/02/21 08:13 BP 98/60 04/02/21 08:00 Pulse Ox 90 04/02/21 09:43 04/01/21 04/02/21 04/02/21 22:59 06:59 14:59 Intake Total 540 / 1060 60 / 1120 100 / 100 Output Total 2400 / 2400 750 / 3150 Balance -1860 / -1340 -690 / -2030 100 / 100 Physical Exam Narrative: EXAM NARRATIVE: General exam no distress Neck is supple no lymphadenopathy or thyromegaly Cardiovascular regular rate and rhythm without murmur Lungs coarse breath sounds bilaterally Abdomen is soft with positive bowel sounds Extremities no cyanosis clubbing. Contractures noted. Urinary Catheter Management^: Rose: Cath Placed During This Visit: yes Reason for Continuing Indwelling Catheter: Accurate Measurement of Urinary Outpu t in Critically Ill Patients Urinary Catheter Date of Insertion: 03/21/21 Urinary Catheter Time of Insertion: 23:10 Data : 04/02/21 06:55 04/02/21 06:55 Micro: Microbiology 04/02/21 06:59 Blood Culture - Preliminary Blood SPECIMEN COLLECTED 04/02/21 06:55 Blood Culture - Preliminary Blood SPECIMEN COLLECTED 03/29/21 12:44 Blood Culture - Preliminary Blood 03/29/21 12:46 Blood Culture - Preliminary Blood Staphylococcus aureus 03/28/21 19:58 Blood Culture - Preliminary Blood Staphylococcus aureus 03/31/21 08:14 Blood Culture - Preliminary Blood NEGATIVE TO DATE 03/31/21 08:00 Blood Culture - Preliminary Blood NEGATIVE TO DATE A&P Assessment and plan (1) Septicemia: Persistent methicillin sensitive staph aureus bacteremia. Currently on cefazolin 2 g IV every 8 hours ID consult appreciated. Ertapenem added to clear from blood Will need IV antibiotics by PICC line, likely at nursing facility if recovers from ARDS to discharge. PICC line will be placed when bacteremia has resolved Cultures from March 29 are growing organism. Cultures from March 31 are still negative. We will arrange for PICC line. At this point I do not see need for continuation of a Zithromax. This will be discontinued. No plan for PARADISE currently as this will not change current management of bacteremia. Status: Acute (2) COVID-19: Has completed remdesivir Has been on dexamethasone since 03/21, therefore completing 10 days of treatment. This was discontinued Status: Acute (3) ARDS (adult respiratory distress syndrome): Wean oxygen as tolerated. He is currently on 60% Continue pulmonary toilet Status: Acute (4) Atrial fibrillation: Changed anticoagulation to Eliquis Continue metoprolol Status: Acute Additional A&P Information Hypertension. Continue metoprolol, Norvasc. Good control currently. Hyponatremia. Lasix 20 mg IV x1 given 04/01 with good result Allow natural Lovenox for DVT prophylaxis Attestations Medical Necessity Statement*: Needs continued hospitalization for IV antibiotics secondary to bacteremia Coding Level of Care Code Acute Hhas for [facility] Diagnoses Septicemia A41.9 COVID-19 U07.1 ARDS (adult respiratory distress syndrome) J80 Atrial fibrillation I48.91
[2021-04-02] MEDS: levalbuterol 0.63 mg/3 mL Neb INHALATION (20:57)
[2021-04-03] VITALS (11 sets, daily range): BP systolic 126–146; BP diastolic 62–74; PULSE 77–106; RESP 16–20; TEMP 36.6–36.8; O2SAT 89–96
[2021-04-03] MEDS: pantoprazole 40 mg SDV IVP ×2 (05:45→17:13)
[2021-04-03 07:27] LABS: Basophils # 0.1 10^3/uL (0.0-0.1); Basophils % 0.8 %; Eosinophils % 0.1 %; Hematocrit 40.7 % (42.0-52.0); Hemoglobin 13.2 g/dL (11.7-16.6); Lymphocytes # 1.3 10^3/uL (0.8-4.8); Lymphocytes % 9.2 %; Mean Corpuscular HGB Conc 32.4 g/dL (30.0-36.0); Mean Corpuscular Hemoglobin 28.1 pg (28.0-34.0); Mean Corpuscular Volume 86.8 fL (80-94); Mean Platelet Volume 11.8 fL (7.4-10.4); Monocytes # 1.3 10^3/uL (0.2-0.9); Monocytes % 9.2 %; Neutrophils # 10.94 10^3/uL (1.8-7.7); Neutrophils % 75.9 %; Nucleated Red Blood Cells % 0 %; Platelet Count 299 10^3/cmm (130-400); Red Blood Count 4.69 10^6/uL (4.1-5.3); Red Cell Distribution Width 13.1 % (12.1-15.1); White Blood Count 14.4 10^3/uL (4.0-10.0)
[2021-04-03] MEDS: zinc gluconate 50 mg Tablet PO (08:02)
[2021-04-03] MEDS: apixaban 5 mg Tablet PO ×2 (08:02→21:13)
[2021-04-03] MEDS: ferrous gluconate 324 mg Tablet PO ×2 (08:02→17:01)
[2021-04-03] MEDS: metoprolol tartrate 50 mg Tablet 100 MG PO ×2 (08:02→21:13)
[2021-04-03] MEDS: ascorbic acid 500 mg Tablet 1000 MG PO ×2 (08:02→17:01)
[2021-04-03] MEDS: cyclobenzaprine 10 mg Tablet PO ×2 (08:02→17:01)
[2021-04-03] MEDS: chlorhexidine gluconate 0.12% Btl 473 mL 15 ML MUCOUS MEM (08:03)
[2021-04-03] MEDS: ertapenem 1,000 MG in sodium chloride 0.9% (plus) 100 ML 200 MG IV (08:03)
[2021-04-03 08:04] LABS: Alanine Aminotransferase 16 U/L (0-41); Albumin Level 2.7 g/dL (3.5-5.2); Alkaline Phosphatase 62 IU/L (40-130); Anion Gap 12.4 (5-19); Aspartate Amino Transferase 23 U/L (0-40); Blood Urea Nitrogen 21 mg/dL (8-23); Calcium 9.4 mg/dL (8.5-10.5); Carbon Dioxide 25 mmol/L (22-29); Chloride 102 mmol/L (98-107); Globulin 3.2 g/dL (1.3-4.6); Glomerular Filtration Rate 137.4 mL/min (90-130); Glucose 150 mg/dL (65-115); Osmolality Calculated 286 mOsm/kg (285-295); Potassium 4.4 mmol/L (3.5-5.1); Sodium 135 mmol/L (136-145); Total Bilirubin 0.8 mg/dL (0.15-1.2); Total Protein 5.9 g/dL (6.6-8.7)
[2021-04-03] MEDS: levalbuterol 0.63 mg/3 mL Neb INHALATION ×2 (08:19→21:32)
[2021-04-03] MEDS: budesonide 0.5 mg/2 mL Neb INHALATION ×2 (08:19→21:32)
--- NOTE | 2021-04-03 09:55 | PC.CHAP ---
Pastoral Care Encounter/Spiritual Assessment Type of Contact [] Declined gymnasium teacher visit [] Patient/Family/Request visit [] Outpatient visit [] Follow-up visit [] Physician referral [] Code/Alert [x] Routine visit [] Staff referral [] Actively dying [] Patient sleeping [] Family support [] [] Out of room [] Palliative care [] [] Receiving care in room [] Pre-surgical visit [] Trauma [] Long length of stay [] ICU visit [x] Other: covid Relational/Emotional Strength [] Patient feels connected with others/family/visitors/staff [] Distress [] Loneliness/isolation [] Abandonment Spirituality of Patient [] Person of Aurelia [] Attends Yazdanism of their Aurelia [] Believes in Prayer [] Reads Bible or Adventism materials [] There are Spiritual issues to be addressed 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 Interventions [x] Prayer [] Active listening [] Non-anxious presence [] Spiritual/emotional support [] Crisis/trauma care [] Spiritual counseling [] Bereavement support [] Provided bereavement packet [] Provided Bible/devotional materials [] Provided toy/stuffed animal, coloring book to patient or family member [] Provided Communion [] Anointing/[place] [] Salvation [x] Completed spiritual assessment [] Other: Impact on Illness or Injury [] Angry [] Fearful [] Anxious [] Often cries [] Exhaustion [] Unable to work [] Unable to attend amish [] Unable to walk/stand [] Unable to read [] Unable to drive [] Unable to eat/drink [] Unable to sleep [] Unable to be with family [] Patient intubated [] Other: Summary Time spent with patient
--- NOTE | 2021-04-03 10:25 | P.PN_ITS ---
Subjective Subjective: Interval history: Guille reports no particular concerns today. He is still able to answer yes or no. He denies being short of breath or having pain. Medications: Reviewed: Yes Vitals/I&O/Wt Last Vital Signs Temp 98.1 F 04/03/21 08:00 Pulse 96 04/03/21 08:34 Resp 20 H 04/03/21 08:19 BP 132/68 04/03/21 08:00 Pulse Ox 93 04/03/21 08:19 04/02/21 04/03/21 04/03/21 22:59 06:59 14:59 Intake Total 0 / 160 60 / 220 160 / 160 Output Total 500 / 1200 Balance 0 / -540 -440 / -980 160 / 160 Physical Exam Narrative: EXAM NARRATIVE: General exam no distress Neck is supple no lymphadenopathy or thyromegaly Cardiovascular regular rate and rhythm without murmur Lungs coarse breath sounds bilaterally Abdomen is soft with positive bowel sounds Extremities no cyanosis clubbing. Contractures noted. Urinary Catheter Management^: Rose: Cath Placed During This Visit: yes Reason for Continuing Indwelling Catheter: Accurate Measurement of Urinary Output in Critically Ill Patients Urinary Catheter Date of Insertion: 03/21/21 Urinary Catheter Time of Insertion: 23:10 Data : 04/03/21 07:10 04/03/21 07:10 Micro: Microbiology 04/02/21 06:59 Blood Culture - Preliminary Blood NEGATIVE TO DATE 04/02/21 06:55 Blood Culture - Preliminary Blood NEGATIVE TO DATE 03/28/21 19:54 Blood Culture - Final Blood NO GROWTH AFTER 5 DAYS 03/28/21 19:58 Blood Culture - Final Blood Staphylococcus aureus 03/29/21 12:44 Blood Culture - Preliminary Blood 03/29/21 12:46 Blood Culture - Preliminary Blood Staphylococcus aureus A&P Assessment and plan (1) Septicemia: Persistent methicillin sensitive staph aureus bacteremia. Currently on cefazolin 2 g IV every 8 hours ID consult appreciated. Ertapenem added to clear from blood. He will not need this on discharge. Will need IV antibiotics by PICC line, likely at nursing facility if recovers from ARDS to discharge. PICC line to be placed today. Cultures from March 29 are growing organism. Cultures from March 31 are still negative. No plan for PARADISE currently as this will not change current management of bacteremia. Status: Acute (2) COVID-19: Has completed remdesivir Has been on dexamethasone since 03/21, therefore completing 10 days of treatment. This was discontinued Status: Acute (3) ARDS (adult respiratory distress syndrome): Wean oxygen as tolerated. He is currently on 60% Continue pulmonary toilet Status: Acute (4) Atrial fibrillation: Changed anticoagulation to Eliquis Continue metoprolol Status: Acute Additional A&P Information Hypertension. Continue metoprolol, Norvasc. Good control currently. Hyponatremia. Lasix 20 mg IV x1 given 04/01 with good result Allow natural Lovenox for DVT prophylaxis Probable discharge tomorrow No need for laboratory tomorrow. Attestations Medical Necessity Statement*: Needs continued hospitalization for IV antibiotics related to bacteremia Coding Level of Care Code Acute Rn Hemo Dialysis for [facility] Diagnoses Septicemia A41.9 COVID-19 U07.1 ARDS (adult respiratory distress syndrome) J80 Atrial fibrillation I48.91
--- NOTE | 2021-04-03 10:39 | PC.SOCIAL ---
IMM Updated Updated pt's mother, via phone, on Pg 2 IMM. No questions voiced. Provided pt care nurse a copy to give to pt since pt is on isolation. Initialed, dated, & timed copy in chart.
--- NOTE | 2021-04-03 13:07 | XR_ITS ---
WS: [id number] PORTABLE CHEST HISTORY: Post PICC COMPARISON: 04/01/2021 RIGHT PICC line has been placed with tip in the mid to distal SVC. No complication. Lung volumes are decreased with bilateral hazy opacifications which are stable. No pleural effusion o r pneumothorax. Cardiac size: Normal. Mediastinum/Aorta: Normal mediastinum. No osseous abnormality seen. XR/XR chest 1V portable [id number] IMPRESSION: Satisfactory placement RIGHT PICC line.
--- NOTE | 2021-04-03 16:27 | P.PN_ITS ---
Subjective Subjective: Interval history: Chart reviewed, plan discussed with hospitalist T max 100.7 overnight leukocytosis trending down to 14 improving 02 requirement at 4lpm today Blood cx from 03/31 thus far with NGTD Medications: Reviewed: Yes Vitals/I&O/Wt Last Vital Signs Temp 97.8 F 04/03/21 12:00 Pulse 81 04/03/21 12:00 Resp 17 04/03/21 12:00 BP 128/66 04/03/21 12:00 Pulse Ox 92 04/03/21 12:00 04/03/21 04/03/21 04/03/21 06:59 14:59 22:59 Intake Total 60 / 220 160 / 160 Output Total 500 / 1200 Balance -440 / -980 160 / 160 Physical Exam Narrative: EXAM NARRATIVE: Patient not examined in view of COVID, to best optimize PPE. Exam per hospitalist note Urinary Catheter Management^: Rose: Cath Placed During This Visit: yes Reason for Continuing Indwelling Catheter: Accurate Measurement of Urinary Output in Critically Ill Patients Urinary Catheter Date of Insertion: 03/21/21 Urinary Catheter Time of Insertion: 23:10 Data : 04/03/21 07:10 04/03/21 07:10 Micro: Microbiology 03/29/21 12:44 Blood Culture - Preliminary Blood Staphylococcus aureus 03/29/21 12:46 Blood Culture - Preliminary Blood Staphylococcus aureus 04/02/21 06:59 Blood Culture - Preliminary Blood NEGATIVE TO DATE 04/02/21 06:55 Blood Culture - Preliminary Blood NEGATIVE TO DATE 03/28/21 19:54 Blood Culture - Final Blood NO GROWTH AFTER 5 DAYS 03/28/21 19:58 Blood Culture - Final Blood Staphylococcus aureus 03/31: blood cx: NGTD thus far 04/02: blood cx : ngtd thus far A&P Assessment and plan (1) Staphylococcus aureus bacteremia: Persistent positive blood culture for MSSA between 03/25-03/29 Appears to be clearing as of 03/31/21 ABX history: Zosyn 03/25 to 03/28 , vancomycin 03/26-03/28--> Cefazolin 2g iv q8h 03/28---> Cefazolin + ertapenem 1g iv q24 03/31- current D/c Ertapenem today, Blood cx appears to have cleared from 8 am on 03/31, eratpenem was started at 11AM, therefore likely that cx cleared prior to adding adjunctive treatment. Source is unclear at this point, CT of the thoracolumbar spine does not show any acute epidural abscess or sites of discitis. CT abdomen without intra abdominal source of infection. No dental abscess noted on CT of the face or neck. CT chest with ARDS from COVID pneumonia. TTE with mildly thickened MV, no other gross abnormalities. Though endocarditis remains a possibility, defer PARADISE for now as unlikely to change clinical management. Patient will be treated with 6 weeks of iv abx for possible IE. In view of his other comorbidities, particularly acute hypoxic resp failure from COVID, risk of attempting PARADISE exceeds the clinical benefit at this time since he appears to be improving otherwise. Blood cx currently clear since 03/31 Picc line placed today in anticipation of discharge tomorrow Recommend discharge on cefazolin 2g iv q8h for 6 weeks (03/31-05/12) F/up with ID clinic in one month Weekly WBC, platelet, liver panel and cr check while on above abx. 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
[2021-04-03] MEDS: ondansetron 2 mg/ML SDV 2 mL 4 MG IVP (20:30)
[2021-04-04 04:00] VITALS: BP 128/79; PULSE 92; RESP 16; TEMP 36.8; O2SAT 90
[2021-04-04 04:51] VITALS: PULSE 102; RESP 17; O2SAT 90
[2021-04-04] MEDS: pantoprazole 40 mg SDV IVP (06:51)
[2021-04-04] MEDS: levalbuterol 0.63 mg/3 mL Neb INHALATION (08:40)
[2021-04-04] MEDS: budesonide 0.5 mg/2 mL Neb INHALATION (08:40)
[2021-04-04 08:52] VITALS: PULSE 108; RESP 22; O2SAT 93
[2021-04-04 09:04] VITALS: PULSE 111; RESP 22; O2SAT 91
--- NOTE | 2021-04-04 11:11 | PM.DCS ---
Discharge Providers Date of Admission: 03/21/21 15:04 Date of Discharge: April 04, 2021 Attending Provider at Admission: Brady Perdue MD Attending Provider at Discharge: Justin Byrne MD Primary Care Provider: Neville Rodriguez DO Diagnoses at Discharge Discharge Diagnosis (1) Staphylococcus aureus bacteremia: Status: Acute Reason for Visit Reason for Visit: covid positive Hospital Course Hospital Course Guille is a 61-year-old white male who presented on March 21. Initial complaints was Covid, and rhabdomyolysis was also noted. Patient was started on remdesivir and dexamethasone. During the course of his hospitalization he was found to have methicillin sensitive staph aureus bacteremia. Source was not obviously apparent. Multiple imaging tests including transthoracic echo, CT chest abdomen and pelvis, CT thoracolumbar spine were obtained. PARADISE was not thought to alter treatment so was not obtained. He was initially started on broad-spectrum antibiotics, and when sensitivities returned he was placed on cefazolin. Secondary to concern of failure to clear ertapenem was added. He did clear his blood prior to the addition of ertapenem on March 31. During his hospital stay he did require high flow oxygen, which was tapered to room air to 2 L at discharge. He also had some evidence of atrial fibrillation, and was placed on Eliquis. By the end of hospital stay he was stable ready to transition to skilled care for the remainder of his IV antibiotic regimen. He will follow-up with ID in clinic in 1 month. Patient is to receive a weekly CBC, CMP, CRP forwarded to his infectious disease doctor while on antibiotics. A PICC line was placed to facilitate antibiotic dosing. Physical Exam Narrative: EXAM NARRATIVE: General exam no apparent distress Neck is supple no lymphadenopathy thyromegaly Cardiovascular regular rate and rhythm without murmur Lungs clear Abdomen is soft nontender with positive bowel sounds Extremities no cyanosis clubbing or edema Urinary Catheter Management^: Rose: Cath Placed During This Visit: yes Reason for Continuing Indwelling Catheter: Other Urinary Catheter Date of Insertion: 03/21/21 Urinary Catheter Time of Insertion: 23:10 Discharge Data Data Completed and Pending: Completed Studies During Hospitalization Category Date Time Status CT abdomen pelvis wo con [id number] Rout ine Cat Scan 03/31/21 07:[address] angio chest PE protcl [id number] Rout ine Cat Scan 03/27/21 09:[address] facial bones w o con* [id number] Routi ne Cat Scan 03/28/21 15:[address] lumbar spine w con [id number] Routine Cat Scan 03/27/21 12:[address] neck wo con 70 490 Routine Cat Scan 03/28/21 15:[address] thoracic spine w con 25147 Routi ne Cat Scan 03/27/21 12:26 Completed CXRP [XR chest 1V portable [id number]] R outine Exams 04/03/21 13:07 Completed XR abdomen 1V* 74 018 Routine Exams 03/25/21 04:01 Completed XR chest 1V nimco ble 77297 Q48H Exams 03/25/21 06:00 Completed XR chest 1V inmco ble 96565 Q48H Exams 03/27/21 06:00 Completed XR chest 1V nimco ble 40656 Q48H Exams 03/29/21 06:00 Completed XR chest 1V nimco ble 59120 Q48H Exams 03/30/21 06:00 Completed XR chest 1V nimco ble 04733 Q48H Exams 04/01/21 06:00 Completed XR chest 1V nimco ble 55977 Routine Exams 03/23/21 14:57 Completed XR chest 1V nimco ble [id number] Stat Exams 03/21/21 11:52 Completed CV. echo complete * [id number] Routine Ultrasound 03/28/21 05:00 Completed US gall bladder 7 6705 Urgent Ultrasound 03/21/21 14:19 Completed Pending at discharge Category Date Time Status Blood Culture AM LABS Lab 04/02/21 06:59 Results Blood Culture Sta t Lab 03/29/21 12:46 Results Blood Culture Sta t Lab 03/31/21 08:14 Results Sputum Culture an d Gram Stain Stat Lab 03/25/21 11:10 Uncollected Urinalysis and Mi croscopic Routine Lab 03/25/21 11:10 Uncollected Vitals: Last Vital Signs Temp 98.3 F 04/04/21 04:00 Pulse 111 H 04/04/21 09:04 Resp 22 H 04/04/21 09:04 BP 128/79 04/04/21 04:00 Pulse Ox 91 04/04/21 09:04 Discharge Plan Discharge Patient Disposition: Xfer SNF Condition: Stable Prescriptions: New albuterol sulfate [Ventolin HFA] 90 mcg/actuation Hfa Aerosol Inhaler 2 puff inhalation Q4H.RESPIRATORY PRN (Reason: Shortness Of Breath) Qty: 1 RF: 0 metoprolol tartrate 50 mg Tablet 100 mg PO BID@0900,2100 Qty: 60 RF: 0 Eliquis 5 mg Tablet 5 mg PO BID@0900,2100 Qty: 60 RF: 0 cefazolin in 0.9% sod chloride 2 gram/100 mL solution See Rx Instructions .ROUTE .COMPLEX Qty: 22575 RF: 0 Continued cyclobenzaprine 10 mg tablet 10 mg PO BID RF: 0 omeprazole 20 mg capsule,delayed release(DR/EC) 20 mg PO BID RF: 0 Discontinued lisinopril 20 mg tablet 20 mg PO DAILY RF: 0 Discharge Orders: Discharge Order (Routine); Ordered 04/04/21 Ordered By: Justin Byrne Referrals: State In Home Services Setup [Other] (Call this number to get In home services setup. This service is provided by Medicaid insurance. They will ask questions & based off the answers, you are given points. To qualify for in home services, you have to have a certain number of points. ) Norma Luque MD [Hospitalist] - 1 month Discharge Activity: Increase activity as tolerated Activity Restrictions/Additional Instructions: Dysphagia level 2 diet. Thin liquids. To receive cefazolin 2 g IV every 8 hours x6 weeks, which started on March 31. He will receive dosing through May 12 [address] on 2 L per nasal cannula, may wean off as tolerated for sat greater than or equal to 92%. Weekly CBC, CMP, CRP while on antibiotics. Discharge Attestations Time Spent in Discharge Care*: greater than 30 min Quality Metrics Clinical Quality Measures During this hospital stay, did patient experience: None Coding Level of Care Code Acute [facility] note Diagnoses Staphylococcus aureus bacteremia R78.81; B95.61
[2021-04-04] MEDS: ascorbic acid 500 mg Tablet 1000 MG PO (11:14)
[2021-04-04] MEDS: zinc gluconate 50 mg Tablet PO (11:14)
[2021-04-04] MEDS: ferrous gluconate 324 mg Tablet PO (11:14)
[2021-04-04] MEDS: cyclobenzaprine 10 mg Tablet PO (11:14)
[2021-04-04] MEDS: chlorhexidine gluconate 0.12% Btl 473 mL 15 ML MUCOUS MEM (11:15)
[2021-04-04] MEDS: apixaban 5 mg Tablet PO (11:17)
[2021-04-04] MEDS: metoprolol tartrate 50 mg Tablet 100 MG PO (11:17)
--- NOTE | 2021-04-04 11:48 | PC.NURSE ---
Called [facility] to check on which pharmacy to [place] to. Spoke with Allison Mohan RN. [facility] pharmacy out of [place]
[2021-04-04 12:00] VITALS: BP 106/69; PULSE 87; RESP 24; TEMP 36.4; O2SAT 92
--- NOTE | 2021-04-04 12:19 | PC.NURSE ---
Called Gino, pt brother, to update him on pt condition and let him know that he will be discharged to [facility]. Answered all questions.
--- NOTE | 2021-04-04 13:58 | PC.NURSE ---
Called report to Allison Mohan LPN at [facility].
[2021-04-04 14:53] VITALS: BP 106/65; PULSE 87; RESP 22; TEMP 36.4; O2SAT 92
--- NOTE | 2021-04-08 10:21 | PC.SOCIAL ---
patient is at [facility] at this time. Notified [facility] that patient would have telehealth visit with Dr. Luque on 05-13-21 and her office would call to set up visit.
== END 2021-04-04 14:57 | disposition home or self-care (01) | DRG 177 ==
LOC: ER 13:24 → MEDSURG 19:33 → MS 2A 03-26 15:29
PROVIDERS: Student in an Organized Health Care Education/Training Program; Admitting Provider Internal Medicine; Emergency Provider Family Medicine; PCP Internal Medicine; Visit Provider Internal Medicine
DX: U07.1 COVID-19 (principal); A41.9 Sepsis, unspecified organism; J12.82 Pneumonia due to coronavirus disease 2019; J80 Acute respiratory distress syndrome; M62.82 Rhabdomyolysis; E87.1 Hypo-osmolality and hyponatremia; G93.40 Encephalopathy, unspecified; G80.9 Cerebral palsy, unspecified; B95.61 Methicillin susceptible Staphylococcus aureus infection as the cause of diseases classified elsewhere; I48.91 Unspecified atrial fibrillation; Z66 Do not resuscitate; E86.0 Dehydration; R00.0 Tachycardia, unspecified; R74.01 Elevation of levels of liver transaminase levels
CPT/HCPCS: 36415; 36569; 36600; 51702; 70486; 70490; 71045; 71275; 72129; 72132; 74018; 74176; 76705; 80051; 80053; 82330; 82550; 82728; 82805; 83036; 83540; 83550; 83605; 83690; 83735; 83880; 84100; 84145; 84439; 84443; 84481; 85007; 85025; 85378; 85384; 85651; 86140; 87040; 87077; 87186; 87205; 87641; 87806; 92507; 92523; 92526; 92610; 93005; 93306; 94640; 94762; 96365; 96372; 99285; C9113; J0690; J0696; J1100; J1200; J1335; J1650; J1940; J2405; J2543; J2765; J3370; J3535; J7030; J7050; J7614; J7626; J7644; Q0144; Q9967

== ENCOUNTER 2021-04-11 15:34 | Outpatient (CLI) | payer OTHER, MEDICARE, MEDICAID, SELFPAY ==
[2021-04-11 17:12] LABS: Glucose Urine UA Norm (Normal); Ketones Urine Negative (Negative); Protein Urine 1+ (Negative); Urine Appearance Hazy (CLEAR); Urine Color Amber (Yellow); pH Urine 5 (5-7)
[2021-04-11 17:13] LABS: Add Urine Microscopic? YES; Bilirubin Urine Neg (Negative); Blood Urine 3+ (Negative); Leukocyte Esterase Urine 1+ (Negative); Nitrate Urine Negative (Negative); Urobilinogen Urine Norm (Negative)
[2021-04-11 17:14] LABS: RBC Urine 40-50 /hpf (0-2); WBC Urine 40-55 /hpf (0-5)
[2021-04-11 17:17] LABS: Bacteria Urine 1+ /hpf; Mucus Urine 1+ /hpf; Uric Acid Crystals Urine 0-4 /hpf
[2021-04-11 17:18] LABS: Add Urine Culture? Yes
== END 2021-04-11 15:35 | disposition home or self-care (01) ==
PROVIDERS: PCP Internal Medicine; Visit Provider Internal Medicine
DX: R31.9 Hematuria, unspecified (principal)
CPT/HCPCS: 81001; 87086

== ENCOUNTER 2021-04-26 22:51 | Emergency (ER) | payer MEDICARE, MEDICAID, SELFPAY ==
[2021-04-26 23:04] VITALS: PULSE 89; RESP 18; TEMP 36.9; O2SAT 98; BMI 28.2
--- NOTE | 2021-04-26 23:08 | W.ED.GENADLT ---
HPI - General Adult General: Chief complaint: General Medical Stated complaint: PICC LINE ISSUE Time Seen by Provider: 04/26/21 22:57 PFSH ED PFSH: Medical History Cerebral palsy Course Vital Signs: Vital signs: Vital Signs Temperature 98.5 F 04/26/21 23:04 Pulse Rate 89 04/26/21 23:04 Respiratory Rate 18 04/26/21 23:04 Pulse Oximetry 98 04/26/21 23:04 Discharge Plan Discharge Patient Disposition: [facility] Clinical Impression: Displacement of peripherally inserted central catheter (PICC) Condition: Stable Discharge Orders: Discharge ED (Routine); Ordered 04/26/21 Ordered By: Mike Ga Referrals: Neville Rodriguez DO [Primary Care Provider] - 1-3 days Discharge Diet: Usual diet Discharge Activity: Increase activity as tolerated Patient Instructions: Peripherally Inserted Central Catheters and Midline Catheters (ED) Activity Restrictions/Additional Instructions: The PICC line was removed successfully and intact. We have no availability of PICC line placement in the emergency department or in the hospital at night or on the weekend. Peripheral IV catheter has been placed for use until Wednesday, when more PICC line services will be available. Standard peripheral IV catheter care until successful PICC line placement and peripheral IV line is discontinued. 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
--- NOTE | 2021-04-26 23:08 | PC.NURSE ---
PICC Line noted to right upper arm partially out; Dr. Ga at bedside; verbal order to remove line given; PICC line inspected, appears intact, clot noted to tip, no jagged edges noted. Dr. Ga cleared line and order to place a IV and send back to [facility].
[2021-04-26 23:09] VITALS: BP 136/91; PULSE 89; RESP 18; O2SAT 97
--- NOTE | 2021-06-02 02:29 | W.ED.GENADLT ---
HPI - General Adult General: Chief complaint: General Medical Stated complaint: PICC LINE ISSUE Time Seen by Provider: 04/26/21 22:57 History of Present Illness: HPI narrative: 61-year-old gentleman who is PICC line was partially removed in the assisted setting accidentally, and is not functioning. No other issues at this point. He has been getting IV antibiotic infusion through the PICC line, and it is necessary to continue his treatments. [facility] ED PFSH: Medical History Cerebral palsy Physical Exam Const: COMMON NORMALS: no acute distress and alert GENERAL APPEARANCE: cooperative HENMT: COMMON NORMALS: normocephalic HEAD & SCALP: normocephalic Resp: COMMON NORMALS: normal respiratory effort and No use of accessory muscles Cardio: COMMON NORMALS: Peripheral pulses 2+ throughout PERIPHERAL PULSES: Peripheral pulses 2+ throughout Neuro: SENSORIUM/ORIENTATION: Yes alert Skin: NARRATIVE SKIN EXAM: Partially removed PICC line left upper extremity. Course Vital Signs: Vital signs: Vital Signs Temperature 98.5 F 04/26/21 23:04 Pulse Rate 89 04/26/21 23:09 Respiratory Rate 18 04/26/21 23:09 Blood Pressure 136/91 04/26/21 23:09 Pulse Oximetry 97 04/26/21 23:09 MDM - General Adult MDM Narrative: Medical decision making narrative: PICC line removed with tip intact. Peripheral IV inserted. He will be allowed discharge back to the assisted Discharge Plan Discharge Patient Disposition: [facility] Clinical Impression: Displacement of peripherally inserted central catheter (PICC) Condition: Stable Discharge Orders: Discharge ED (Routine); Ordered 04/26/21 Ordered By: Mike Ga Referrals: Neville Rodriguez DO [Primary Care Provider] - 1-3 days Discharge Diet: Usual diet Discharge Activity: Increase activity as tolerated Patient Instructions: Peripherally Inserted Central Catheters and Midline Catheters (ED) Activity Restrictions/Additional Instructions: The PICC line was removed successfully and intact. We have no availability of PICC line placement in the emergency department or in the hospital at night or on the weekend. Peripheral IV catheter has been placed for use until Wednesday, when more PICC line services will be available. Standard peripheral IV catheter care until successful PICC line placement and peripheral IV line is discontinued. Coding Level of Care Code ED Obstetrical Anesthesiologist for Rno Ruelas
== END 2021-04-26 23:13 ==
PROVIDERS: Emergency Provider Nurse Practitioner Family; PCP Internal Medicine
DX: T82.524A Displacement of infusion catheter, initial encounter (principal); Y82.8 Other medical devices associated with adverse incidents; G80.9 Cerebral palsy, unspecified
CPT/HCPCS: 99281

== ENCOUNTER → 2021-05-02 10:35 | Day surgery (SDC) | payer MEDICARE, MEDICAID, SELFPAY ==
--- NOTE | 2021-05-02 11:13 | XR_ITS ---
WS: [id number] PORTABLE CHEST HISTORY: Post PICC placement COMPARISON: 04/03/2021 Left-sided PICC line with tip in the distal SVC. No complications. Patchy opacifications are slightly improved throughout both lungs. No pleural effusion or pneumothora x. Cardiac size: Normal. Mediastinum/Aorta: Normal mediastinum. No osseous abnormality seen. XR/XR chest 1V portable [id number] IMPRESSION: Interval placement of a left-sided PICC line in good position.
== END ==
PROVIDERS: PCP Internal Medicine; Visit Provider Internal Medicine
DX: Z45.2 Encounter for adjustment and management of vascular access device (principal)
CPT/HCPCS: 36569; 71045

== ENCOUNTER 2022-08-10 12:59 | Inpatient (IN) | payer MEDICARE, MEDICAID, SELFPAY ==
[2022-08-10] VITALS (9 sets, daily range): BP systolic 114–142; BP diastolic 65–81; PULSE 91–138; RESP 18–34; TEMP 37.2–39.7; O2SAT 91–96; BMI 38.7
--- NOTE | 2022-08-10 13:04 | ED_ITS ---
HPI - Fever General: Chief Complaint: Fever Stated Complaint: FEVER Time Seen by Provider: 08/10/22 13:04 History of Present Illness: Mr. Lucero is a 62-year-old gentleman with history of cerebral palsy presenting to the emergency department due to fever. Reports recurrent episodes of nausea and vomiting associated with fever and left lower extremity redness for approximately 1 to 2 days. Initially symptoms improved with Tylenol however recurred and patient, due to vomiting, has not been able to tolerate antipyretic since then. Intensity symptoms is moderate. Course has worsened. Denies any focal other source of infection symptoms. No other specific changes in health, exacerbating, or alleviating factors identified. Onset (ago): day(s) Measured temperature: 103 F Exacerbating factors: nothing Relieving factors: acetaminophen Associated symptoms: Reports chills, nausea, rash and vomiting Review of Systems General: Reports: 10 or more systems reviewed and unremarkable except in HPI and below Const: Reports: chills GI: Reports: nausea and vomiting PFSH ED PFSH: Medical History (Updated 08/15/22 @ 00:00 by ) Atrial fibrillation Benign essential hypertension with target blood pressure below 140/90 Cerebral palsy COVID-19 long term resident Spastic hemiplegia Staphylococcus aureus bacteremia Social History Smoking and tobacco status: former smoker Physical Exam Const: COMMON NORMALS: alert GENERAL APPEARANCE: cooperative, well developed and ill appearing (Somewhat) HENMT: COMMON NORMALS: normocephalic and atraumatic HEAD & SCALP: normocep halic and atraumatic THROAT: posterior oropharynx normal Eye: COMMON NORMALS: conjunctivae normal CONJUNCTIVA: Yes conjunctivae normal SCLERA: sclerae normal Neck/C-Spine: COMMON NORMALS: supple GENERAL: Yes trachea midline Resp: COMMON NORMALS: clear to auscultation bilaterally EFFORT & INSPECTION: Yes able to speak in complete sentences and Yes tachypneic AUSCULTATION: clear to auscultation bilaterally Cardio: COMMON NORMALS: regular rhythm RATE: tachycardic RHYTHM: regular rhythm GI: COMMON NORMALS: Soft to palpation PALPATION: Yes Soft to palpation and No Tenderness to palpation present (GI) Extremity: GENERAL: Yes normal exam except as noted and No edema Neuro: COMMON NORMALS: moves all extremities SENSORIUM/ORIENTATION: Yes alert and No Orientation impaired Psych: COMMON NORMALS: mental status grossly normal and Normal thought process present THOUGHT PROCESS: Normal thought process present Skin: NARRATIVE SKIN EXAM: Area of erythema without other significant skin changes in the left anterior sue Course Vital Signs: Vital signs: Vital Signs Temperature 98.4 F 08/14/22 13:10 Pulse Rate 86 08/14/22 14:00 Respiratory Rate 27 H 08/14/22 13:10 Blood Pressure 126/88 08/14/22 13:10 Pulse Oximetry 96 08/14/22 13:03 Oxygen Delivery Me thod 08/14/22 09:11 Oxygen Flow Rate 1.5 08/14/22 09:11 MDM - Fever Medical Decision Making 62-year-old gentleman presenting with generalized illness and skin changes. Exam as above. Patient is febrile and tachycardic. Labs notable for leukocytosis, hemoglobin normal though likely hemoconcentrated compared to prior. Metabolic panel with evidence of dehydration and hypokalemia. Viral studies negative. Chest x-ray with no lobar consolidation or pneumothorax. Given degree of illness without clear etiology as the patient's redness is not overly impressive compared to degree of illness advanced imaging to evaluate for other sources of infection is appropriate. CT without clear additional pathology to explain symptoms, incidental findings discussed with patient, edema and inflammatory spots likely correlates with left lower extremity cellulitis. Patient treated with antiemetic, antipyretic, broad-spectrum antibiotics and IV fluids. Medication for muscle spasticity also given. Most likely cause of patient symptoms is cellulitis meeting SIRS criteria. The results of ED evaluation were discussed with the patient including plan for admission due to requirement for level of care not available if discharged to prevent significant worsening/deterioration. Patient agreeable with plan. Discussed with hospitalist service who was agreeable to admit patient. Medical Records I reviewed the patient's medical records. Lab Data I reviewed the patient's lab results. 08/10/22 13:11 08/10/22 13:11 Radiology Impressions Chest/Abdomen/Pelvis CT 08/10/22 13:57 IMPRESSION: 1. Comparison chest CT 03/27/2021. Interval resolution of bilateral peripheral ground-glass opacities. No new acute consolidation or new ground-glass opacity. 2. Small hiatal hernia and coronary calcification. IMPRESSION: 1. Comparison CT 03/31/2021. 2. Moderate-large colorectal stool burden, increased since prior exam however no evidence of bowel obstruction or other acute bowel findings. 3. Hepatic steatosis without cirrhosis. 4. New small area of nonspecific edema/inflammatory response in the left inguinal/anterior left upper thigh soft tissue with mild regional reactive adenopathy. No regional fluid collection/abscess or soft tissue gas. 5. Mildly enlarged prostate. COMMENTS: Consistent with the [employer]'s Incidental Findings Committee white paper (J Am Maikel Radiol 2018): Any incidental renal lesion less than 1 cm or classified as too small to characterize, or any incidental cystic renal lesion characterized as simple-appearing, is likely benign. No follow-up imaging is recommended for these lesions per consensus recommendations based on imaging criteria. Modified Barium Swallow 08/12/22 09:00 IMPRESSION: 1. No evidence for aspiration or laryngeal penetration. 2. Rapid transit of liquids through the esophagus. Please see speech therapist report also for recommendations. Lower Extremity CT 08/12/22 13:03 IMPRESSION: 1. Cellulitis LEFT lower extremity extending into the intramuscular soft tissues. 2. No evidence of drainable fluid collection or abscess. 3. No evidence of osteomyelitis. Chest X-Ray 08/13/22 13:01 IMPRESSION: Decreased lung volumes otherwise negative chest. Laboratory Results WBC 26.4 10^3/uL (4.0-10.0) H 08/10/22 13:11 RBC 5.37 10^6/uL (4.1-5.3) H 08/10/22 13:11 Hgb 15.1 g/dL (11.7-16.6) 08/10/22 13:11 Hct 44.4 % (42.0-52.0) 08/10/22 13:11 MCV 82.7 fl (80-94) 08/10/22 13:11 MCH 28.1 pg (28.0-34.0) 08/10/22 13:11 MCHC 34.0 g/dL (30.0-36.0) 08/10/22 13:11 RDW 12.3 % (12.1-15.1) 08/10/22 13:11 Plt Count 276 10^3/cmm (130-400) 08/10/22 13:11 MPV 10.2 fL (7.4-10.4) 08/10/22 13:11 Neut % (Auto) 84.3 % 08/10/22 13:11 Lymph % (Auto) 7.2 % 08/10/22 13:11 [place] % (Auto) 6.8 % 08/10/22 13:11 Eos % (Auto) 0.0 % 08/10/22 13:11 Baso % (Auto) 0.5 % 08/10/22 13:11 Neut # (Auto) 22.30 10^3/uL (1.8-7.7) H 08/10/22 13:11 Lymph # (Auto) 1.9 10^3/uL (0.8-4.8) 08/10/22 13:11 [place] # (Auto) 1.8 10^3/uL (0.2-0.9) H 08/10/22 13:11 Eos # (Auto) 0.0 10^3/uL (0.0-0.8) 08/10/22 13:11 Baso # (Auto) 0.1 10^3/uL (0.0-0.1) 08/10/22 13:11 Nucleated RBC % (auto) 0 % 08/10/22 13:11 Nucleated RBCs # 0.0 /100WBC 08/10/22 13:11 PT 17.00 SECONDS (12.1-14.9) H 08/10/22 13:35 INR 1.35 (0.8-1.2) H 08/10/22 13:35 Sodium 130 mmol/L (136-145) L 08/10/22 13:11 Potassium 3.1 mmol/L (3.5-5.1) L 08/10/22 13:11 Chloride 90 mmol/L (98-107) L 08/10/22 13:11 Carbon Dioxide 25 mmol/L (22-29) 08/10/22 13:11 Anion Gap 18.1 (5-19) 08/10/22 13:11 BUN 15 mg/dL (8-23) 08/10/22 13:11 Creatinine 0.9 mg/dL (0.7-1.2) 08/10/22 13:11 GFR Calculation 85.8 mL/min (90-130) L 08/10/22 13:11 Glucose 124 mg/dL (65-115) H 08/10/22 13:11 Calculated Osmolality 272 mOsm/kg (285-295) L 08/10/22 13:11 Lactic Acid 2.8 mmol/L (0.5-2.2) H 08/10/22 13:35 Calcium 10.0 mg/dL (8.5-10.5) 08/10/22 13:11 Iron 19 ug/dL (59-158) L 08/10/22 13:11 TIBC 259 mcg/dl 08/10/22 13:11 % Saturation 7.3 % (20-50) L 08/10/22 13:11 Unsat Iron Binding 240 ug/dL (112-347) 08/10/22 13:11 Total Bilirubin 0.7 mg/dL (0.15-1.2) 08/10/22 13:11 AST 29 U/L (0-40) 08/10/22 13:11 ALT 24 U/L (0-41) 08/10/22 13:11 Alkaline Phosphatase 97 U/L (40-130) 08/10/22 13:11 C-Reactive Protein 164.4 mg/L (0.0-4.9) H 08/10/22 13:11 Total Protein 7.1 g/dL (6.6-8.7) 08/10/22 13:11 Albumin 4.2 g/dL (3.5-5.2) 08/10/22 13:11 Globulin 2.9 g/dL (1.3-4.6) 08/10/22 13:11 Vitamin B12 350 pg/mL (232-1245) 08/10/22 13:11 Folate 8.8 ng/mL (4.5-32.2) 08/10/22 13:11 Procalcitonin 5.80 ng/mL (0-0.5) H 08/10/22 13:11 TSH 0.39 uIU/mL (0.27-4.20) 08/10/22 13:11 Influenza Type A Ag negative (Negative) 08/10/22 14:10 Influenza Type B Ag negative (Negative) 08/10/22 14:10 SARS-CoV-2 Ag (Rapid) Negative (Negative) 08/10/22 14:10 Discharge Plan Discharge Patient Disposition: Admitted As Inpatient Admit Provider: Omar Chou Clinical Impression: Cellulitis, Sepsis Condition: Stable Discharge Diet: Advance as tolerated Discharge Activity: Resume usual activity and Increase activity as tolerated Coding Level of Care Code ED Joiner Helper for Ron Fwd Exam Comprehensive
--- NOTE | 2022-08-10 13:17 | XR_ITS ---
WS: [id number] Portable AP upright chest, 08/10/2022 Clinical Data: fever, tachycardia Comparison: Portable chest, 05/02/2021 Findings: No nodules, masses or effusions are seen. The heart is normal. The pulmonary vascularity is not increased. No pneumonia or pneumothorax is seen. There are nodules throughout the lungs unchang ed. There is probable scarring at the left costophrenic angle. XR/XR chest 1V portable [id number] Impression: Negative for acute cardiopulmonary change.
[2022-08-10 13:20] LABS: Basophils # 0.1 10^3/uL (0.0-0.1); Basophils % 0.5 %; Hematocrit 44.4 % (42.0-52.0); Hemoglobin 15.1 g/dL (11.7-16.6); Lymphocytes # 1.9 10^3/uL (0.8-4.8); Lymphocytes % 7.2 %; Mean Corpuscular Hemoglobin 28.1 pg (28.0-34.0); Mean Corpuscular Volume 82.7 fl (80-94); Mean Platelet Volume 10.2 fL (7.4-10.4); Monocytes # 1.8 10^3/uL (0.2-0.9); Monocytes % 6.8 %; Neutrophils % 84.3 %; Nucleated Red Blood Cells % 0 %; Platelet Count 276 10^3/cmm (130-400); Red Blood Count 5.37 10^6/uL (4.1-5.3); Red Cell Distribution Width 12.3 % (12.1-15.1); White Blood Count 26.4 10^3/uL (4.0-10.0)
[2022-08-10 13:37] LABS: Alanine Aminotransferase 24 U/L (0-41); Albumin Level 4.2 g/dL (3.5-5.2); Alkaline Phosphatase 97 U/L (40-130); Anion Gap 18.1 (5-19); Aspartate Amino Transferase 29 U/L (0-40); Blood Urea Nitrogen 15 mg/dL (8-23); Carbon Dioxide 25 mmol/L (22-29); Chloride 90 mmol/L (98-107); Globulin 2.9 g/dL (1.3-4.6); Glomerular Filtration Rate 85.8 mL/min (90-130); Glucose 124 mg/dL (65-115); Osmolality Calculated 272 mOsm/kg (285-295); Potassium 3.1 mmol/L (3.5-5.1); Sodium 130 mmol/L (136-145); Total Bilirubin 0.7 mg/dL (0.15-1.2); Total Protein 7.1 g/dL (6.6-8.7)
--- NOTE | 2022-08-10 13:57 | CTR_ITS ---
PROCEDURE INFORMATION: Exam: CT Chest With Contrast; Diagnostic Exam date and time: 08/10/2022 2:37 PM Age: 62 years old Clinical indication: Fever and nausea and vomiting; Shortness of breath; Additional info: Fever, tachypnea, tachycardia, n/v TECHNIQUE: Imaging protocol: Diagnostic computed tomography of the chest with contrast. Radiation optimization: All CT scans at this facility use at least one of these dose optimization techniques: automated exposure control; mA and/or kV adjustment per patient size (includes targeted exams where dose is matched to clinical indication); or iterative reconstruction. Contrast material: OMNI 350; Contrast volume: 100 ml; Contrast route: INTRAVENOUS (IV); COMPARISON: CT angio chest PE protcl [id number] 03/27/2021 8:17 AM RADIATION DOSE METRICS: Total DLP (mGy-cm): 1411.74 FINDINGS: Lungs: Interval improvement of previously noted bilateral diffuse peripheral patchy ground-glass opacities with areas of subpleural linear scarring bilaterally. No acute lung consolidation or new ground-glass opacity. No obvious peribronchial thickening. Lung assessment somewhat limited due to motion artifacts. Pleural spaces: Unremarkable. No pneumothorax. No pleural effusion. Heart: Normal heart size with coronary calcification. Lymph nodes: No enlarged lymph nodes. Vasculature: Unremarkable. No aortic aneurysm. Diaphragm: Small hiatal hernia. Bones/joints: No acute findings. Soft tissues: No acute findings. Other findings: Several images are somewhat degraded by artifacts from the patient's arm(s.) PROCEDURE INFORMATION: Exam: CT Abdomen And Pelvis With Contrast Exam date and time: 08/10/2022 2:37 PM Age: 62 years old Clinical indication: Fever and nausea and vomiting; Shortness of breath; Additional info: Fever, tachypnea, tachycardia, n/v TECHNIQUE: Imaging protocol: Computed tomography of the abdomen and pelvis with contrast. Radiation optimization: All CT scans at this facility use at least one of these dose optimization techniques: automated exposure control; mA and/or kV adjustment per patient size (includes targeted exams where dose is matched to clinical indication); or iterative reconstruction. Contrast material: OMNI 350; Contrast volume: 100 ml; Contrast route: INTRAVENOUS (IV); COMPARISON: CT abdomen pelvis wo con [id number] 03/31/2021 8:25 AM RADIATION DOSE METRICS: Total DLP (mGy-cm): 1411.74 FINDINGS: Tubes, catheters and devices: Rose balloon has been removed. Liver: Normal liver size with steatosis. No cirrhosis or suspicious lesion. Gallbladder and bile ducts: Normal. No calcified stones. No ductal dilation. Pancreas: Normal. No ductal dilation. Spleen: Normal. No splenomegaly. Adrenal glands: Normal. No mass. Kidneys and ureters: Left upper pole simple renal cyst measuring 2.4 cm. No hydronephrosis or perinephric collection. Nonobstructing right upper pole renal calculus measuring 2 x 2 mm. Stomach and bowel: Moderate-large colonic stool burden, increased since prior exam. No bowel obstruction or pneumatosis. No suspicious bowel wall thickening. Appendix: No evidence of appendicitis. Intraperitoneal space: Unremarkable. No free air. No significant fluid collection. Vasculature: No abdominal aortic aneurysm. Lymph nodes: See Soft tissues finding. Urinary bladder: Unremarkable as visualized. Reproductive: Mildly enlarged prostate similar to prior exam. Bones/joints: No acute fracture. Soft tissues: Small fat-containing left inguinal hernia. Small area of subcutaneous soft tissue haziness in the left inguinal/left anterior upper thigh region suggesting nonspecific edema/inflammatory response. No regional fluid collection or soft tissue gas. New small and borderline size lymph nodes are noted in the left external iliac/inguinal region, suggesting mild reactive adenopathy, measuring up to 11 mm short axis. Other findings: Several images are somewhat degraded by artifacts from the patient's arm(s.) CT/CT chest abd pel w con* IMPRESSION: 1. Comparison chest CT 03/27/2021. Interval resolution of bilateral peripheral ground-glass opacities. No new acute consolidation or new ground-glass opacity. 2. Small hiatal hernia and coronary calcification. IMPRESSION: 1. Comparison CT 03/31/2021. 2. Moderate-large colorectal stool burden, increased since prior exam however no evidence of bowel obstruction or other acute bowel findings. 3. Hepatic steatosis without cirrhosis. 4. New small area of nonspecific edema/inflammatory response in the left inguinal/anterior left upper thigh soft tissue with mild regional reactive adenopathy. No regional fluid collection/abscess or soft tissue gas. 5. Mildly enlarged prostate. COMMENTS: Consistent with the [place]'s Incidental Findings Committee white paper (J Am Maikel Radiol 2018): Any incidental renal lesion less than 1 cm or classified as too small to characterize, or any incidental cystic renal lesion characterized as simple-appearing, is likely benign. No follow-up imaging is recommended for these lesions per consensus recommendations based on imaging criteria.
[2022-08-10] MEDS: ondansetron 2 mg/ML SDV 2 mL 4 MG IVP (14:04)
[2022-08-10] MEDS: acetaminophen 1,000 MG/100 ML PIGGYBACK 400 MG IV (14:05)
[2022-08-10] MEDS: piperacillin-tazobactam 4.5 GM in sodium chloride 0.9% (plus) 50 ML IV (14:23)
[2022-08-10 14:26] LABS: Lactic Sepsis W/Reflex 2.8 mmol/L (0.5-2.2)
[2022-08-10 14:29] LABS: Influenza A by IFA negative (Negative); Influenza B by IFA negative (Negative)
[2022-08-10 14:30] LABS: SARS Covid-2 Antigen Negative (Negative)
[2022-08-10] MEDS: iohexol 350 mg/mL 500 mL Btl (per mL) IV (14:49)
[2022-08-10] MEDS: baclofen 10 mg Tablet 20 MG PO ×2 (15:22→21:51)
[2022-08-10 15:49] LABS: Reflex Lactate Order REFLEX LACTIC ORDERD
[2022-08-10 16:58] LABS: Lactic Acid level (Lactate) 1.4 mmol/L (0.5-2.2)
[2022-08-10] MEDS: Fleet Enema 133 mL Enema PR (17:50)
[2022-08-10] MEDS: lidocaine 1% 5 ML in potassium chloride premix 100 ML 25 ML IV (17:50)
--- NOTE | 2022-08-10 17:52 | PM.HP ---
Providers/Chief Complaint Primary Care Provider: Neville Rodriguez DO Chief Complaint: FEVER History of Present Illness Guille Lucero is a 62 year old male who is a long-term senior care resident for cerebral palsy with history of COVID-19 and difficulty to clear MSSA bacteremia in 2020 was brought in back from the senior care today because of nausea, vomiting and high-grade fever for the last 24 hours with concerns for possible flu. On examination patient is seen with sister at bedside. Patient is awake and alert laying comfortably in bed at his baseline mentation. States he does not have any belly pain or nausea or vomiting or difficulty in breathing currently. He saturating well on room air. ED course: He was found to have a possible cellulitis of his left lower limb. He was found to be tachycardic and was given 2 L bolus of IV fluids as per sepsis protocol. CT chest abdomen pelvis was done which was concerning for moderate to large colonic stool burden. He was found to have a fever of 102.7 Fahrenheit. He was started on empiric vancomycin and Zosyn. Review of Systems General: Reports: ROS unobtainable due to mental status Medications/Allergies Home Medications Medication Instructions Recorded Confirmed Last Taken Type cyclobenzaprine 10 mg tablet 10 mg PO BID 03/21/21 08/10/22 08/10/22 History omeprazole 20 mg capsule,delayed 20 mg PO DAILY 03/21/21 08/10/22 08/10/22 History release albuterol sulfate 90 mcg/actuation 2 puff inhalation Q4H.RESPIRATORY 04/04/21 08/10/22 Unknown Rx aerosol inhaler (Ventolin HFA) PRN Shortness Of Breath #1 g apixaban 5 mg tablet (Eliquis) 5 mg PO BID@0900,2100 #60 tabs 04/04/21 08/10/22 08/10/22 Rx baclofen 20 mg tablet 20 mg PO TID 07/07/21 08/10/22 08/10/22 History acetaminophen 325 mg tablet 325 mg PO Q6H PRN Pain 08/10/22 08/10/22 Unknown History bisacodyl 10 mg rectal suppository 10 mg OK DAILY PRN Constipation 08/10/22 08/10/22 Unknown History bisacodyl 5 mg tablet,delayed 5 mg PO DAILY PRN Constipation 08/10/22 08/10/22 Unknown History release (Dulcolax (bisacodyl)) chlorthalidone 25 mg tablet 25 mg PO DAILY 08/10/22 08/10/22 08/10/22 History magnesium hydroxide 400 mg/5 mL 30 ml PO DAILY PRN Constipation 08/10/22 08/10/22 Unknown History oral suspension (Milk of Magnesia) sodium phosphates 19 gram-7 118 ml OK DAILY PRN Constipation 08/10/22 08/10/22 Unknown History gram/118 mL enema (Fleet Enema) Allergies Allergy/AdvReac Type Severity Reaction Status Date / Time No Known Allergies Allergy Unverified 04/26/21 23:07 PFSH Acute PFSH: Medical History (Updated 08/10/22 @ 17:56 by Omar Chou MD) Atrial fibrillation Benign essential hypertension with target blood pressure below 140/90 Cerebral palsy COVID-19 long-term resident Spastic hemiplegia Staphylococcus aureus bacteremia Social History Smoking and tobacco status: former smoker Vitals/I&O/Wt Last Vital Signs Temp 102.7 F H 08/10/22 13:02 Pulse 114 H 08/10/22 17:50 Resp 34 H 08/10/22 13:02 Pulse Ox 91 08/10/22 17:50 O2 Del Method 08/10/22 17:25 08/10/22 08/10/22 08/10/22 06:59 14:59 22:59 Intake Total 100 / 100 1963 Balance 100 / 100 1963 Weight last 48 hrs Weight 108.862 kg Physical Exam Narrative: General: No acute distress, communicates limitedly through verbalization and sign language, AO x2-3, sister at bedside HEENT: PERRLA, pupils bilaterally equal and reactive Chest: Normal vesicular breath sounds, no added sounds, equal good air entry bilaterally CVS: S1-S2 irregularly irregular, tachycardia, no gallops, no rubs Abdomen: Soft, nontender, no organomegaly, bowel sounds present Neuro: No focal deficits, spastic paralysis, moving all limbs Data 08/10/22 13:11 08/10/22 13:11 Micro: Microbiology 08/10/22 13:35 Blood Culture - Preliminary Blood SPECIMEN COLLECTED 08/10/22 13:44 Blood Culture - Preliminary Blood SPECIMEN COLLECTED A&P Assessment and plan (1) Sepsis: Present on admission. Ruled in with tachycardia, high-grade fever, lactic acidosis on admission along with tachypnea. No endorgan damage. Unknown source of sepsis though patient does have cellulitis. Check blood culture, MRSA swab, urinalysis, urine culture, procalcitonin, urine Legionella, bacterial antigen. Patient does have leukocytosis. Does have a possibility of slight component of dehydration and hemoconcentration. Start empirically on vancomycin and Zosyn. Appreciate CT chest abdomen pelvis results. Given 2 L of IV fluid bolus as per sepsis protocol. Continue with normal saline at 75 cc/h. Flu swab, COVID-19 rapid antigen negative. Check COVID-19 PCR. (2) Cellulitis: Check CRP. Unlikely osteomyelitis. Depending on CRP we will plan on lower limb CT scan. No open wounds. (3) Constipation: Seen on CT scan. Fleet enema. Aggressive bowel regimen with milk of magnesia, senna and Colace. (4) Hyponatremia: Most likely secondary dehydration. Normal saline as above. Monitor BMP daily. Check urine lites. (5) Hypokalemia: OralReplace with him 80 mg. Monitor daily. (6) Atrial fibrillation: With rapid ventricular response on admission. Most likely secondary to sepsis. Start on metoprolol 25 mg twice daily. Continue with home dose of Eliquis. (7) Benign essential hypertension with target blood pressure below 140/90: Goal blood pressure less than 140/90 mmHg. Hold off on chlorthalidone now given dehydration. (8) Cerebral palsy: Qualifiers: Cerebral palsy type: unspecified type Qualified Code(s): G80.9 - Cerebral palsy, unspecified Plan CODE STATUS: DNR/DNI as per last admission. Will confirm with family. Protonix for PUD prophylaxis Eliquis is suffice as DVT prophylaxis. Admit to CSU Attestations Medical Necessity Statement*: Admission for more than 2 midnights for management of sepsis of unknown origin, constipation, cellulitis, hyponatremia in a patient with baseline cerebral palsy who is a senior care resident Time Spent in Patient Care: Greater than 35 minutes Coding Level of Care Code Acute Outside Medical Sales Representative for [facility] Diagnoses Sepsis A41.9 Cellulitis L03.90 Constipation K59.00 Hyponatremia E87.1 Hypokalemia E87.6 Atrial fibrillation I48.91 Benign essential hypertension with target blood pressure below 140/90 I10 Cerebral palsy G80.9 Cerebral palsy type: unspecified type
[2022-08-10 18:20] LABS: INR 1.35 (0.8-1.2)
[2022-08-10 19:01] LABS: Folate Level 8.8 ng/mL (4.5-32.2)
[2022-08-10 19:02] LABS: Thyroid Stimulating Hormone 0.39 uIU/mL (0.27-4.20); Vitamin B12 350 pg/mL (232-1245)
[2022-08-10 19:13] LABS: C Reactive Protein 164.4 mg/L (0.0-4.9); Iron 19 ug/dL (59-158)
[2022-08-10 19:38] LABS: Percent Saturation 7.3 % (20-50); Total Iron Binding Capacity 259 mcg/dl; Unsaturated Iron Binding 240 ug/dL (112-347)
[2022-08-10] MEDS: potassium chloride ER 20 mEq Tablet 40 MEQ PO (19:57)
[2022-08-10] MEDS: acetaminophen 325 mg Tablet 650 MG PO (19:57)
[2022-08-10] MEDS: docusate sodium 100 mg Capsule PO (19:57)
[2022-08-10] MEDS: sodium chlor 0.9% + KCl 20 mEq 20 MEQ/1,000 ML BAG 100 MEQ IV (19:58)
[2022-08-10] MEDS: piperacillin-tazobactam 3.375 GM in sodium chloride 0.9% (plus) 50 ML IV (20:39)
[2022-08-10] MEDS: metoprolol tartrate 25 mg Tablet PO (21:51)
[2022-08-10] MEDS: cyclobenzaprine 10 mg Tablet PO (21:52)
[2022-08-10] MEDS: apixaban 5 mg Tablet PO (21:52)
[2022-08-10] MEDS: magnesium hydroxide 30 mL UDC PO (21:53)
[2022-08-10 22:05] LABS: Adenovirus Not Detected (NOT DETECT); Chlamydia Pneumoniae Not Detected (NOT DETECT); Coronavirus 229E,HKU1,NL63,OC4 Not Detected (NOT DETECT); Human Metapneumovirus Not Detected (NOT DETECT); Human Rhinovirus/Enterovirus Not Detected (NOT DETECT); Influenza A Not Detected (NOT DETECT); Influenza A H1 Not Detected (NOT DETECT); Influenza A H1-2009 Not Detected (NOT DETECT); Influenza A H3 Not Detected (NOT DETECT); Influenza B Not Detected (NOT DETECT); Mycoplasma Pneumoniae Not Detected (NOT DETECT); Parainfluenza Virus Type 1 Not Detected (NOT DETECT); Parainfluenza Virus Type 2 Not Detected (NOT DETECT); Parainfluenza Virus Type 3 Not Detected (NOT DETECT); Parainfluenza Virus Type 4 Not Detected (NOT DETECT); Respiratory Syncytial Virus A Not Detected (NOT DETECT); Respiratory Syncytial Virus B Not Detected (NOT DETECT); SARS-COV-2 Not Detected (NOT DETECT)
[2022-08-11] VITALS (103 sets, daily range): BP systolic 98–144; BP diastolic 54–89; PULSE 0–195; RESP 17–42; TEMP 36.7–38.6; O2SAT 85–96
[2022-08-11 03:05] LABS: Urine Appearance Clear (CLEAR); Urine Color Yellow (Yellow)
[2022-08-11 03:06] LABS: Add Urine Microscopic? YES; Bilirubin Urine Neg (Negative); Blood Urine 2+ (Negative); Glucose Urine UA Norm (Normal); Ketones Urine Negative (Negative); Leukocyte Esterase Urine Negative (Negative); Nitrate Urine Negative (Negative); Protein Urine Trace (Negative); RBC Urine 0-4 /hpf (0-2); Urobilinogen Urine 4 mg/dL (Negative); pH Urine 6.5 (5-7)
[2022-08-11 03:07] LABS: Add Urine Culture? No; Amorphous Sediment Urine 1+ /hpf; Hyaline Casts Urine 0-4 /lpf; Mucus Urine TRACE /hpf; Squamous Epithelial Cell Urine 0-4 /hpf (0-5); WBC Urine 0-4 /hpf (0-5)
[2022-08-11] MEDS: piperacillin-tazobactam 3.375 GM in sodium chloride 0.9% (plus) 50 ML IV ×3 (03:39→20:54)
[2022-08-11] MEDS: acetaminophen 325 mg Tablet 650 MG PO ×3 (03:42→22:10)
[2022-08-11] MEDS: sodium chlor 0.9% + KCl 20 mEq 20 MEQ/1,000 ML BAG 100 MEQ IV (05:10)
[2022-08-11 05:40] LABS: Basophils # 0.1 10^3/uL (0.0-0.1); Basophils % 0.5 %; Eosinophils % 0.2 %; Hematocrit 37.7 % (42.0-52.0); Hemoglobin 12.4 g/dL (11.7-16.6); Lymphocytes # 1.1 10^3/uL (0.8-4.8); Lymphocytes % 5.9 %; Mean Corpuscular HGB Conc 32.9 g/dL (30.0-36.0); Mean Corpuscular Hemoglobin 28.3 pg (28.0-34.0); Mean Corpuscular Volume 86.1 fl (80-94); Mean Platelet Volume 10.4 fL (7.4-10.4); Monocytes # 1.5 10^3/uL (0.2-0.9); Monocytes % 7.8 %; Neutrophils # 15.73 10^3/uL (1.8-7.7); Neutrophils % 84.8 %; Nucleated Red Blood Cells % 0 %; Platelet Count 211 10^3/cmm (130-400); Red Blood Count 4.38 10^6/uL (4.1-5.3); Red Cell Distribution Width 12.6 % (12.1-15.1); White Blood Count 18.6 10^3/uL (4.0-10.0)
[2022-08-11 05:47] LABS: Estmated Average Glucose 131; Hemoglobin A1C 6.2 % (4.0-6.0)
[2022-08-11 06:02] LABS: Alanine Aminotransferase 15 U/L (0-41); Alkaline Phosphatase 82 U/L (40-130); Anion Gap 13.9 (5-19); Aspartate Amino Transferase 29 U/L (0-40); Blood Urea Nitrogen 12 mg/dL (8-23); Carbon Dioxide 24 mmol/L (22-29); Chloride 106 mmol/L (98-107); Cholesterol 99 mg/dL (0-200); Globulin 2.9 g/dL (1.3-4.6); Glomerular Filtration Rate 114.6 mL/min (90-130); Glucose 143 mg/dL (65-115); HDL Cholesterol 43 mg/dL (60-100); LDL Cholesterol Calculated 38 mg/dL (50-129); Magnesium 1.7 mg/dL (1.7-2.3); Osmolality Calculated 292 mOsm/kg (285-295); Phosphorus 1.1 mg/dL (2.5-4.5); Potassium 3.9 mmol/L (3.5-5.1); Sodium 140 mmol/L (136-145); Total Bilirubin 0.3 mg/dL (0.15-1.2); Total Protein 5.9 g/dL (6.6-8.7); Triglycerides 90 mg/dL (0-150); VLDL Cholestrol Calculation 18 mg/dL (0-30)
[2022-08-11] MEDS: magnesium hydroxide 30 mL UDC PO (10:29)
[2022-08-11] MEDS: sodium chloride 0.45% 1,000 ML 75 ML IV (10:30)
[2022-08-11] MEDS: apixaban 5 mg Tablet PO ×2 (10:34→20:54)
[2022-08-11] MEDS: pantoprazole DR 40 mg Tablet PO (10:34)
[2022-08-11] MEDS: metoprolol tartrate 25 mg Tablet PO ×2 (10:34→16:55)
[2022-08-11] MEDS: docusate sodium 100 mg Capsule PO ×2 (10:35→16:55)
[2022-08-11] MEDS: cyclobenzaprine 10 mg Tablet PO ×2 (10:35→22:11)
[2022-08-11] MEDS: baclofen 10 mg Tablet 20 MG PO ×3 (10:35→20:53)
[2022-08-11 11:34] LABS: Glucose Point of Care 104 mg/dL (70-110)
--- NOTE | 2022-08-11 15:05 | PM.PN ---
Subjective Subjective: No acute vents overnight. Today morning seen with sister at bedside. Patient denies any nausea, vomiting, headache. Complaining of pain in his leg. T-max since admission 103.5 Fahrenheit at 8 PM last night. Nurses are concerned that patient is having episodes of aspiration as he was found to be coughing post ingestion of medications. Vitals/I&O/Wt Last Vital Signs Temp 98.4 F 08/11/22 11:37 Pulse 94 08/11/22 11:37 Resp 18 08/11/22 11:37 BP 103/76 08/11/22 11:37 Pulse Ox 91 08/11/22 11:37 O2 Del Method 08/11/22 10:00 08/11/22 08/11/22 08/11/22 06:59 14:59 22:59 Intake Total 1075 / 3819 1155 / 1155 Output Total 500 / 900 350 / 350 Balance 575 / 2919 805 / 805 Weight last 48 hrs Weight 88.178 kg Weight 108.862 kg Physical Exam Narrative: General: No acute distress, communicates limitedly through verbalization and sign language, AO x2-3, sister at bedside HEENT: PERRLA, pupils bilaterally equal and reactive Chest: Normal vesicular breath sounds, no added sounds, equal good air entry bilaterally CVS: S1-S2 irregularly irregular, tachycardia, no gallops, no rubs Abdomen: Soft, nontender, no organomegaly, bowel sounds present Neuro: No focal deficits, spastic paralysis, moving all limbs. Extremities: Left leg erythema, tenderness, localized trace of temperature present up to mid calf circumferential without any open wounds Data 08/11/22 05:00 08/11/22 05:00 Micro: Microbiology 08/10/22 13:44 Blood Culture - Preliminary Blood NEGATIVE TO DATE 08/10/22 13:35 Blood Culture - Preliminary Blood NEGATIVE TO DATE 08/10/22 19:50 MRSA Culture - Final Nose 08/10/22 15:25 Bacterial Antigens - Final Urine Kidney 08/11/22 02:05 Legionella Urinary Antigen - Final Urine,Clean Catch A&P Assessment and plan (1) Sepsis: Present on admission. Ruled in with tachycardia, high-grade fever, lactic acidosis on admission along with tachypnea. No endorgan damage. Unknown source of sepsis though patient does have cellulitis. MRSA negative, appreciate urinalysis. Blood cultures urine cultures so far negative. Procalcitonin elevated. He will continue, bacterial antigen negative. Persistent leukocytosis. Continue with vancomycin and Zosyn for now. Will DC antibiotics as per culture sensitivities. Switch fluid to half NS at 75 cc/h. Strict input output charting. Flu swab, COVID-19 PCR negative. Swallow evaluation. Keep n.p.o. for now except medications. Will advance diet as per swallow evaluation. (2) Cellulitis: CRP elevated. We will plan for leg x-ray to rule out bone involvement. No open wounds. (3) Constipation: Seen on CT scan. Fleet enema. Aggressive bowel regimen with milk of magnesia, senna and Colace. (4) Atrial fibrillation: Resolving. Continue metoprolol 25 mg twice daily and home dose of Eliquis. Has remained hemodynamically stable. (5) Hyponatremia: Most likely secondary dehydration. Resolved. (6) Hypokalemia: Resolved. (7) Benign essential hypertension with target blood pressure below 140/90: Goal blood pressure less than 140/90 mmHg. Hold off on chlorthalidone now given dehydration. (8) Cerebral palsy: Qualifiers: Cerebral palsy type: unspecified type Qualified Code(s): G80.9 - Cerebral palsy, unspecified Plan CODE STATUS: DNR/DNI as per last admission. Will confirm with family. Protonix for PUD prophylaxis Eliquis is suffice as DVT prophylaxis. NPO. Transfer to [facility]. 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
[2022-08-11 16:58] LABS: Glucose Point of Care 148 mg/dL (70-110)
[2022-08-11 20:41] LABS: Glucose Point of Care 154 mg/dL (70-110)
[2022-08-11] MEDS: insulin lispro 100 unit/1 mL SUBCUT (20:54)
[2022-08-11] MEDS: dilTIAZem 5 mg/mL SDV 5 mL 10 MG IVP (22:41)
[2022-08-11] MEDS: dilTIAZem 5 mg/mL SDV 5 mL IVP (23:23)
[2022-08-12] VITALS (149 sets, daily range): BP systolic 73–154; BP diastolic 48–93; PULSE 73–118; RESP 13–41; TEMP 36.6–37; O2SAT 82–98
[2022-08-12] MEDS: sodium chloride 0.45% 1,000 ML 75 ML IV (03:17)
[2022-08-12 03:56] LABS: Basophils # 0.1 10^3/uL (0.0-0.1); Basophils % 0.4 %; Eosinophils # 0.1 10^3/uL (0.0-0.8); Eosinophils % 0.6 %; Hematocrit 40.2 % (42.0-52.0); Hemoglobin 12.8 g/dL (11.7-16.6); Lymphocytes # 2.2 10^3/uL (0.8-4.8); Mean Corpuscular HGB Conc 31.8 g/dL (30.0-36.0); Mean Corpuscular Hemoglobin 27.7 pg (28.0-34.0); Mean Platelet Volume 10.6 fL (7.4-10.4); Monocytes # 1.4 10^3/uL (0.2-0.9); Monocytes % 8.5 %; Neutrophils # 12.07 10^3/uL (1.8-7.7); Neutrophils % 75.6 %; Nucleated Red Blood Cells % 0 %; Platelet Count 223 10^3/cmm (130-400); Red Blood Count 4.62 10^6/uL (4.1-5.3); Red Cell Distribution Width 12.6 % (12.1-15.1)
[2022-08-12 04:53] LABS: Alanine Aminotransferase 18 U/L (0-41); Albumin Level 3.3 g/dL (3.5-5.2); Alkaline Phosphatase 148 U/L (40-130); Anion Gap 13.9 (5-19); Aspartate Amino Transferase 22 U/L (0-40); Blood Urea Nitrogen 12 mg/dL (8-23); Calcium 9.9 mg/dL (8.5-10.5); Carbon Dioxide 28 mmol/L (22-29); Chloride 104 mmol/L (98-107); Globulin 2.4 g/dL (1.3-4.6); Glomerular Filtration Rate 98.3 mL/min (90-130); Glucose 102 mg/dL (65-115); Osmolality Calculated 294 mOsm/kg (285-295); Potassium 3.9 mmol/L (3.5-5.1); Sodium 142 mmol/L (136-145); Total Bilirubin 0.5 mg/dL (0.15-1.2); Total Protein 5.7 g/dL (6.6-8.7)
[2022-08-12] MEDS: piperacillin-tazobactam 3.375 GM in sodium chloride 0.9% (plus) 50 ML IV ×2 (05:26→15:30)
[2022-08-12 07:05] LABS: Glucose Point of Care 91 mg/dL (70-110)
--- NOTE | 2022-08-12 09:00 | FL_ITS ---
WS: [id number] MODIFIED BARIUM SWALLOW HISTORY: Oropharyngeal dysphagia FLUOROSCOPY TIME: 1min [id number] # of spot films: 25 Modified barium swallow was performed by the speech pathologist. Fluoroscopy was provided with the pa tient in a lateral projection. Multiple food consistencies were provided. Patient was unable to follow all food consistencies without too much difficulty. No aspiration or lar yngeal penetration evident. Solid foods and barium tablet were not provided. Speech pathologist was c oncern for airway protection. FL/FL barium swallow modifd [id number] IMPRESSION: 1. No evidence for aspiration or laryngeal penetration. 2. Rapid transit of liquids through the esophagus. Please see speech therapist report also for recommendations.
[2022-08-12] MEDS: baclofen 10 mg Tablet 20 MG PO ×3 (10:21→20:38)
[2022-08-12] MEDS: metoprolol tartrate 25 mg Tablet PO (10:21)
[2022-08-12] MEDS: pantoprazole DR 40 mg Tablet PO (10:21)
[2022-08-12] MEDS: apixaban 5 mg Tablet PO ×2 (10:21→20:39)
[2022-08-12] MEDS: cyclobenzaprine 10 mg Tablet PO (10:25)
[2022-08-12 11:51] LABS: Glucose Point of Care 118 mg/dL (70-110)
--- NOTE | 2022-08-12 13:03 | CT_ITS ---
WS: [id number] CT LEFT LOWER LEG WITH CONTRAST TECHNIQUE: CT LEFT lower leg without contrast with coronal and sagittal reformatted images. CLINICAL INFORMATION: cellulitis, possible abscess COMPARISON: None. DLP: 674.[address] scans at [facility] use at least one of these dose optimization techniques: automated e xposure control; mA and/or kV adjustment per patient size (includes targeted exams where dose is matc hed to clinical indication); or iterative reconstruction. FINDINGS: Diffuse inflammatory stranding with skin thickening and induration involving the LEFT lower extremity compatible with cellulitis and infection. No evidence of drainable abscess or fluid collection. Soft tissue infection extends into the intramuscular soft tissues. No evidence of osteomyelitis. CT/CT lower leg LT w con [id number] IMPRESSION: 1. Cellulitis LEFT lower extremity extending into the intramuscular soft tissu es. 2. No evidence of drainable fluid collection or abscess. 3. No evidence of osteomyelitis.
--- NOTE | 2022-08-12 13:07 | P.PN_ITS ---
Subjective Subjective: Overnight patient had developed tachycardia after a coughing bout for which she required IV Cardizem. Post Cardizem blood pressures have been charted as high 80s. Today morning patient seen post modified barium swallow. Patient is awake and alert. Heart rate better controlled. Blood pressure stable. Patient did develop wheezing and mild cough during the meal with diet. Tenderness in the leg on examination. Vitals/I&O/Wt Last Vital Signs Temp 98.1 F 08/12/22 07:25 Pulse 103 H 08/12/22 10:49 Resp 36 H 08/12/22 10:49 BP 154/76 08/12/22 10:49 Pulse Ox 95 08/12/22 10:49 O2 Del Method 08/12/22 08:37 08/11/22 08/12/22 08/12/22 22:59 06:59 14:59 Intake Total 170 / 1325 1050 / 2375 1100 / 1100 Output Total 350 / 700 Balance -180 / 625 1050 / 1675 1100 / 1100 Weight last 48 hrs Weight 88.178 kg Physical Exam Narrative: General: No acute distress, communicates limitedly through verbalization and sign language, AO x2-3, sister at bedside HEENT: PERRLA, pupils bilaterally equal and reactive Chest: Normal vesicular breath sounds, no added sounds, equal good air entry bilaterally CVS: S1-S2 irregularly irregular, tachycardia, no gallops, no rubs Abdomen: Soft, nontender, no organomegaly, bowel sounds present Neuro: No focal deficits, spastic paralysis, moving all limbs. Extremities: Left leg erythema, tenderness, localized trace of temperature present up to mid calf circumferential without any open wounds. Slightly increased then yesterday. Data 08/12/22 02:53 08/12/22 02:53 Micro: Microbiology 08/10/22 13:44 Blood Culture - Preliminary Blood NEGATIVE TO DATE 08/10/22 13:35 Blood Culture - Preliminary Blood NEGATIVE TO DATE 08/10/22 19:50 MRSA Culture - Final Nose 08/10/22 15:25 Bacterial Antigens - Final Urine Kidney A&P Assessment and plan (1) Sepsis: Present on admission. Ruled in with tachycardia, high-grade fever, lactic acidosis on admission along with tachypnea. No endorgan damage. Sepsis secondary cellulitis. MRSA negative, appreciate urinalysis. Blood cultures urine cultures so far ne gative. Procalcitonin elevated. Urine Legionella, bacterial antigen negative. Persistent leukocytosis even though patient has been on broad-spectrum antibiotics along with slight increase in arrhythmia today. Will get CT lower leg to rule out collection. Continue with vancomycin and Zosyn for now. Will DC antibiotics as per culture sensitivities. Stop IV fluids. Strict input output charting. Flu swab, COVID-19 PCR negative. Modified barium swallow results appreciated. Concerns for aspiration are still there. Continue with pur?ed diet. We will discuss with family further regarding more definitive plans of nutrition. As per MBS study patient is always at a risk of aspiration with any consistency given the anatomy and mentation. Advised for being up in the chair for at least 30 minutes post meals. Slow small bites. (2) Cellulitis: CRP elevated. CT leg to rule out bone involvement or collection. No open wounds. (3) Constipation: Post enema. Having bowel movements. Aggressive bowel regimen with milk of magnesia, senna and Colace. (4) Atrial fibrillation: Resolving. Occasional episodes of RVR. Increase dose of metoprolol to 50 mg twice daily. Continue with Eliquis. (5) Hyponatremia: Most likely secondary dehydration. Resolved. (6) Hypokalemia: Resolved. (7) Benign essential hypertension with target blood pressure below 140/90: Goal blood pressure less than 140/90 mmHg. Hold off on chlorthalidone now given dehydration. (8) Cerebral palsy: Qualifiers: Cerebral palsy type: unspecified type Qualified Code(s): G80.9 - Cerebral palsy, unspecified (9) Dysphagia: Appreciate MBS study and speech therapy recommendations. Will discuss with family regarding more definitive and safer modes of nutrition (10) shelter resident: Plan CODE STATUS: DNR/DNI as per last admission. Will confirm with family. Protonix for PUD prophylaxis Eliquis is suffice as DVT prophylaxis. Pur?e diet with aspiration precautions Continue care at [facility]. 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
[2022-08-12] MEDS: benzonatate 100 mg Capsule 200 MG PO ×2 (15:31→20:39)
[2022-08-12 16:34] LABS: Glucose Point of Care 111 mg/dL (70-110)
[2022-08-12] MEDS: docusate sodium 100 mg Capsule PO (18:21)
[2022-08-12] MEDS: metoprolol tartrate 25 mg Tablet 50 MG PO (20:39)
[2022-08-12 20:41] LABS: Glucose Point of Care 143 mg/dL (70-110)
[2022-08-13] VITALS (18 sets, daily range): BP systolic 127–149; BP diastolic 64–93; PULSE 65–96; RESP 16–30; TEMP 36.6–36.8; O2SAT 94–98
[2022-08-13 02:04] LABS: Basophils # 0.1 10^3/uL (0.0-0.1); Basophils % 0.7 %; Eosinophils # 0.2 10^3/uL (0.0-0.8); Eosinophils % 1.5 %; Hematocrit 40.2 % (42.0-52.0); Hemoglobin 13.2 g/dL (11.7-16.6); Lymphocytes # 1.5 10^3/uL (0.8-4.8); Lymphocytes % 11.6 %; Mean Corpuscular HGB Conc 32.8 g/dL (30.0-36.0); Mean Corpuscular Hemoglobin 28.5 pg (28.0-34.0); Mean Corpuscular Volume 86.8 fl (80-94); Mean Platelet Volume 10.3 fL (7.4-10.4); Monocytes # 1.3 10^3/uL (0.2-0.9); Monocytes % 9.7 %; Neutrophils # 9.74 10^3/uL (1.8-7.7); Neutrophils % 73.9 %; Nucleated Red Blood Cells % 0 %; Platelet Count 247 10^3/cmm (130-400); Red Blood Count 4.63 10^6/uL (4.1-5.3); Red Cell Distribution Width 12.4 % (12.1-15.1); White Blood Count 13.2 10^3/uL (4.0-10.0)
[2022-08-13 02:23] LABS: Alanine Aminotransferase 18 U/L (0-41); Albumin Level 3.7 g/dL (3.5-5.2); Alkaline Phosphatase 72 U/L (40-130); Anion Gap 13.9 (5-19); Aspartate Amino Transferase 20 U/L (0-40); Blood Urea Nitrogen 13 mg/dL (8-23); Calcium 9.9 mg/dL (8.5-10.5); Carbon Dioxide 29 mmol/L (22-29); Chloride 100 mmol/L (98-107); Globulin 3.1 g/dL (1.3-4.6); Glomerular Filtration Rate 114.6 mL/min (90-130); Glucose 133 mg/dL (65-115); Osmolality Calculated 290 mOsm/kg (285-295); Potassium 3.9 mmol/L (3.5-5.1); Sodium 139 mmol/L (136-145); Total Bilirubin 0.4 mg/dL (0.15-1.2); Total Protein 6.8 g/dL (6.6-8.7)
[2022-08-13] MEDS: piperacillin-tazobactam 3.375 GM in sodium chloride 0.9% (plus) 50 ML IV ×3 (05:15→20:20)
[2022-08-13 06:29] LABS: Glucose Point of Care 93 mg/dL (70-110)
[2022-08-13] MEDS: metoprolol tartrate 25 mg Tablet 50 MG PO ×2 (09:00→20:20)
[2022-08-13] MEDS: cyclobenzaprine 10 mg Tablet PO (09:00)
[2022-08-13] MEDS: pantoprazole DR 40 mg Tablet PO (09:00)
[2022-08-13] MEDS: apixaban 5 mg Tablet PO ×2 (09:00→20:23)
[2022-08-13] MEDS: docusate sodium 100 mg Capsule PO (09:02)
[2022-08-13] MEDS: baclofen 10 mg Tablet 20 MG PO ×3 (09:02→20:23)
[2022-08-13] MEDS: benzonatate 100 mg Capsule 200 MG PO ×3 (09:02→20:23)
--- NOTE | 2022-08-13 10:31 | PC.SOCIAL ---
IMM update Imm updated at bedside with sister who is dpoa. Copy of page 2 provided and sister verbalized understanding. Copy in chart initialed, dated and timed.
[2022-08-13 11:06] LABS: Glucose Point of Care 112 mg/dL (70-110)
[2022-08-13] MEDS: ipratropium-albuterol 3 mL Neb INHALATION ×2 (12:36→15:49)
--- NOTE | 2022-08-13 12:52 | P.PN_ITS ---
Subjective Subjective: No acute events overnight. Seen with family at bedside. Cough is better but still having occasional bouts of cough. Has remained hemodynamically stable and afebrile for last 24 hours. Last fever on 08/11 of 99.8 Fahrenheit. Vitals/I&O/Wt Last Vital Signs Temp 98.2 F 08/13/22 07:13 Pulse 79 08/13/22 12:44 Resp 22 H 08/13/22 12:44 BP 133/73 08/13/22 11:41 Pulse Ox 96 08/13/22 12:44 O2 Del Method 08/13/22 12:44 O2 Flow Rate 1.5 08/13/22 12:44 08/12/22 08/13/22 08/13/22 22:59 06:59 14:59 Intake Total 170 / 1270 50 / 1320 410 / 410 Output Total 775 / 775 325 / 325 Balance -605 / 495 50 / 545 85 / 85 Weight last 48 hrs Weight 81.919 kg Weight 84.368 kg Physical Exam Narrative: General: No acute distress, communicates limitedly through verbalization and sign language, AO x2-3, sister at bedside HEENT: PERRLA, pupils bilaterally equal and reactive Chest: Normal vesicular breath sounds, no added sounds, equal good air entry mina aterally CVS: S1-S2 irregularly irregular, tachycardia, no gallops, no rubs Abdomen: Soft, nontender, no organomegaly, bowel sounds present Neuro: No focal deficits, spastic paralysis, moving all limbs. Extremities: Left leg erythema, tenderness, localized trace of temperature present up to mid calf circumferential without any open wounds. Slightly increased then yesterday. Data 08/13/22 01:38 08/13/22 01:38 A&P Assessment and plan (1) Sepsis: Present on admission. Ruled in with tachycardia, high-grade fever, lactic acidosis on admission along with tachypnea. No endorgan damage. Sepsis secondary cellulitis. MRSA negative, appreciate urinalysis. Blood cultures urine cultures so far negative. Procalcitonin elevated. Urine Legionella, bacterial antigen negative. CT leg shows deep cellulitis without collection consistent with extensive cellulitis. Continue with vancomycin and Zosyn for now. Will DC antibiotics as per culture sensitivities. Cultures so far has remained negative. Stop IV fluids. Strict input output charting. Flu swab, COVID-19 PCR negative. Modified barium swallow results appreciated. Concerns for aspiration are still there. Continue with pur?ed diet. We will discuss with family further regarding more definitive plans of nutrition. As per MBS study patient is always at a risk of aspiration with any consistency given the anatomy and mentation. Advised for being up in the chair for at least 30 minutes post meals. Slow small bites. (2) Cellulitis: CRP elevated. CT leg ruled out bone involvement or collection. No open wounds. (3) Dysphagia: Appreciate MBS study and speech therapy recommendations. Patient having episodes of cough with meals. As per MBS study patient is at risk of aspiration with any kind of consistencies. Continue with pur?ed diet for now. Discussed with patient and patient's family. Do not want any modalities of artificial feeds. They are okay with continuing pur?ed diet for now. DuoNebs every 6 hour. IV Lasix 40 mg one-time. Oxygen supplementation keeping saturation over 90%. (4) Hypoxia: Most likely secondary to chronic aspiration. Cannot rule out reactive airway disease. Chest x-ray admission negative for pneumonia. Will repeat chest x-ray. (5) Atrial fibrillation: Rate controlled. Continue with metoprolol 50 mg twice daily. Continue with Eliquis. (6) Constipation: Post enema. Having bowel movements. Aggressive bowel regimen with milk of magnesia, senna and Colace. (7) Hyponatremia: Most likely secondary dehydration. Resolved. (8) Hypokalemia: Resolved. (9) Benign essential hypertension with target blood pressure below 140/90: Goal blood pressure less than 140/90 mmHg. Hold off on chlorthalidone now given dehydration. (10) Cerebral palsy: Qualifiers: Cerebral palsy type: unspecified type Qualified Code(s): G80.9 - Cerebral palsy, unspecified (11) skilled nursing resident: Plan CODE STATUS: DNR/DNI. Confirmed with patient and patient's family. Protonix for PUD prophylaxis Eliquis is suffice as DVT prophylaxis. Pur?e diet with aspiration precautions Continue care at [facility]. 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
--- NOTE | 2022-08-13 13:01 | XRR_ITS ---
PROCEDURE INFORMATION: Exam: XR Chest Exam date and time: 08/13/2022 1:13 PM Age: 62 years old Clinical indication: Other: Hypoxia TECHNIQUE: Imaging protocol: Radiologic exam of the chest. Views: 1 view. COMPARISON: CT chest abd pel w con* 08/10/2022 2:37 PM and chest x-ray performed May 02, 2021 FINDINGS: Lungs: Lung volumes are somewhat decreased but unchanged, which may be due to body habitus. No infiltrates. Pleural spaces: Unremarkable. No pleural effusion. No pneumothorax. Heart/Mediastinum: Unremarkable. No cardiomegaly. Bones/joints: Unremarkable. XR/XR chest 1V portable [id number] IMPRESSION: Decreased lung volumes otherwise negative chest.
[2022-08-13] MEDS: FUROsemide 10 mg/mL SDV 4mL 40 MG IVP (13:49)
[2022-08-13] MEDS: guaiFENesin-dextromethorphan UDC 10 mL 5 ML PO (13:50)
[2022-08-13] MEDS: acetaminophen 325 mg Tablet 650 MG PO (14:57)
[2022-08-13 17:10] LABS: Glucose Point of Care 136 mg/dL (70-110)
[2022-08-13 19:48] LABS: Glucose Point of Care 144 mg/dL (70-110)
[2022-08-13] MEDS: insulin lispro 100 unit/1 mL SUBCUT (20:25)
[2022-08-14] VITALS (11 sets, daily range): BP systolic 126–161; BP diastolic 64–88; PULSE 71–93; RESP 16–36; TEMP 36.9; O2SAT 93–100; BMI 29.1
[2022-08-14] MEDS: ipratropium-albuterol 3 mL Neb INHALATION ×2 (02:19→09:08)
[2022-08-14 03:04] LABS: Basophils # 0.2 10^3/uL (0.0-0.1); Basophils % 1.4 %; Eosinophils # 0.4 10^3/uL (0.0-0.8); Eosinophils % 3.6 %; Hematocrit 42.2 % (42.0-52.0); Hemoglobin 13.7 g/dL (11.7-16.6); Lymphocytes # 2.3 10^3/uL (0.8-4.8); Lymphocytes % 21.4 %; Mean Corpuscular HGB Conc 32.5 g/dL (30.0-36.0); Mean Corpuscular Hemoglobin 28.2 pg (28.0-34.0); Mean Corpuscular Volume 86.8 fl (80-94); Mean Platelet Volume 10.1 fL (7.4-10.4); Monocytes # 1.1 10^3/uL (0.2-0.9); Monocytes % 9.7 %; Neutrophils % 59.4 %; Nucleated Red Blood Cells % 0 %; Platelet Count 279 10^3/cmm (130-400); Red Blood Count 4.86 10^6/uL (4.1-5.3); Red Cell Distribution Width 12.2 % (12.1-15.1); White Blood Count 10.8 10^3/uL (4.0-10.0)
[2022-08-14 03:22] LABS: Alanine Aminotransferase 22 U/L (0-41); Albumin Level 3.6 g/dL (3.5-5.2); Alkaline Phosphatase 75 U/L (40-130); Anion Gap 12.2 (5-19); Aspartate Amino Transferase 24 U/L (0-40); Blood Urea Nitrogen 16 mg/dL (8-23); Calcium 9.6 mg/dL (8.5-10.5); Carbon Dioxide 30 mmol/L (22-29); Chloride 101 mmol/L (98-107); Globulin 3.1 g/dL (1.3-4.6); Glomerular Filtration Rate 98.3 mL/min (90-130); Glucose 109 mg/dL (65-115); Osmolality Calculated 292 mOsm/kg (285-295); Potassium 3.2 mmol/L (3.5-5.1); Sodium 140 mmol/L (136-145); Total Bilirubin 0.4 mg/dL (0.15-1.2); Total Protein 6.7 g/dL (6.6-8.7)
[2022-08-14] MEDS: piperacillin-tazobactam 3.375 GM in sodium chloride 0.9% (plus) 50 ML IV (04:46)
[2022-08-14] MEDS: metoprolol tartrate 25 mg Tablet 50 MG PO (09:24)
[2022-08-14] MEDS: apixaban 5 mg Tablet PO (09:25)
[2022-08-14] MEDS: baclofen 10 mg Tablet 20 MG PO (09:25)
[2022-08-14] MEDS: pantoprazole DR 40 mg Tablet PO (09:25)
[2022-08-14] MEDS: benzonatate 100 mg Capsule 200 MG PO (09:26)
[2022-08-14] MEDS: docusate sodium 100 mg Capsule PO (09:26)
[2022-08-14] MEDS: insulin lispro 100 unit/1 mL SUBCUT (09:26)
[2022-08-14] MEDS: cyclobenzaprine 10 mg Tablet PO (09:30)
--- NOTE | 2022-08-14 10:31 | PM.DCS ---
Discharge Providers Date of Admission: 08/10/22 15:19 Date of Discharge: August 14, 2022 Attending Provider at Admission: Omar Chou MD Attending Provider at Discharge: Omar Chou MD Primary Care Provider: Neville Rodriguez DO Diagnoses at Discharge Discharge Diagnosis (1) Sepsis: Status: Acute (2) Cellulitis: Status: Acute (3) Dysphagia: Status: Acute (4) Hypoxia: Status: Acute (5) Atrial fibrillation: Status: Acute (6) Constipation: Status: Acute (7) Hyponatremia: Status: Acute (8) Hypokalemia: Status: Acute (9) Benign essential hypertension with target blood pressure below 140/90: Status: Acute (10) Cerebral palsy: Status: Acute Qualifiers: Cerebral palsy type: unspecified type Qualified Code(s): G80.9 - Cerebral palsy, unspecified (11) long term resident: Status: Acute Reason for Visit Reason for Visit: FEVER Brief History: Guille Lucero is a 62 year old male who is a long-term care home resident for cerebral palsy with history of COVID-19 and difficulty to clear MSSA bacteremia in 2020 was brought in back from the care home today because of nausea, vomiting and high-grade fever for the last 24 hours with concerns for possible flu.? On examination patient is seen with sister at bedside.? Patient is awake and alert laying comfortably in bed at his baseline mentation.? States he does not have any belly pain or nausea or vomiting or difficulty in breathing currently.? He saturating well on room air. ED course: He was found to have a possible cellulitis of his left lower limb.? He was found to be tachycardic and was given 2 L bolus of IV fluids as per sepsis protocol.? CT chest abdomen pelvis was done which was concerning for moderate to large colonic stool burden.? He was found to have a fever of 102.7 Fahrenheit.? He was started on empiric vancomycin and Zosyn. Hospital Course Hospital Course Patient was admitted to the hospital for further evaluation and management. On admission there was a concern for sepsis secondary cellulitis. He was started on broad-spectrum antibiotics. On admission there was also concern for atrial fibrillation with rapid ventricular response which resolved with IV hydration. During hospitalization his blood cultures remain negative. He was also found to have cough and wheezing after meals with concern for aspiration he underwent barium swallow study which was concerning for rapid transit of liquid through the esophagus. Given the above there is a concern of continuous aspiration with any Consistency of food but safest would be pur?ed diet as per speech therapy team. Possibility of PEG tube placement versus diet modification were discussed in detail with patient's DPOA. They would prefer not to have a PEG tube and would want to continue with the diet modifications. Patient is been discharged back to care home on oral Augmentin and Levaquin for next 5 days with nebulization treatment as needed and on pur?ed diet. Physical Exam Narrative: General: No acute distress, communicates limitedly through verbalization and sign language, AO x2-3, sister at bedside HEENT: PERRLA, pupils bilaterally equal and reactive Chest: Normal vesicular breath sounds, no added sounds, equal good air entry bilaterally CVS: S1-S2 irregularly irregular, tachycardia, no gallops, no rubs Abdomen: Soft, nontender, no organomegaly, bowel sounds present Neuro: No focal deficits, spastic paralysis, moving all limbs. Extremities: Left leg erythema, tenderness, localized trace of temperature present up to mid calf circumferential without any open wounds. Slightly increased then yesterday. Discharge Data Studies Completed and Pending Completed Studies During Hospitalization Category Date Time Status CT chest abd pel w con* Stat Cat Scan 08/10/22 13:[address] lower leg LT w con [id number] Routine Cat Scan 08/12/22 13:03 Completed [place] barium swallow modifd [id number] Routine Exams 08/12/22 09:00 Completed XR chest 1V portable [id number] Routine Exams 08/13/22 13:01 Completed XR chest 1V portable [id number] Stat Exams 08/10/22 13:17 Completed Pending at discharge Category Date Time Status Blood Culture Stat Lab 08/10/22 13:35 Results SARS Covid-2 Antigen Routine Lab 08/14/22 10:23 Uncollected Radiology Impressions Chest/Abdomen/Pelvis CT 08/10/22 13:57 IMPRESSION: 1. Comparison chest CT 03/27/2021. Interval resolution of bilateral peripheral ground-glass opacities. No new acute consolidation or new ground-glass opacity. 2. Small hiatal hernia and coronary calcification. IMPRESSION: 1. Comparison CT 03/31/2021. 2. Moderate-large colorectal stool burden, increased since prior exam however no evidence of bowel obstruction or other acute bowel findings. 3. Hepatic steatosis without cirrhosis. 4. New small area of nonspecific edema/inflammatory response in the left inguinal/anterior left upper thigh soft tissue with mild regional reactive adenopathy. No regional fluid collection/abscess or soft tissue gas. 5. Mildly enlarged prostate. COMMENTS: Consistent with the [employer]'s Incidental Findings Committee white paper (J Am Maikel Radiol 2018): Any incidental renal lesion less than 1 cm or classified as too small to characterize, or any incidental cystic renal lesion characterized as simple-appearing, is likely benign. No follow-up imaging is recommended for these lesions per consensus recommendations based on imaging criteria. Modified Barium Swallow 08/12/22 09:00 IMPRESSION: 1. No evidence for aspiration or laryngeal penetration. 2. Rapid transit of liquids through the esophagus. Please see speech therapist report also for recommendations. Lower Extremity CT 08/12/22 13:03 IMPRESSION: 1. Cellulitis LEFT lower extremity extending into the intramuscular soft tissues. 2. No evidence of drainable fluid collection or abscess. 3. No evidence of osteomyelitis. Chest X-Ray 08/13/22 13:01 IMPRESSION: Decreased lung volumes otherwise negative chest. Laboratory Results WBC 10.8 10^3/uL (4.0-10.0) H 08/14/22 02:02 RBC 4.86 10^6/uL (4.1-5.3) 08/14/22 02:02 Hgb 13.7 g/dL (11.7-16.6) 08/14/22 02:02 Hct 42.2 % (42.0-52.0) 08/14/22 02:02 MCV 86.8 fl (80-94) 08/14/22 02:02 MCH 28.2 pg (28.0-34.0) 08/14/22 02:02 MCHC 32.5 g/dL (30.0-36.0) 08/14/22 02:02 RDW 12.2 % (12.1-15.1) 08/14/22 02:02 Plt Count 279 10^3/cmm (130-400) 08/14/22 02:02 MPV 10.1 fL (7.4-10.4) 08/14/22 02:02 Neut % (Auto) 59.4 % 08/14/22 02:02 Lymph % (Auto) 21.4 % 08/14/22 02:02 [place] % (Auto) 9.7 % 08/14/22 02:02 Eos % (Auto) 3.6 % 08/14/22 02:02 Baso % (Auto) 1.4 % 08/14/22 02:02 Neut # (Auto) 6.40 10^3/uL (1.8-7.7) 08/14/22 02:02 Lymph # (Auto) 2.3 10^3/uL (0.8-4.8) 08/14/22 02:02 [place] # (Auto) 1.1 10^3/uL (0.2-0.9) H 08/14/22 02:02 Eos # (Auto) 0.4 10^3/uL (0.0-0.8) 08/14/22 02:02 Baso # (Auto) 0.2 10^3/uL (0.0-0.1) H 08/14/22 02:02 Nucleated RBC % (auto) 0 % 08/14/22 02:02 Nucleated RBCs # 0.0 /100WBC 08/14/22 02:02 PT 17.00 SECONDS (12.1-14.9) H 08/10/22 13:35 INR 1.35 (0.8-1.2) H 08/10/22 13:35 Sodium 140 mmol/L (136-145) 08/14/22 01:46 Potassium 3.2 mmol/L (3.5-5.1) L 08/14/22 01:46 Chloride 101 mmol/L (98-107) 08/14/22 01:46 Carbon Dioxide 30 mmol/L (22-29) H 08/14/22 01:46 Anion Gap 12.2 (5-19) 08/14/22 01:46 BUN 16 mg/dL (8-23) 08/14/22 01:46 Creatinine 0.8 mg/dL (0.7-1.2) 08/14/22 01:46 GFR Calculation 98.3 mL/min (90-130) 08/14/22 01:46 Glucose 109 mg/dL (65-115) 08/14/22 01:46 POC Glucose 144 mg/dL (70-110) H 08/13/22 19:40 Estimat Average Glucose 131 08/11/22 05:00 Hemoglobin A1c 6.2 % (4.0-6.0) H 08/11/22 05:00 Calculated Osmolality 292 mOsm/kg (285-295) 08/14/22 01:46 Lactic Acid 2.8 mmol/L (0.5-2.2) H 08/10/22 13:35 Lactic Acid (Sepsis) 1.4 mmol/L (0.5-2.2) 08/10/22 16:28 Calcium 9.6 mg/dL (8.5-10.5) 08/14/22 01:46 Phosphorus 1.1 mg/dL (2.5-4.5) L 08/11/22 05:00 Magnesium 1.7 mg/dL (1.7-2.3) 08/11/22 05:00 Iron 19 ug/dL (59-158) L 08/10/22 13:11 TIBC 259 mcg/dl 08/10/22 13:11 % Saturation 7.3 % (20-50) L 08/10/22 13:11 Unsat Iron Binding 240 ug/dL (112-347) 08/10/22 13:11 Total Bilirubin 0.4 mg/dL (0.15-1.2) 08/14/22 01:46 AST 24 U/L (0-40) 08/14/22 01:46 ALT 22 U/L (0-41) 08/14/22 01:46 Alkaline Phosphatase 75 U/L (40-130) 08/14/22 01:46 C-Reactive Protein 164.4 mg/L (0.0-4.9) H 08/10/22 13:11 Total Protein 6.7 g/dL (6.6-8.7) 08/14/22 01:46 Albumin 3.6 g/dL (3.5-5.2) 08/14/22 01:46 Globulin 3.1 g/dL (1.3-4.6) 08/14/22 01:46 Triglycerides 90 mg/dL (0-150) 08/11/22 05:00 Cholesterol 99 mg/dL (0-200) 08/11/22 05:00 LDL Cholesterol, Calc 38 mg/dL (50-129) L 08/11/22 05:00 Total VLDL Cholesterol 18 mg/dL (0-30) 08/11/22 05:00 HDL Cholesterol 43 mg/dL (60-100) L 08/11/22 05:00 Cholesterol/HDL Ratio 2.30 mg/dL (1.0-5.00) 08/11/22 05:00 Vitamin B12 350 pg/mL (232-1245) 08/10/22 13:11 Folate 8.8 ng/mL (4.5-32.2) 08/10/22 13:11 Procalcitonin 5.80 ng/mL (0-0.5) H 08/10/22 13:11 TSH 0.39 uIU/mL (0.27-4.20) 08/10/22 13:11 Urine Color Yellow (Yellow) 08/11/22 02:05 Urine Appearance Clear (CLEAR) 08/11/22 02:05 Urine pH 6.5 (5-7) 08/11/22 02:05 Ur Specific Britton 1.010 (1.005-1.030) 08/11/22 02:05 Urine Protein Trace (Negative) 08/11/22 02:05 Urine Glucose (UA) Norm (Normal) 08/11/22 02:05 Urine Ketones Negative (Negative) 08/11/22 02:05 Urine Blood 2+ (Negative) H 08/11/22 02:05 Urine Nitrate Negative (Negative) 08/11/22 02:05 Urine Bilirubin Neg (Negative) 08/11/22 02:05 Urine Urobilinogen 4 mg/dL (Negative) H 08/11/22 02:05 Ur Leukocyte Esterase Negative (Negative) 08/11/22 02:05 Urine RBC 0-4 /hpf (0-2) H 08/11/22 02:05 Urine WBC 0-4 /hpf (0-5) H 08/11/22 02:05 Ur Squamous Epith Cells 0-4 /hpf (0-5) H 08/11/22 02:05 Amorphous Sediment 1+ /hpf 08/11/22 02:05 Urine Bacteria None /hpf (NONE) 08/11/22 02:05 Hyaline Casts 0-4 /lpf H 08/11/22 02:05 Urine Mucus Trace /hpf 08/11/22 02:05 Coronavirus 229E (PCR) Not detected (NOT DETECT) 08/10/22 19:50 Influenza Type A Ag negative (Negative) 08/10/22 14:10 Influenza Type B Ag negative (Negative) 08/10/22 14:10 SARS-CoV-2 (PCR) Not detected (NOT DETECT) 08/10/22 19:50 SARS-CoV-2 Ag (Rapid) Negative (Negative) 08/10/22 14:10 Vitals Last Vital Signs Temp 98.4 F 08/14/22 08:51 Pulse 93 08/14/22 09:15 Resp 22 H 08/14/22 09:11 BP 161/78 08/14/22 08:51 Pulse Ox 96 08/14/22 09:11 O2 Del Method 08/14/22 09:11 O2 Flow Rate 1.5 08/14/22 09:11 Discharge Plan Discharge Patient Disposition: Xfer [facility] Condition: Stable Prescriptions: New dextromethorphan-guaifenesin 10-100 mg/5 mL Syrup 5 ml PO Q4H PRN (Reason: Cough) Qty: 100 0RF levofloxacin 500 mg tablet 500 mg PO Q24H 5 Days Qty: 5 0RF Augmentin 500-125 mg tablet 1 tab PO BID Qty: 10 0RF albuterol sulfate 0.63 mg/3 mL solution for nebulization 0.63 mg inhalation Q8H PRN (Reason: shortness of breath or wheezing) Qty: 90 0RF Continued baclofen 20 mg tablet 20 mg PO TID cyclobenzaprine 10 mg tablet 10 mg PO BID omeprazole 20 mg capsule,delayed release(DR/EC) 20 mg PO DAILY albuterol sulfate [Ventolin HFA] 90 mcg/actuation Hfa Aerosol Inhaler 2 puff inhalation Q4H.RESPIRATORY PRN (Reason: Shortness Of Breath) Qty: 1 0RF Eliquis 5 mg Tablet 5 mg PO BID@0900,2100 Qty: 60 0RF acetaminophen 325 mg Tablet 325 mg PO Q6H PRN (Reason: Pain) chlorthalidone 25 mg Tablet 25 mg PO DAILY Milk of Magnesia 400 mg/5 mL Suspension 30 ml PO DAILY PRN (Reason: Constipation) bisacodyl 10 mg Suppository 10 mg HI DAILY PRN (Reason: Constipation) Fleet Enema 19-7 gram/118 mL Enema 118 ml HI DAILY PRN (Reason: Constipation) Dulcolax (bisacodyl) 5 mg Tablet,Delayed Release (Dr/Ec) 5 mg PO DAILY PRN (Reason: Constipation) Discharge Orders: Discharge Order (Routine); Ordered 08/14/22 Ordered By: Omar Chou Other Ambulatory Orders: DME: Nebulizer with Neb Kit (Order) Location: None Selected Ordered By: Omar Chou Referrals: [facility] [Outside] Neville Rodriguez DO [Primary Care Provider] - 7-10 days Discharge Diet: Advance as tolerated Discharge Activity: Resume usual activity and Increase activity as tolerated Patient Instructions: Opioid Safety Activity Restrictions/Additional Instructions: Pur?ed diet?dysphagia level 5 diet. Please make sure that he sitting up in bed for at least 40 minutes after each meal to prevent aspiration. You will be on Augmentin and Levaquin which are the antibiotics for next 5 days. Discharge Attestations Time Spent in Discharge Care*: greater than 30 min Specific Discharge Activities: educating patient, educating and/or supporting family/caregiver, discussing with immigration case manager/social workers/dc planners, documenting/other paperwork and evaluating patient/reviewing data Status at Discharge: Cognitive status at discharge: cognitively intact, Behavioral status at discharge: cooperative, Functional status at discharge: wheelchair bound, Overall status at discharge: patient is back to baseline Quality Metrics Clinical Quality Measures [ No reported AMI, CVA or VTE this stay] Coding Level of Care Code Acute Chg FW DC note Diagnoses Sepsis A41.9 Cellulitis L03.90 Dysphagia R13.10 Hypoxia R09.02 Atrial fibrillation I48.91 Constipation K59.00 Hyponatremia E87.1 Hypokalemia E87.6 Benign essential hypertension with target blood pressure below 140/90 I10 Cerebral palsy G80.9 Cerebral palsy type: unspecified type long term resident Z59.3
[2022-08-14 10:52] LABS: Glucose Point of Care 125 mg/dL (70-110)
--- NOTE | 2022-08-14 11:57 | PC.CHAP ---
Pastoral Care Encounter/Spiritual Assessment Type of Contact [] Declined application dba visit [] Patient/Family/Request visit [] Outpatient visit [] Follow-up visit [] Physician referral [] Code/Alert [x] Routine visit [] Staff referral [] Actively dying [] Patient sleeping [] Family support [] [] Out of room [] Palliative care [] [] Receiving care in room [] Pre-surgical visit [] Trauma [] Long length of stay [] ICU visit [] Other: Relational/Emotional Strength x[] Patient feels connected with others/family/visitors/staff [] Distress [] Loneliness/isolation [] Abandonment Spirituality of Patient [x] Person of Aurelia [x] Attends Moravian of their Aurelia [x] Believes in Prayer [] Reads Bible or Baptist materials [] There are Spiritual issues to be addressed 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 [x] Prayer [x] Active listening [x] Non-anxious presence [] Spiritual/emotional support [] Crisis/trauma care [] Spiritual counseling [] Bereavement support [] Provided bereavement packet [] Provided Bible/devotional materials [] Provided toy/stuffed animal, coloring book to patient or family member [] Provided Communion [] Anointing/[place] [] Salvation [x] Completed spiritual assessment [] Other: Impact on Illness or Injury [] Angry [] Fearful [] Anxious [] Often cries [] Exhaustion [] Unable to work [] Unable to attend congregation [] Unable to walk/stand [] Unable to read [] Unable to drive [] Unable to eat/drink [] Unable to sleep [] Unable to be with family [] Patient intubated [] Other: Summary Time spent with patient 10 min
[2022-08-14] MEDS: potassium chloride ER 20 mEq Tablet 40 MEQ PO (12:02)
[2022-08-14] MEDS: lanolin oint 7 gm 1 APPLIC TOPICAL (12:02)
[2022-08-14 12:46] LABS: SARS Covid-2 Antigen negative (Negative)
--- NOTE | 2022-08-14 13:28 | PC.NURSE ---
report called to [facility]
== END 2022-08-14 15:25 | disposition skilled nursing facility (03) | DRG 872 ==
LOC: ER 15:51 → CSU 18:28
PROVIDERS: Admitting Provider Student in an Organized Health Care Education/Training Program; Emergency Provider Emergency Medicine; PCP Internal Medicine; Visit Provider Student in an Organized Health Care Education/Training Program
DX: A41.9 Sepsis, unspecified organism (principal); L03.116 Cellulitis of left lower limb; E87.1 Hypo-osmolality and hyponatremia; R13.10 Dysphagia, unspecified; I48.91 Unspecified atrial fibrillation; K59.00 Constipation, unspecified; E87.6 Hypokalemia; I10 Essential (primary) hypertension; G80.9 Cerebral palsy, unspecified; Z86.16 Personal history of COVID-19; Z79.51 Long term (current) use of inhaled steroids; Z79.02 Long term (current) use of antithrombotics/antiplatelets; Z66 Do not resuscitate; E86.0 Dehydration
CPT/HCPCS: 36415; 36416; 71045; 71260; 73701; 74177; 74230; 80053; 80061; 81001; 82607; 82746; 82962; 83036; 83540; 83550; 83605; 83735; 84100; 84145; 84443; 85025; 85610; 86140; 86403; 87040; 87426; 87449; 87635; 87641; 87804; 92523; 92526; 92610; 92611; 94640; 94664; 96365; 96366; 96367; 96372; 96375; 99285; J0131; J1815; J1940; J2405; J2543; J3370; J3480; J3490; J7030; J7040; Q9967

== ENCOUNTER 2022-12-29 23:47 | Inpatient (IN) | payer MEDICARE, MEDICAID, SELFPAY ==
[2022-12-29 23:48] VITALS: PULSE 119; RESP 22; TEMP 37.9; O2SAT 95
--- NOTE | 2022-12-29 23:52 | ECG_ITS ---
[facility] Test Date: 2022-12-30 Pat Name: Guille Lucero Department: Room: Gender: Male [employer]: : 1960 Requested By: Yolie Herndon Order Number: [id number] Jericho MD: Dayo Huerta M.D. Measurements Intervals [place] Rate: 112 P: 31 [place]: 182 QRS: 53 QRSD: 89 T: -4 QT: 322 QTc: 441 Interpretive Statements SINUS TACHYCARDIA NONSPECIFIC ST & T-WAVE ABNORMALITY ABNORMAL RHYTHM ECG Compared to ECG 03/28/2021 11:54:59 Atrial fibrillation no longer present T-wave abnormality still present Electronically Signed On 12-30-2022 14:18:01 CDT by Dayo Huerta M.D. [id number]
--- NOTE | 2022-12-29 23:52 | XRR_ITS ---
PROCEDURE INFORMATION: Exam: XR Chest Exam date and time: 12/30/2022 12:06 AM Age: 62 years old Clinical indication: Cough and wheezing; Patient HX: Cough with wheezing. ; Additional info: SOB TECHNIQUE: Imaging protocol: Radiologic exam of the chest. Views: 1 view. COMPARISON: CR XR chest 1V portable [id number] 08/13/2022 1:13 PM FINDINGS: Lungs: Mild bilateral perihilar infiltrates. Pleural spaces: Unremarkable. No pleural effusion. No pneumothorax. Heart/Mediastinum: Stable heart size. Bones/joints: Unremarkable. XR/XR chest 1V portable [id number] IMPRESSION: Mild bilateral perihilar infiltrates. Correlate for pulmonary vascular congestion versus pneumonia.
[2022-12-29 23:59] LABS: Basophils # 0.1 10^3/uL (0.0-0.1); Eosinophils # 0.3 10^3/uL (0.0-0.8); Eosinophils % 3.5 %; Hematocrit 42.3 % (42.0-52.0); Hemoglobin 14.1 g/dL (11.7-16.6); Lymphocytes % 25.8 %; Mean Corpuscular HGB Conc 33.3 g/dL (30.0-36.0); Mean Corpuscular Hemoglobin 27.9 pg (28.0-34.0); Mean Corpuscular Volume 83.8 fl (80-94); Mean Platelet Volume 9.8 fL (7.4-10.4); Monocytes % 13.2 %; Neutrophils # 4.35 10^3/uL (1.8-7.7); Neutrophils % 55.9 %; Nucleated Red Blood Cells % 0 %; Platelet Count 241 10^3/cmm (130-400); Red Blood Count 5.05 10^6/uL (4.1-5.3); Red Cell Distribution Width 12.4 % (12.1-15.1); White Blood Count 7.8 10^3/uL (4.0-10.0)
[2022-12-30] VITALS (27 sets, daily range): BP systolic 109–156; BP diastolic 60–95; PULSE 85–119; RESP 12–38; TEMP 36.7–37.4; O2SAT 92–100
[2022-12-30] MEDS: ipratropium 0.5 mg/2.5 mL Neb INHALATION (00:06)
[2022-12-30] MEDS: albuterol 2.5 mg/3 mL Neb 5 MG INHALATION (00:06)
--- NOTE | 2022-12-30 00:08 | PC.NURSE ---
Pt on bedside pvc monitor. RT at bedside
[2022-12-30 00:16] LABS: INR 1.13 (0.8-1.2)
[2022-12-30] MEDS: acetaminophen 500 mg Tablet 1000 MG PO (00:19)
--- NOTE | 2022-12-30 00:21 | ED_ITS ---
HPI - SOB/Dyspnea General: Chief Complaint: Shortness of Breath/Dyspnea Stated Complaint: sob Time Seen by Provider: 12/29/22 23:50 Source: EMS Mode of arrival: EMS Limitations: physical limitation History of Present Illness: HPI Narrative: 62-year-old male has a history of cerebral palsy is here from [facility] does have a history of increased wheezing over the last 2 to 3 days he has been receiving breathing treatments at halfway. Per halfway he had increased wheezing and shortness of breath. Patient is 95% here on room air he does have wheezing and received treatment in route he had low-grade fevers no history is available from him due to his CP. Per patient's brother he has had a cough since Wednesday Review of Systems General: Reports: ROS unobtainable due to mental status PFSH ED PFSH: Medical History Atrial fibrillation Benign essential hypertension with target blood pressure below 140/90 Cerebral palsy COVID-19 care home resident Spastic hemiplegia Staphylococcus aureus bacteremia Social History Smoking and tobacco status: former smoker Physical Exam Const: COMMON NORMALS: negative for patient oriented x3 GENERAL APPEARANCE: in distress and ill appearing HENMT: COMMON NORMALS: normocephalic and atraumatic HEAD & SCALP: normocephalic and atraumatic Eye: COMMON NORMALS: Equal, round and reactive pupils present and EOMs intact bilaterally PUPIL: Yes Equal, round and reactive pupils present Neck/C-Spine: COMMON NORMALS: full ROM and supple Chest: COMMONS NORMALS: normal inspection of the chest and normal palpation of entire chest wall Resp: EFFORT & INSPECTION: Yes tachypneic and Yes respiratory distress AUSCULTATION: wheezes Cardio: COMMON NORMALS: regular rhythm and No murmurs present (Cardio) RATE: tachycardic RHYTHM: regular rhythm GI: COMMON NORMALS: Normal to inspection, nondistended, normoactive bowel sounds present, Soft to palpation, non-tender and no masses PALPATION: Yes Soft to palpation Extremity: COMMON NORMALS: normal to inspection and full ROM Neuro: COMMON NORMALS: no focal motor deficits; negative for patient oriented x3 Psych: COMMON NORMALS: cooperative; negative for mental status grossly normal Skin: COMMON NORMALS: no rashes or lesions noted and no wounds GENERAL SKIN EXAM: no rashes or lesions noted Course Vital Signs: Vital signs: Vital Signs Temperature 100.2 F H 12/29/22 23:48 Pulse Rate 97 12/30/22 01:09 Respiratory Rate 22 H 12/30/22 01:09 Blood Pressure 148/81 12/30/22 01:09 Pulse Oximetry 95 12/30/22 01:10 Oxygen Delivery Me thod BiPAP 12/30/22 01:10 Fraction of Inspir ed Oxygen 35 12/30/22 00:39 MDM - SOB/Dyspnea Medical Decision Making Patient presents with cough along with fever with respiratory distress x-ray shows pneumonia is likely causing his symptoms spoke to the hospitalist will admit at this time on IV antibiotics. Patient has been stable while here. Medical Records I reviewed the patient's medical records. Lab Data I reviewed the patient's lab results. 12/29/22 23:36 12/29/22 23:36 Labs/Radiology: Radiology Impressions Chest X-Ray 12/29/22 23:52 IMPRESSION: Mild bilateral perihilar infiltrates. Correlate for pulmonary vascular congestion versus pneumonia. Laboratory Results WBC 7.8 10^3/uL (4.0-10.0) 12/29/22 23:36 RBC 5.05 10^6/uL (4.1-5.3) 12/29/22 23:36 Hgb 14.1 g/dL (11.7-16.6) 12/29/22 23:36 Hct 42.3 % (42.0-52.0) 12/29/22 23:36 MCV 83.8 fl (80-94) 12/29/22 23:36 MCH 27.9 pg (28.0-34.0) L 12/29/22 23:36 MCHC 33.3 g/dL (30.0-36.0) 12/29/22 23:36 RDW 12.4 % (12.1-15.1) 12/29/22 23:36 Plt Count 241 10^3/cmm (130-400) 12/29/22 23:36 MPV 9.8 fL (7.4-10.4) 12/29/22 23:36 Neut % (Auto) 55.9 % 12/29/22 23:36 Lymph % (Auto) 25.8 % 12/29/22 23:36 Fisher % (Auto) 13.2 % 12/29/22 23:36 Eos % (Auto) 3.5 % 12/29/22 23:36 Baso % (Auto) 1.0 % 12/29/22 23:36 Neut # (Auto) 4.35 10^3/uL (1.8-7.7) 12/29/22 23:36 Lymph # (Auto) 2.0 10^3/uL (0.8-4.8) 12/29/22 23:36 Fisher # (Auto) 1.0 10^3/uL (0.2-0.9) H 12/29/22 23:36 Eos # (Auto) 0.3 10^3/uL (0.0-0.8) 12/29/22 23:36 Baso # (Auto) 0.1 10^3/uL (0.0-0.1) 12/29/22 23:36 Nucleated RBC % (auto) 0 % 12/29/22 23:36 Nucleated RBCs # 0.0 /100WBC 12/29/22 23:36 PT 14.90 SECONDS (12.1-14.9) 12/29/22 23:36 INR 1.13 (0.8-1.2) 12/29/22 23:36 Sodium 139 mmol/L (136-145) 12/29/22 23:36 Potassium 3.9 mmol/L (3.5-5.1) 12/29/22 23:36 Chloride 98 mmol/L (98-107) 12/29/22 23:36 Carbon Dioxide 25 mmol/L (22-29) 12/29/22 23:36 Anion Gap 19.9 (5-19) H 12/29/22 23:36 BUN 13 mg/dL (8-23) 12/29/22 23:36 Creatinine 0.9 mg/dL (0.7-1.2) 12/29/22 23:36 GFR Calculation 85.8 mL/min (90-130) L 12/29/22 23:36 Glucose 154 mg/dL (65-115) H 12/29/22 23:36 Calculated Osmolality 291 mOsm/kg (285-295) 12/29/22 23:36 Calcium 9.9 mg/dL (8.5-10.5) 12/29/22 23:36 Total Bilirubin 0.4 mg/dL (0.15-1.2) 12/29/22 23:36 AST 25 U/L (0-40) 12/29/22 23:36 ALT 30 U/L (0-41) 12/29/22 23:36 Alkaline Phosphatase 96 U/L (40-130) 12/29/22 23:36 NT-Pro-B Natriuret Pep 36 pg/mL (0-125) 12/29/22 23:36 Total Protein 7.8 g/dL (6.6-8.7) 12/29/22 23:36 Albumin 4.7 g/dL (3.5-5.2) 12/29/22 23:36 Globulin 3.1 g/dL (1.3-4.6) 12/29/22 23:36 SARS-CoV-2 Ag (Rapid) negative (Negative) 12/30/22 00:02 Discharge Plan Discharge Patient Disposition: Admitted As Inpatient Clinical Impression: Community acquired pneumonia Condition: Stable Coding Level of Care Code ED 2Nd Pressman for Ron Rueals
[2022-12-30 00:23] LABS: SARS Covid-2 Antigen negative (Negative)
[2022-12-30] MEDS: LORazepam 2 mg/mL INJ 1 mL 0.5 MG IVP (00:34)
[2022-12-30 00:35] LABS: ABG PCO2 39.5 mmHg (35-45); ABG PH Result 7.42 (7.35-7.45); Arterial Blood Gas Hematocrit 45.2 % (42-52); Blood Gas Allen Test Pos; Blood Gas Sample Site Radial, left; Blood Gas Sample Type Arterial; Carboxyhemoglobin 1.1 %THgb (0.4-20.1); HCO3 ABG 25.5 mmol/L (22-26); HGB O2 Sat 94.9 % (95-100); Methemoglobin 0.5 % (0.4-1.5); PO2 ABG 76.3 mmHg (80.0-100.0); Total Hemoglobin 14.8 g/dL (14-18)
[2022-12-30 00:35] LABS: Alanine Aminotransferase 30 U/L (0-41); Albumin Level 4.7 g/dL (3.5-5.2); Alkaline Phosphatase 96 U/L (40-130); Anion Gap 19.9 (5-19); Aspartate Amino Transferase 25 U/L (0-40); Blood Urea Nitrogen 13 mg/dL (8-23); Calcium 9.9 mg/dL (8.5-10.5); Carbon Dioxide 25 mmol/L (22-29); Chloride 98 mmol/L (98-107); Globulin 3.1 g/dL (1.3-4.6); Glomerular Filtration Rate 85.8 mL/min (90-130); Glucose 154 mg/dL (65-115); NT Pro B Type Natriuretic Pept 36 pg/mL (0-125); Osmolality Calculated 291 mOsm/kg (285-295); Potassium 3.9 mmol/L (3.5-5.1); Sodium 139 mmol/L (136-145); Total Bilirubin 0.4 mg/dL (0.15-1.2); Total Protein 7.8 g/dL (6.6-8.7)
[2022-12-30] MEDS: cefTRIAXone 1,000 MG in sodium chloride 0.9% (plus) 50 ML 100 MG IV (01:31)
[2022-12-30 01:42] LABS: Lactic Sepsis W/Reflex 3.3 mmol/L (0.5-2.2)
[2022-12-30] MEDS: azithromycin 500 MG in sodium chloride 0.9% 250 ML 250 MG IV (01:51)
--- NOTE | 2022-12-30 02:07 | CTR_ITS ---
PROCEDURE INFORMATION: Exam: CT Chest Without Contrast; Diagnostic Exam date and time: 12/30/2022 3:17 AM Age: 62 years old Clinical indication: Cough and shortness of breath; Patient HX: Cough with SOB. Bilateral perihilar infiltrate noted on cxr. TECHNIQUE: Imaging protocol: Diagnostic computed tomography of the chest without contrast. Total images: [id number] Radiation optimization: All CT scans at this facility use at least one of these dose optimization techniques: automated exposure control; mA and/or kV adjustment per patient size (includes targeted exams where dose is matched to clinical indication); or iterative reconstruction. REPORTING DATA: Count of CT and Cardiac NM exams in prior 12 months: This patient has received 2 known CTs and 0 known cardiac nuclear medicine studies in the 12 months prior to the current study. COMPARISON: CT chest abdpel w/*[id number] 08/10/2022 2:37 PM RADIATION DOSE METRICS: Total DLP (mGy-cm): 571.61 FINDINGS: Lungs: No acute focal pulmonary opacities are detected. Pleural spaces: Unremarkable. No pneumothorax. No pleural effusion. Heart: Unremarkable. No cardiomegaly. No pericardial effusion. Coronary arteries: Mild coronary arterial calcification, indicating the presence of coronary artery disease. Lymph nodes: Unremarkable. No enlarged lymph nodes. Vasculature: Unremarkable. No aortic aneurysm. Liver: Hepatic steatosis is evident. Bones/joints: Unremarkable. No acute fracture. Soft tissues: Unremarkable. Other findings: Examination is motion limited. CT/CT chest wo con [id number] IMPRESSION: 1. No acute focal pulmonary opacities are detected. 2. Mild coronary arterial calcification, indicating the presence of coronary artery disease. If the patient has associated symptoms recommend management as per chest pain guidelines. If the patient is asymptomatic consider reviewing modifiable cardiovascular risk factors and managing as per guidelines for primary prevention.
--- NOTE | 2022-12-30 02:10 | P.HP_ITS ---
Providers/Chief Complaint Admitting Physician: Baldemar Flannery MD Primary Care Provider: Neville Rodriguez DO Chief Complaint: sob History of Present Illness Guille Lucero is a 62 year old male with a past medical history of cerebral palsy, history of COVID-19, history of recurrent aspiration pneumonia, for which family allows him eating a regular diet for comfort and quality of life, currently at the senior living after he was hospitalized for severe COVID-19 pneumonia over a year ago, nonambulatory at baseline, requires assistance for activities of daily living, who presents to [facility] due to fevers. Currently patient's nonverbal, on BiPAP, family at bedside, tells me that patient does not complain, he will not tell you anything, even if he is sick. Family tells me that for the last week they have noticed that he has been coughing more, looking more short of breath, but he had no complaints, no known aspiration events, as per senior living, patient was noted to have low O2 sats,, having low-grade fevers, despite receiving breathing treatments, increasingly wheezing over the last few days so he was sent to [facility] for evaluation Review of Systems General: Reports: ROS unobtainable due to mental status Medications/Allergies Home Medications Medication Instructions Recorded Confirmed Last Taken Type cyclobenzaprine 10 mg tablet 10 mg PO BID 03/21/21 08/10/22 08/10/22 History omeprazole 20 mg capsule,delayed 20 mg PO DAILY 03/21/21 08/10/22 08/10/22 History release albuterol sulfate 90 mcg/actuation 2 puff inhalation Q4H.RESPIRATORY 04/04/21 08/10/22 Unknown Rx aerosol inhaler (Ventolin HFA) PRN Shortness Of Breath #1 g apixaban 5 mg tablet (Eliquis) 5 mg PO BID@0900,2100 #60 tabs 04/04/21 08/10/22 08/10/22 Rx baclofen 20 mg tablet 20 mg PO TID 07/07/21 08/10/22 08/10/22 History acetaminophen 325 mg tablet 325 mg PO Q6H PRN Pain 08/10/22 08/10/22 Unknown History bisacodyl 10 mg rectal suppository 10 mg AZ DAILY PRN Constipation 08/10/22 08/10/22 Unknown History bisacodyl 5 mg tablet,delayed 5 mg PO DAILY PRN Constipation 08/10/22 08/10/22 Unknown History release (Dulcolax (bisacodyl)) chlorthalidone 25 mg tablet 25 mg PO DAILY 08/10/22 08/10/22 08/10/22 History magnesium hydroxide 400 mg/5 mL 30 ml PO DAILY PRN Constipation 08/10/22 08/10/22 Unknown History oral suspension (Milk of Magnesia) sodium phosphates 19 gram-7 118 ml AZ DAILY PRN Constipation 08/10/22 08/10/22 Unknown History gram/118 mL enema (Fleet Enema) albuterol sulfate 0.63 mg/3 mL 0.63 mg (3 mL) inhalation Q8H PRN 08/14/22 Unknown Rx solution for nebulization shortness of breath or wheezing #90 mL amoxicillin 500 mg-potassium 1 tab PO BID #10 tabs 08/14/22 Unknown Rx clavulanate 125 mg tablet (Augmentin) dextromethorphan-guaifenesin 10 5 ml PO Q4H PRN Cough #100 mL 08/14/22 Unknown Rx mg-100 mg/5 mL oral syrup Allergies Allergy/AdvReac Type Severity Reaction Status Date / Time No Known Allergies Allergy Unverified 12/29/22 23:57 PFSH Acute PFSH: Medical History Atrial fibrillation Benign essential hypertension with target blood pressure below 140/90 Cerebral palsy COVID-19 [facility] resident Spastic hemiplegia Staphylococcus aureus bacteremia Social History Smoking and tobacco status: former smoker Vitals/I&O/Wt Last Vital Signs Temp 99.3 F 12/30/22 01:52 Pulse 93 12/30/22 01:52 Resp 23 H 12/30/22 01:52 BP 156/92 12/30/22 01:52 Pulse Ox 97 12/30/22 01:52 O2 Del Method BiPAP 12/30/22 01:52 FiO2 35 12/30/22 00:39 12/29/22 12/29/22 12/30/22 14:59 22:59 06:59 Intake Total 50 / 50 Balance 50 / 50 Weight last 48 hrs Weight 83.461 kg Physical Exam Const: COMMON NORMALS: no acute distress EXAM LIMITATIONS: altered mental status ORIENTATION/CONSCIOUSNESS: Yes awake; not oriented to person, not oriented to place and not oriented to time HENMT: COMMON NORMALS: normocephalic HEAD & SCALP: normocephalic Eye: COMMON NORMALS: Equal, round and reactive pupils present Resp: COMMON NORMALS: normal respiratory effort, No retractions and No use of accessory muscles AUSCULTATION: crackles and wheezes Cardio: COMMON NORMALS: regular rate, regular rhythm, S1 normal heart sound present and S2 normal heart sound present RATE: regular rate RHYTHM: regular rhythm HEART SOUNDS: S1 normal heart sound present and S2 normal heart sound present GI: COMMON NORMALS: Normal to inspection, nondistended, normoactive bowel sounds present, Soft to palpation and non-tender Extremity: COMMON NORMALS: no pedal edema NARRATIVE EXTREMITY EXAM: Contracture right upper extremity OTHER: Does not follow testing Data 12/29/22 23:36 12/29/22 23:36 Micro: Microbiology 12/30/22 01:16 Blood Culture - Preliminary Blood SPECIMEN COLLECTED 12/30/22 01:13 Blood Culture - Preliminary Blood SPECIMEN COLLECTED Other data: EKG reviewed by me shows sinus tachycardia Chest x-ray reviewed by me shows bilateral perihilar infiltrates Blood work was reviewed by me A&P Assessment and plan (1) Acute respiratory failure with hypoxia: (2) Aspiration pneumonia: (3) Acute encephalopathy: (4) Lactic acidosis: (5) Sepsis: (6) Ataxic cerebral palsy: Plan Acute hypoxic respiratory failure -Secondary to aspiration pneumonia -With evidence of sepsis, evidence of endorgan dysfunction given lactic acidosis, acute encephalopathy, evidence of pneumonia chest x-ray -With lactic acidosis -With acute encephalopathy Plan -Continue BiPAP -Monitor respiratory status closely -Broaden antibiotic therapy to vancomycin, Zosyn -Gentle IV fluids -DuoNebs as needed -Continue Decadron -Sputum culture, blood cultures, respiratory viral panel -Keep n.p.o. for now, until mentation improves -CT of the chest -As per discussion with patient's guardian, patient is DNR/DNI -As per discussion with patient's guardian, they do not want him to be on a dysphagia diet, they let him eat whatever he wants, with aspiration precautions, they want to emphasize a quality of life -Lovenox for DVT prophylaxis Attestations Medical Necessity Statement*: Patient requires hospitalization, inpatient, greater than 2 midnights, for sepsis, acute encephalopathy, aspiration pneumonia, lactic acidosis, acute hypoxic respiratory failure Coding Level of Care Code 73396 Diagnoses Acute respiratory failure with hypoxia J96.01 Aspiration pneumonia J69.0 Acute encephalopathy G93.40 Lactic acidosis E87.20 Sepsis A41.9 Ataxic cerebral palsy G80.4
--- NOTE | 2022-12-30 02:28 | PC.NURSE ---
Patient is oriented to person and place. He is able to tell me the month but not the year.
--- NOTE | 2022-12-30 02:29 | ECG_ITS ---
[facility] Test Date: 2022-12-30 Pat Name: Guille Lucero Department: Room: 270 Gender: Male Criminal Defense Attorney: : 1960 Requested By: Baldemar Flannery Order Number: [id number] Jericho MD: Dayo Huerta M.D. Measurements Intervals [place] Rate: 91 P: 63 NV: 198 QRS: 78 QRSD: 101 T: 49 QT: 366 QTc: 452 Interpretive Statements SINUS RHYTHM INTERPRETATION BASED ON A DEFAULT AGE OF 40 YEARS Compared to ECG 12/30/2022 00:00:38 Sinus tachycardia no longer present T-wave abnormality no longer present Electronically Signed On 12-30-2022 14:18:30 CDT by Dayo Huerta M.D. [id number] f
[2022-12-30] MEDS: dextrose 5%-sod chloride 0.9% 1,000 ML 75 ML IV ×2 (02:47→16:52)
[2022-12-30] MEDS: pantoprazole 40 mg SDV IVP (02:47)
[2022-12-30 03:01] LABS: Troponin(5th) Baseline 13 ng/L (0-15)
--- NOTE | 2022-12-30 03:05 | PC.PHAR ---
Pharmacokinetic dosing service Date: 12/30/21 Time: 305 Objective: Patient: Guille Lucero Floor: 270-1 Age: 62 yo Serum creatinine: 0.9 mg/dL Height: 66.0 Inches Weight (kg): 88.36 Diagnosis: Relevant medical/social history: Cultures and sensitivities: Other labs: Assessment: IBW (kg): 63.80 Dosing wt(kg): 88.36 Estimated Creatinine clearance (ml/min): 77.8 CRCL method: Cockcroft and Gault using ibw(default). Drug selected: Vancomycin Loading dose (mg): 0 Vd (liters): 79.5 (factor used: 0.9 L/kg) Anderson (hr-1): 0.069 Half life (hrs): 10.05 Recommended dose: 1500 mg Interval: 12 hrs Infusion time (hrs): 1.5 Predicted peak (mcg/mL): 31.8 Predicted trough (mcg/mL): 15.41 Total body weight is being used for vancomycin dosing. Renal function is stable [ ] /unstable [ ] Recommendations: Give Vancomycin 1500 mg q 12 hrs with an expected Cpeak of 31.8 mcg/ml and an expected Ctrough of 15.41 mcg/ml Renal dosing of other antibiotics (review renal dosing of other medications and list guidelines here): Thank you for the consult, will continue to follow. Signature: Fernanda Sev[facility]
[2022-12-30 03:07] LABS: Reflex Lactate Order REFLEX LACTIC ORDERD
[2022-12-30 03:08] LABS: NT Pro B Type Natriuretic Pept 36 pg/mL (0-125); Procalcitonin 0.07 ng/mL (0-0.5)
[2022-12-30 03:10] LABS: Thyroid Stimulating Hormone 0.63 uIU/mL (0.27-4.20)
--- NOTE | 2022-12-30 03:44 | PC.NURSE ---
Legal guardian Yadi Cueva at bedside states that the patient has to [facility] foods at the [facility] due to difficulty swallowing. She states that he swallows pills whole with no issues. She states that the patient will needs assistance with meals and needs to be sat up high in the bed to swallow. She states the patient is non-ambulatory.
[2022-12-30] MEDS: vancomycin 1,500 MG/300 ML PIGGYBACK 200 MG IV ×2 (03:56→16:44)
[2022-12-30 04:47] LABS: Adenovirus Not Detected (NOT DETECT); Chlamydia Pneumoniae Not Detected (NOT DETECT); Coronavirus 229E,HKU1,NL63,OC4 Not Detected (NOT DETECT); Human Metapneumovirus Not Detected (NOT DETECT); Human Rhinovirus/Enterovirus Not Detected (NOT DETECT); Influenza A Not Detected (NOT DETECT); Influenza A H1 Not Detected (NOT DETECT); Influenza A H1-2009 Not Detected (NOT DETECT); Influenza A H3 Not Detected (NOT DETECT); Influenza B Not Detected (NOT DETECT); Mycoplasma Pneumoniae Not Detected (NOT DETECT); Parainfluenza Virus Type 1 Not Detected (NOT DETECT); Parainfluenza Virus Type 2 Not Detected (NOT DETECT); Parainfluenza Virus Type 3 Detected (NOT DETECT); Parainfluenza Virus Type 4 Not Detected (NOT DETECT); Respiratory Syncytial Virus A Not Detected (NOT DETECT); Respiratory Syncytial Virus B Not Detected (NOT DETECT); SARS-COV-2 Not Detected (NOT DETECT)
[2022-12-30] MEDS: ipratropium-albuterol 3 mL Neb INHALATION ×6 (04:58→23:27)
--- NOTE | 2022-12-30 05:12 | ECG_ITS ---
[facility] Test Date: 2022-12-30 Pat Name: Guille Lucero Department: Room: 270 Gender: Male Inside Wirer: : 1960 Requested By: Baldemar Flannery Order Number: [id number] Jericho MD: Dayo Huerta M.D. Measurements Intervals [place] Rate: 88 P: 38 MS: 191 QRS: 60 QRSD: 103 T: 38 QT: 374 QTc: 454 Interpretive Statements SINUS RHYTHM INTERPRETATION BASED ON A DEFAULT AGE OF 40 YEARS Compared to ECG 12/30/2022 02:29:50 No significant changes Electronically Signed On 12-30-2022 14:24:20 CDT by Dayo Huerta M.D. [id number] f
[2022-12-30 05:25] LABS: Troponin 5 2HR 13.27 ng/L (0-15)
[2022-12-30 05:30] LABS: Lactic Acid level (Lactate) 2.3 mmol/L (0.5-2.2); Troponin 5 2HR Delta 0.27 ABS# (0-10)
[2022-12-30] MEDS: piperacillin-tazobactam 3.375 GM in sodium chloride 0.9% (plus) 50 ML IV ×3 (05:31→20:03)
--- NOTE | 2022-12-30 06:23 | PC.NURSE ---
No SCD pump available at this time. Unable to place patient on SCDs.
[2022-12-30 08:18] LABS: Troponin 5 6HR 8.69 ng/L (0-15)
[2022-12-30 08:40] LABS: Troponin 5 6HR Delta -4.31 ng/L (0-12)
[2022-12-30] MEDS: apixaban 5 mg Tablet PO ×2 (10:24→20:03)
[2022-12-30 11:20] LABS: Vitamin B12 331 pg/mL (232-1245)
[2022-12-30] MEDS: dexamethasone 10 mg/mL INJ 6 MG IVP (11:41)
[2022-12-30 12:16] LABS: Folate Level 15.9 ng/mL (4.5-32.2)
[2022-12-30 12:40] LABS: Iron 50 ug/dL (59-158)
[2022-12-30 12:45] LABS: Percent Saturation 13.8 % (20-50); Total Iron Binding Capacity 360 mcg/dl; Unsaturated Iron Binding 310 ug/dL (112-347)
--- NOTE | 2022-12-30 15:18 | PM.CCNAC ---
Critical Care Event Note Admitted overnight. H&P and labs appreciated. Today morning patient seen laying comfortably in bed with family at bedside. Patient at his baseline mentation. Saturating well on 2 L but having bouts of cough while eating. On review of chart patient has a history of aspiration pneumonia and as per goals set by family is to eat regular food knowing that he is always at risk of aspiration because quality of life is more important quality. Further goals of care done in detail with the family and DPOA. We discussed that unfortunately patient is always at a risk of aspiration pneumonia and as per goals he is not to change his diet as per the speech therapy or MBS evaluation and continue to eat regular diet he will always get a risk of aspiration pneumonia and respiratory failure. Discussed every time he comes to the hospital for aspiration pneumonia will be treating temporarily as he cannot take the reason for recurrent aspirations awake. DPOA verbalizes understanding and states she had talked about in detail with the family and they have decided to change the goals to be 30 does not get admitted to the hospital again and again because of aspiration. Discussed in detail with the DPOA regarding hospice with which it would mean that he would continue his active treatment but if and when he gets sick again they will not bring him to the hospital to treat for aspiration pneumonitis. DPOA verbalizes understanding and is agreeable Case management alerted. No more blood work. Follow-up continue with vancomycin and Zosyn. Will plan to discharge on oral antibiotics once hospital set up to finish a 5-day course. The high probability of a clinically significant, sudden or life threatening deterioration of the patient's [goals of care, pulmonary] system(s) required my full and direct attention, intervention and personal management. The critical care time is as shown. This time is in addition to time spent performing any reported procedures but includes the following: [x] Data and vital sign review and interpretation [x] Patient assessment, examination and intervention [x] Documentation [x] Medication orders and management Critical Care Time Code activated: No Critical Care Time (min): 60 Coding Level of Care Code Acute Code for Chg Fwd
--- NOTE | 2022-12-30 19:14 | PC.NURSE ---
Addendum entered by Radha Alfaro RN 12/30/22 19:18: See Flexeril and Robitussin orders. Also, regular diet ordered. Original Note: Patient is asking for Flexeril that he takes at the intermediate. He is also asking for something for his cough. Dr. Chou notified.
[2022-12-30] MEDS: budesonide 0.5 mg/2 mL Neb INHALATION (19:23)
[2022-12-30] MEDS: cyclobenzaprine 10 mg Tablet PO (20:03)
[2022-12-30] MEDS: guaiFENesin-dextromethorphan UDC 10 mL PO (20:03)
--- NOTE | 2022-12-30 21:10 | PC.NURSE ---
Addendum entered by Radha Alfaro RN 12/30/22 21:16: Due to persistent coughing, patient placed back on NPO diet. Patient only had one bite of jello approximately 8 pm. Original Note: Upon bedside report, patient coughing. Family at bedside said he has been doing that for a couple of hours. Family asked if patient ate or drank prior to the coughing started and she stated no. Patient given Robitussin with no improvement in cough. Patient states he feels like something is stuck in his throat. Dr. Flannery notified of heart rate 120s ST and earlier in the day was 80s. Dr. Flannery notified that patient is persistently coughing and no improvement with Robitussin. Tessalon Estela PRN ordered.
--- NOTE | 2022-12-30 21:29 | PC.NURSE ---
Family at bedside assisted patient with urinal and emptied it. Unable to measure urine output. Family member states it was a lot.
[2022-12-30] MEDS: benzonatate 100 mg Capsule PO (21:31)
[2022-12-31] VITALS (8 sets, daily range): BP systolic 137–155; BP diastolic 76–99; PULSE 98–118; RESP 15–22; TEMP 36.7–36.8; O2SAT 95–98
[2022-12-31] MEDS: vancomycin 1,500 MG/300 ML PIGGYBACK 200 MG IV (02:10)
[2022-12-31] MEDS: pantoprazole 40 mg SDV IVP (02:10)
[2022-12-31] MEDS: dextrose 5%-sod chloride 0.9% 1,000 ML 75 ML IV (02:15)
--- NOTE | 2022-12-31 02:26 | PC.NURSE ---
Patient's coughing improved after Tessalon Estela. Patient placed back on regular diet for breakfast.
--- NOTE | 2022-12-31 02:38 | PC.PHAR ---
Vancomycin Trough scheduled for 12/31 1400, please hold 1500 dose until drawn. Will continue to monitor Thank you, Fernanda Sevilla [facility]
[2022-12-31] MEDS: ipratropium-albuterol 3 mL Neb INHALATION ×3 (04:11→12:05)
[2022-12-31] MEDS: piperacillin-tazobactam 3.375 GM in sodium chloride 0.9% (plus) 50 ML IV (04:14)
[2022-12-31] MEDS: benzonatate 100 mg Capsule PO (04:15)
[2022-12-31] MEDS: acetaminophen 325 mg Tablet 650 MG PO ×2 (04:15→14:46)
[2022-12-31] MEDS: budesonide 0.5 mg/2 mL Neb INHALATION (08:34)
--- NOTE | 2022-12-31 09:29 | P.DS_ITS ---
Discharge Providers Date of Admission: 12/30/22 01:12 Date of Discharge: December 31, 2022 Attending Provider at Admission: Baldemar Flannery MD Attending Provider at Discharge: Omar Chou MD Primary Care Provider: Neville Rodriguez DO Diagnoses at Discharge Discharge Diagnosis (1) Acute respiratory failure with hypoxia: Status: Acute (2) Aspiration pneumonia: Status: Acute (3) Acute encephalopathy: Status: Acute (4) Lactic acidosis: Status: Acute (5) Sepsis: Status: Acute (6) Ataxic cerebral palsy: Status: Acute Reason for Visit Reason for Visit: sob Brief History: History as per HPI: Guille Lucero is a 62 year old male with a past medical history of cerebral palsy, history of COVID-19, history of recurrent aspiration pneumonia, for which family allows him eating a regular diet for comfort and quality of life, currently at the senior living after he was hospitalized for severe COVID-19 pneumonia over a year ago, nonambulatory at baseline, requires assistance for activities of daily living, who presents to [facility] due to fevers.? Currently patient's nonverbal, on BiPAP, family at bedside, tells me that patient does not complain, he will not tell you anything, even if he is sick.? Family tells me that for the last week they have noticed that he has been coughing more, looking more short of breath, but he had no complaints, no known aspiration events, as per senior living, patient was noted to have low O2 sats,, having low-grade fevers, despite receiving breathing treatments, increasingly wheezing over the last few days so he was sent to [facility] for evaluation Hospital Course Hospital Course Patient was admitted to the hospital for further evaluation and management of hypoxia in setting of aspiration pneumonia. He was started on broad-spectrum antibiotics. Given his goals of eating regular food even though he is at high risk of aspiration at baseline along with DNR/DNI further goals of care in moderate detail with patient the DPOA at bedside. Option discussed for continuing current treatment and repeat injection ongoing that if he continues to have regular food he can worsen or have reinfection at any point even on discharge versus continuing the regular diet as per goals knowing that his baseline concern or reason for aspiration pneumonia would not to go away given her baseline cerebral palsy and go ahead and set up hospice family chose hospice. Patient will be discharged on oral antibiotics in hemodynamically stable condition with hospice in place Physical Exam Narrative: Deferred given hospice status. Appears comfortable Discharge Data Studies Completed and Pending Completed Studies During Hospitalization Category Date Time Status CT chest wo con [id number] Routine Cat Scan 12/30/22 02:07 Completed XR chest 1V portable [id number] Stat Exams 12/29/22 23:52 Completed Pending at discharge Category Date Time Status Blood Culture Stat Lab 12/30/22 01:16 Results Sputum Culture and Gram Stain Stat Lab 12/30/22 02:07 Uncollected Vancomycin Trough Timed Lab 12/31/22 14:00 Ordered Radiology Impressions Chest X-Ray 12/29/22 23:52 IMPRESSION: Mild bilateral perihilar infiltrates. Correlate for pulmonary vascular congestion versus pneumonia. Chest CT 12/30/22 02:07 IMPRESSION: 1. No acute focal pulmonary opacities are detected. 2. Mild coronary arterial calcification, indicating the presence of coronary artery disease. If the patient has associated symptoms recommend management as per chest pain guidelines. If the patient is asymptomatic consider reviewing modifiable cardiovascular risk factors and managing as per guidelines for primary prevention. Laboratory Results WBC 7.8 10^3/uL (4.0-10.0) 12/29/22 23:36 RBC 5.05 10^6/uL (4.1-5.3) 12/29/22 23:36 Hgb 14.1 g/dL (11.7-16.6) 12/29/22 23:36 Hct 42.3 % (42.0-52.0) 12/29/22 23:36 MCV 83.8 fl (80-94) 12/29/22 23:36 MCH 27.9 pg (28.0-34.0) L 12/29/22 23:36 MCHC 33.3 g/dL (30.0-36.0) 12/29/22 23:36 RDW 12.4 % (12.1-15.1) 12/29/22 23:36 Plt Count 241 10^3/cmm (130-400) 12/29/22 23:36 MPV 9.8 fL (7.4-10.4) 12/29/22 23:36 Neut % (Auto) 55.9 % 12/29/22 23:36 Lymph % (Auto) 25.8 % 12/29/22 23:36 [place] % (Auto) 13.2 % 12/29/22 23:36 Eos % (Auto) 3.5 % 12/29/22 23:36 Baso % (Auto) 1.0 % 12/29/22 23:36 Neut # (Auto) 4.35 10^3/uL (1.8-7.7) 12/29/22 23:36 Lymph # (Auto) 2.0 10^3/uL (0.8-4.8) 12/29/22 23:36 [place] # (Auto) 1.0 10^3/uL (0.2-0.9) H 12/29/22 23:36 Eos # (Auto) 0.3 10^3/uL (0.0-0.8) 12/29/22 23:36 Baso # (Auto) 0.1 10^3/uL (0.0-0.1) 12/29/22 23:36 Nucleated RBC % (auto) 0 % 12/29/22 23:36 Nucleated RBCs # 0.0 /100WBC 12/29/22 23:36 PT 14.90 SECONDS (12.1-14.9) 12/29/22 23:36 INR 1.13 (0.8-1.2) 12/29/22 23:36 Specimen Type Arterial 12/30/22 00:23 Sample Site Radial, left 12/30/22 00:23 ABG pH 7.42 (7.35-7.45) 12/30/22 00:23 ABG pCO2 39.5 mmHg (35-45) 12/30/22 00:23 ABG pO2 76.3 mmHg (80.0-100.0) L 12/30/22 00:23 ABG HCO3 25.5 mmol/L (22-26) 12/30/22 00:23 ABG Base Excess 1.0 mmol/L (-2.0-2.0) 12/30/22 00:23 Bubba Test Pos 12/30/22 00:23 Hematocrit 45.2 % (42-52) 12/30/22 00:23 Hgb O2 Saturation 94.9 % (95-100) L 12/30/22 00:23 Carboxyhemoglobin 1.1 %THgb (0.4-20.1) 05/03/23 00:23 Methemoglobin 0.5 % (0.4-1.5) 12/30/22 00:23 Total Hemoglobin 14.8 g/dL (14-18) 12/30/22 00:23 O2 Delivery Device None 12/30/22 00:23 FiO2 21.0 % 12/30/22 00:23 Belt Maker Helper ID Shaquille 12/30/22 00:23 Sodium 139 mmol/L (136-145) 12/29/22 23:36 Potassium 3.9 mmol/L (3.5-5.1) 12/29/22 23:36 Chloride 98 mmol/L (98-107) 12/29/22 23:36 Carbon Dioxide 25 mmol/L (22-29) 12/29/22 23:36 Anion Gap 19.9 (5-19) H 12/29/22 23:36 BUN 13 mg/dL (8-23) 12/29/22 23:36 Creatinine 0.9 mg/dL (0.7-1.2) 12/29/22 23:36 GFR Calculation 85.8 mL/min (90-130) L 12/29/22 23:36 Glucose 154 mg/dL (65-115) H 12/29/22 23:36 Calculated Osmolality 291 mOsm/kg (285-295) 12/29/22 23:36 Lactic Acid 3.3 mmol/L (0.5-2.2) H 12/30/22 01:13 Lactic Acid (Sepsis) 2.3 mmol/L (0.5-2.2) H 12/30/22 04:21 Calcium 9.9 mg/dL (8.5-10.5) 12/29/22 23:36 Iron 50 ug/dL (59-158) L 12/30/22 07:32 TIBC 360 mcg/dl 12/30/22 07:32 % Saturation 13.8 % (20-50) L 12/30/22 07:32 Unsat Iron Binding 310 ug/dL (112-347) 12/30/22 07:32 Total Bilirubin 0.4 mg/dL (0.15-1.2) 12/29/22 23:36 AST 25 U/L (0-40) 12/29/22 23:36 ALT 30 U/L (0-41) 12/29/22 23:36 Alkaline Phosphatase 96 U/L (40-130) 12/29/22 23:36 Troponin T Baseline 13 ng/L (0-15) 12/30/22 01:13 Troponin T 120 Minute 13.27 ng/L (0-15) 12/30/22 04:21 Delta Troponin T 0.27 ABS# (0-10) 12/30/22 04:21 Troponin T Hi Sens 6Hr 8.69 ng/L (0-15) 12/30/22 07:32 Troponin T Hi Sens 6Hr Delta -4.31 ng/L (0-12) L 12/30/22 07:32 NT-Pro-B Natriuret Pep 36 pg/mL (0-125) 12/30/22 01:13 Total Protein 7.8 g/dL (6.6-8.7) 12/29/22 23:36 Albumin 4.7 g/dL (3.5-5.2) 12/29/22 23:36 Globulin 3.1 g/dL (1.3-4.6) 12/29/22 23:36 Vitamin B12 331 pg/mL (232-1245) 12/30/22 07:32 Folate 15.9 ng/mL (4.5-32.2) 12/30/22 01:13 Procalcitonin 0.07 ng/mL (0-0.5) 12/30/22 01:13 TSH 0.63 uIU/mL (0.27-4.20) 12/30/22 01:13 Nasal Influ A H1 2008 PCR Not detected (NOT DETECT) 12/30/22 03:00 Adenovirus (PCR) Not detected (NOT DETECT) 12/30/22 03:00 C. pneumoniae DNA (PCR) Not detected (NOT DETECT) 12/30/22 03:00 Coronavirus 229E (PCR) Not detected (NOT DETECT) 12/30/22 03:00 Human Metapneumovir PCR Not detected (NOT DETECT) 12/30/22 03:00 Influenza A (H1) PCR Not detected (NOT DETECT) 12/30/22 03:00 Influenza A (H3) PCR Not detected (NOT DETECT) 12/30/22 03:00 Influenza Type A (PCR) Not detected (NOT DETECT) 12/30/22 03:00 Influenza Type B (PCR) Not detected (NOT DETECT) 12/30/22 03:00 M. pneumoniae (PCR) Not detected (NOT DETECT) 12/30/22 03:00 Parainfluenza 1 (PCR) Not detected (NOT DETECT) 12/30/22 03:00 Parainfluenza 2 (PCR) Not detected (NOT DETECT) 12/30/22 03:00 Parainfluenza 3 (PCR) Detected (NOT DETECT) A 12/30/22 03:00 Parainfluenza 4 (PCR) Not detected (NOT DETECT) 12/30/22 03:00 RSV Type A (PCR) Not detected (NOT DETECT) 12/30/22 03:00 RSV Type B (PCR) Not detected (NOT DETECT) 12/30/22 03:00 Entero/Rhino (PCR) Not detected (NOT DETECT) 12/30/22 03:00 SARS-CoV-2 (PCR) Not detected (NOT DETECT) 12/30/22 03:00 SARS-CoV-2 Ag (Rapid) negative (Negative) 12/30/22 00:02 Vitals Last Vital Signs Temp 98.2 F 12/31/22 08:00 Pulse 112 H 12/31/22 08:48 Resp 22 H 12/31/22 08:00 BP 137/76 12/31/22 08:00 Pulse Ox 95 12/31/22 08:00 O2 Del Method Nasal Cannula 12/31/22 08:00 O2 Flow Rate 2 12/31/22 08:00 FiO2 2 12/31/22 04:00 Discharge Plan Discharge Patient Disposition: Hospice - Medical Facility Condition: Stable Prescriptions: New dextromethorphan-guaifenesin 10-100 mg/5 mL Syrup 10 ml PO Q4H PRN (Reason: Cough) Qty: 300 0RF Combivent Respimat 20-100 mcg/actuation mist 1 puff inhalation Q6H Qty: 4 0RF Augmentin 500-125 mg tablet 1 tab PO BID Qty: 10 0RF levofloxacin 750 mg tablet 750 mg PO Q24H 5 Days Qty: 5 0RF Continued baclofen 20 mg tablet 20 mg PO TID cyclobenzaprine 10 mg tablet 10 mg PO BID Eliquis 5 mg Tablet 5 mg PO BID@0900,2100 Qty: 60 0RF Tylenol 325 mg Tablet 650 mg PO QID PRN (Reason: Pain) omeprazole 10 mg Capsule,Delayed Release(Dr/Ec) 10 mg PO DAILY lisinopril 10 mg Tablet 10 mg PO DAILY losartan 25 mg Tablet 25 mg PO DAILY metoprolol tartrate 50 mg Tablet 50 mg PO BID chlorthalidone 25 mg Tablet 25 mg PO DAILY magnesium hydroxide [Milk of Magnesia] 400 mg/5 mL Suspension 30 ml PO DAILY PRN (Reason: Constipation) bisacodyl 10 mg Suppository 10 mg [place] DAILY PRN (Reason: Constipation) Fleet Enema 19-7 gram/118 mL Enema 118 ml [place] DAILY PRN (Reason: Constipation) bisacodyl [Dulcolax (bisacodyl)] 5 mg Tablet,Delayed Release (Dr/Ec) 5 mg PO DAILY PRN (Reason: Constipation) albuterol sulfate 0.63 mg/3 mL solution for nebulization 0.63 mg inhalation Q8H PRN (Reason: shortness of breath or wheezing) Qty: 90 0RF Discharge Orders: Discharge Order (Routine); Ordered 12/31/22 Ordered By: Omar Chou Referrals: Neville Rodriguez DO [Primary Care Provider] - Discharge Diet: Regular Discharge Activity: Resume usual activity Patient Instructions: Amoxicillin/Clavulanate Potassium (By mouth), Levofloxacin (By mouth), Ipratropium/Albuterol (By breathing), Hospice Care (GEN), Opioid Safety Activity Restrictions/Additional Instructions: Hospice. Augmentin and Levaquin for next 5 days. Robitussin as needed Discharge Attestations Time Spent in Discharge Care*: greater than 30 min Specific Discharge Activities: educating and/or supporting family/caregiver, discussing with pcp/other providers, discussing with child support case officer/social workers/dc planners, documenting/other paperwork and evaluating patient/reviewing data Status at Discharge: Cognitive status at discharge: mildly impaired cognition , Behavioral status at discharge: cooperative , Functional status at [facility]: bed bound , Overall status at discharge: patient is back to baseline Quality Metrics Clinical Quality Measures [ No reported AMI, CVA or VTE this stay] Coding Level of Care Code 48036 Total time (in minutes) for Discharge: 45 Diagnoses Acute respiratory failure with hypoxia J96.01 Aspiration pneumonia J69.0 Acute encephalopathy G93.40 Lactic acidosis E87.20 Sepsis A41.9 Ataxic cerebral palsy G80.4
[2022-12-31] MEDS: apixaban 5 mg Tablet PO (10:00)
[2022-12-31] MEDS: dexamethasone 10 mg/mL INJ 6 MG IVP (10:00)
[2022-12-31 10:34] LABS: SARS Covid-2 Antigen negative (Negative)
--- NOTE | 2022-12-31 14:24 | PC.NURSE ---
This nurse contacted [facility] and gave report to JOHANA Hodgson. All questions/concerns were addressed.
[2022-12-31] MEDS: cyclobenzaprine 10 mg Tablet PO (14:42)
== END 2022-12-31 15:29 | disposition hospice, home (50) | DRG 177 ==
LOC: ER 12-30 01:10 → MEDSURG 12-30 01:41
PROVIDERS: Admitting Provider Family Medicine; Emergency Provider Emergency Medicine; PCP Internal Medicine; Visit Provider Student in an Organized Health Care Education/Training Program
DX: J69.0 Pneumonitis due to inhalation of food and vomit (principal); J96.01 Acute respiratory failure with hypoxia; E87.20 Acidosis, unspecified; G80.2 Spastic hemiplegic cerebral palsy; G93.40 Encephalopathy, unspecified; I48.91 Unspecified atrial fibrillation; I10 Essential (primary) hypertension; Z66 Do not resuscitate; Z79.01 Long term (current) use of anticoagulants; Z79.51 Long term (current) use of inhaled steroids; Z86.16 Personal history of COVID-19; Z87.01 Personal history of pneumonia (recurrent); Z87.891 Personal history of nicotine dependence
CPT/HCPCS: 36415; 36600; 71045; 71250; 80053; 82607; 82746; 82805; 83540; 83550; 83605; 83880; 84145; 84443; 84484; 85025; 85610; 87040; 87426; 87486; 87581; 87633; 93005; 94640; 94660; 96374; 99285; C9113; J0456; J0696; J1100; J2060; J2543; J2930; J3370; J7042; J7050; J7613; J7626; J7644

== ENCOUNTER 2024-03-02 12:40 | Emergency (ER) | payer MEDICARE, MEDICAID, SELFPAY ==
[2024-03-02] VITALS (7 sets, daily range): BP systolic 135–154; BP diastolic 80–99; PULSE 123–140; RESP 16–18; TEMP 37.4–37.7; O2SAT 92–96
--- NOTE | 2024-03-02 13:05 | ED_ITS ---
HPI - Abdominal Pain 2 General: Chief Complaint: Abdominal Pain Stated Complaint: bowel obstruction Time Seen by Provider: 03/02/24 12:45 Source: family Mode of arrival: EMS History of Present Illness: 61-year-old male presents emergency room via EMS. According to EMS report intermediate report he has been constipated abdominal pain and x-rays abdomen showed ileus redirected to the emergency room he has had small bowel movement yesterday. He is on hospice. Later in the visit family member was at the bedside they would not want him withdrawn from hospice or admitted to the hospital MD elicited complaint: abdominal pain Review of Systems 2 General: Reports: ROS unobtainable due to mental status PFSH ED 2 PFSH: Medical History correction resident Spastic hemiplegia Cerebral palsy Atrial fibrillation Staphylococcus aureus bacteremia Benign essential hypertension with target blood pressure below 140/90 COVID-19 Social History Smoking and tobacco/nicotine status: former use of tobacco/nicotine Physical Exam 2 Const: COMMON NORMALS: no acute distress GENERAL APPEARANCE: cooperative and comfortable ORIENTATION/CONSCIOUSNESS: Yes awake HENMT: COMMON NORMALS: normocephalic, atraumatic and hearing grossly normal bilaterally HEAD & SCALP: normocephalic and atraumatic Resp: COMMON NORMALS: normal respiratory effort, No retractions, No use of accessory muscles and clear to auscultation bilaterally AUSCULTATION: clear to auscultation bilaterally Cardio: COMMON NORMALS: regular rate, regular rhythm and No murmurs present (Cardio) RATE: regular rate RHYTHM: regular rhythm GI: COMMON NORMALS: Soft to palpation and No hepatosplenomegaly present A USCULTATION: Yes normoactive bowel sounds PALPATION: Yes Soft to palpation, No Tenderness to palpation present (GI), No Guarding due to palpation present (GI) and Yes No hepatosplenomegaly present Extremity: COMMON NORMALS: normal to inspection, capillary refill normal, no clubbing, cyanosis or edema, no calf tenderness and no pedal edema Skin: COMMON NORMALS: no rashes or lesions noted GENERAL SKIN EXAM: no rashes or lesions noted Course 2 Vital Signs: Vital signs: Vital Signs Temperature 99.8 F H 03/02/24 12:54 Pulse Rate 127 H 03/02/24 14:42 Respiratory Rate 16 03/02/24 14:42 Blood Pressure 135/80 03/02/24 14:42 Pulse Oximetry 93 03/02/24 14:42 Oxygen Delivery Me thod Nasal Cannula 03/02/24 14:42 MDM - Abdominal Pain Medical Decision Making Patient is on hospice discussed with the family they are not interested in having admitted or treated. He had a possible episode of aspiration pneumonia white count is 20,000 he is tachycardic and has a low-grade fever he is mainly sent over because of concern for bowel obstruction no bowel obstruction on the CT he is somewhat constipated. Will start him on Augmentin return to the intermediate for continued hospice care. Medical Records I reviewed the patient's medical records. Lab Data I reviewed the patient's lab results. 03/02/24 13:03 03/02/24 13:03 Labs/Radiology: Radiology Impressions Abdomen/Pelvis CT 03/02/24 13:11 IMPRESSION: No acute subdiaphragmatic pathology. Laboratory Results WBC 20.47 10^3/uL (3.29-11.43) H 03/02/24 13:03 RBC 4.86 10^6/uL (3.85-5.65) 03/02/24 13:03 Hgb 13.70 g/dL (11.27-16.99) 03/02/24 13:03 Hct 40.7 % (37-53) 03/02/24 13:03 MCV 83.7 fl (82-101) 03/02/24 13:03 MCH 28.2 pg (27-33) 03/02/24 13:03 MCHC 33.7 g/dL (30-55) 03/02/24 13:03 RDW 12.9 % (12.1-15.1) 03/02/24 13:03 Plt Count 604 10^3/cmm (157-399) H 03/02/24 13:03 MPV 9.9 fL (7.4-10.4) 03/02/24 13:03 Neut % (Auto) 71.6 % 03/02/24 13:03 Lymph % (Auto) 13.9 % 03/02/24 13:03 [place] % (Auto) 11.8 % 03/02/24 13:03 Eos % (Auto) 0.2 % 03/02/24 13:03 Baso % (Auto) 0.7 % 03/02/24 13:03 Neut # (Auto) 14.65 10^3/uL (1.8-7.7) H 03/02/24 13:03 Lymph # (Auto) 2.9 10^3/uL (0.8-4.8) 03/02/24 13:03 [place] # (Auto) 2.4 10^3/uL (0.2-0.9) H 03/02/24 13:03 Eos # (Auto) 0.0 10^3/uL (0.0-0.8) 03/02/24 13:03 Baso # (Auto) 0.2 10^3/uL (0.0-0.1) H 03/02/24 13:03 Nucleated RBC % (auto) 0 % 03/02/24 13:03 Nucleated RBCs # 0.0 /100WBC 03/02/24 13:03 Sodium 135 mmol/L (136-145) L 03/02/24 13:03 Potassium 4.4 mmol/L (3.5-5.1) 03/02/24 13:03 Chloride 96 mmol/L (98-107) L 03/02/24 13:03 Carbon Dioxide 24 mmol/L (22-29) 03/02/24 13:03 Anion Gap 19.4 (5-19) H 03/02/24 13:03 BUN 59 mg/dL (8-23) H 03/02/24 13:03 Creatinine 1.8 mg/dL (0.7-1.2) H 03/02/24 13:03 GFR Calculation 38.3 mL/min (90-130) L 03/02/24 13:03 Glucose 148 mg/dL (65-115) H 03/02/24 13:03 Calculated Osmolality 299 mOsm/kg (285-295) H 03/02/24 13:03 Lactic Acid 2.2 mmol/L (0.5-2.2) 03/02/24 13:03 Calcium 11.7 mg/dL (8.5-10.5) H 03/02/24 13:03 Total Bilirubin 0.6 mg/dL (0.15-1.2) 03/02/24 13:03 AST 21 U/L (0-40) 03/02/24 13:03 ALT 24 U/L (0-41) 03/02/24 13:03 Alkaline Phosphatase 92 U/L (40-130) 03/02/24 13:03 Total Protein 8.0 g/dL (6.6-8.7) 03/02/24 13:03 Albumin 4.0 g/dL (3.5-5.2) 03/02/24 13:03 Globulin 4.0 g/dL (1.3-4.6) 03/02/24 13:03 Lipase 170 U/L (13-60) H 03/02/24 13:03 Urine Color Yellow (Yellow) 03/02/24 13:32 Urine Appearance Clear (CLEAR) 03/02/24 13:32 Urine pH 5 (5-7) 03/02/24 13:32 Ur Specific [place] 1.025 (1.005-1.030) 03/02/24 13:32 Urine Protein 1+ (Negative) H 03/02/24 13:32 Urine Glucose (UA) 1+ (Normal) H 03/02/24 13:32 Urine Ketones 1+ (Negative) H 03/02/24 13:32 Urine Blood 3+ (Negative) H 03/02/24 13:32 Urine Nitrate Negative (Negative) 03/02/24 13:32 Urine Bilirubin Neg (Negative) 03/02/24 13:32 Urine Urobilinogen Neg mg/dL (Negative) 03/02/24 13:32 Ur Leukocyte Esterase Negative (Negative) 03/02/24 13:32 Urine RBC >100 /hpf (0-2) H 03/02/24 13:32 Urine WBC 5-10 /hpf (0-5) H 03/02/24 13:32 Ur Squamous Epith Cells 0-4 /hpf (0-5) H 03/02/24 13:32 Amorphous Sediment Not Reportable 03/02/24 13:32 Urine Bacteria 1+ /hpf (NONE) H 03/02/24 13:32 Hyaline Casts 0-4 /lpf H 03/02/24 13:32 Urine Mucus Trace /hpf 03/02/24 13:32 All radiology interpretation(s) finalized by discharge Discharge Plan Discharge Patient Disposition: Home Clinical Impression: Aspiration pneumonia, Constipation Condition: Stable Prescriptions: New amoxicillin-pot clavulanate 875-125 mg tablet 1 tab PO BID Qty: 14 0RF No Action baclofen 20 mg tablet 20 mg PO TID cyclobenzaprine 10 mg tablet 10 mg PO BID Eliquis 5 mg Tablet 5 mg PO BID@0900,2100 Qty: 60 0RF acetaminophen [Tylenol] 325 mg Tablet 650 mg PO QID PRN (Reason: Pain OR INCREASED TEMP) omeprazole 10 mg Capsule,Delayed Release(Dr/Ec) 10 mg PO DAILY metoprolol tartrate 50 mg Tablet 50 mg PO BID dextromethorphan-guaifenesin 10-100 mg/5 mL Syrup 10 ml PO Q4H PRN (Reason: Cough) Qty: 300 0RF chlorthalidone 25 mg Tablet 25 mg PO DAILY magnesium hydroxide [Milk of Magnesia] 400 mg/5 mL Suspension 30 ml PO DAILY PRN (Reason: Constipation) bisacodyl 10 mg Suppository 10 mg UT DAILY PRN (Reason: Constipation) Fleet Enema 19-7 gram/118 mL Enema 118 ml [place] DAILY PRN (Reason: Constipation) bisacodyl [Dulcolax (bisacodyl)] 5 mg Tablet,Delayed Release (Dr/Ec) 10 mg PO DAILY PRN (Reason: Constipation) albuterol sulfate 0.63 mg/3 mL solution for nebulization 0.63 mg inhalation Q8H PRN (Reason: shortness of breath or wheezing) Qty: 90 0RF senna 8.6 mg Tablet 8.6 mg PO BID hydrocodone-acetaminophen 5-325 mg tablet 1 tab PO Q8H PRN (Reason: Pain, Severe) prednisone 20 mg tablet 40 mg PO DAILY Rocephin 1 gram Recon Soln 1 g IV DAILY Rx Instructions: X3DAYS tramadol 50 mg tablet 50 mg PO Q6H PRN (Reason: LEG PAIN) spironolactone 25 mg tablet 25 mg PO DAILY ondansetron 8 mg Tablet,Disintegrating 8 mg PO Q6H PRN (Reason: Nausea And Vomiting) Miralax 17 gram/dose Powder See Rx Instructions .ROUTE .COMPLEX Rx Instructions: TAK1 CAPFUL (17 GM) MIX IN 4 TO 8 OUNCES LIQUID AND DRINK ENTIRE LIQUID EVERY MORNING. losartan 100 mg tablet 100 mg PO BEDTIME Discharge Orders: Discharge ED (Routine); Ordered 03/02/24 Ordered By: Gerry Palmer Referrals: Neville Rodriguez DO [Primary Care Provider] - Discharge Diet: Clear Liquid Discharge Activity: Increase activity as tolerated Patient Instructions: Opioid Safety, Pain Management Activity Restrictions/Additional Instructions: You were seen in the emergency room with complaints of constipation. She noted to have a low-grade fever and elevated white count. Suspect you may have an aspiration pneumonia. Will start you on an oral antibiotic. At this point Coding Level of Care Code ED Blow Molding Machine Tender for Ron Ruelas
--- NOTE | 2024-03-02 13:11 | CTR_ITS ---
PROCEDURE INFORMATION: Exam: CT Abdomen And Pelvis Without Contrast Exam date and time: 03/02/2024 1:39 PM Age: 64 years old Clinical indication: Abdominal pain; Colic TECHNIQUE: Imaging protocol: Computed tomography of the abdomen and pelvis without contrast. Radiation optimization: All CT scans at this facility use at least one of these dose optimization techniques: automated exposure control; mA and/or kV adjustment per patient size (includes targeted exams where dose is matched to clinical indication); or iterative reconstruction. COMPARISON: CT chest abdpel w/*[id number] 08/10/2022 2:37 PM RADIATION DOSE METRICS: Total DLP (mGy-cm): 982.86 FINDINGS: Liver: Mild hepatic steatosis. Gallbladder and biliary ducts: Cholecystectomy. Pancreas: Normal. No ductal dilation. Spleen: Normal. No splenomegaly. Adrenal glands: Normal. No mass. Kidneys and ureters: Normal. No hydronephrosis. Stomach and bowel: Unremarkable. No obstruction. No mucosal thickening. Appendix: No evidence of appendicitis. Intraperitoneal space: Unremarkable. No free air. No significant fluid collection. Vasculature: Unremarkable. No abdominal aortic aneurysm. Lymph nodes: Unremarkable. No enlarged lymph nodes. Urinary bladder: The urinary bladder is collapsed around a Rose catheter. Reproductive: Unremarkable as visualized. Bones/joints: Unremarkable. No acute fracture. Soft tissues: Unremarkable. CT/CT abdomen pelvis con [id number] IMPRESSION: No acute subdiaphragmatic pathology.
[2024-03-02 13:21] LABS: Basophils # 0.2 10^3/uL (0.0-0.1); Basophils % 0.7 %; Eosinophils % 0.2 %; Hematocrit 40.7 % (37-53); Lymphocytes # 2.9 10^3/uL (0.8-4.8); Lymphocytes % 13.9 %; Mean Corpuscular HGB Conc 33.7 g/dL (30-55); Mean Corpuscular Hemoglobin 28.2 pg (27-33); Mean Corpuscular Volume 83.7 fl (82-101); Mean Platelet Volume 9.9 fL (7.4-10.4); Monocytes # 2.4 10^3/uL (0.2-0.9); Monocytes % 11.8 %; Neutrophils # 14.65 10^3/uL (1.8-7.7); Neutrophils % 71.6 %; Nucleated Red Blood Cells % 0 %; Platelet Count 604 10^3/cmm (157-399); Red Blood Count 4.86 10^6/uL (3.85-5.65); Red Cell Distribution Width 12.9 % (12.1-15.1); White Blood Count 20.47 10^3/uL (3.29-11.43)
--- NOTE | 2024-03-02 13:28 | ECG_ITS ---
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 Measurements Intervals [place] Rate: 131 P: 41 OK: 163 QRS: 77 QRSD: 82 T: 10 QT: 376 QTc: 556 Interpretive Statements SINUS TACHYCARDIA MODERATE ST DEPRESSION [0.05+ mV ST DEPRESSION] Compared to ECG 12/30/2022 05:12:25 ST (T wave) deviation now present Sinus rhythm no longer present Electronically Signed On 03-02-2024 20:19:23 CDT by Perez Falcon M.D. [email or web address]
[2024-03-02 13:32] LABS: Lactic Sepsis W/Reflex 2.2 mmol/L (0.5-2.2)
[2024-03-02 13:33] LABS: Alanine Aminotransferase 24 U/L (0-41); Alkaline Phosphatase 92 U/L (40-130); Anion Gap 19.4 (5-19); Aspartate Amino Transferase 21 U/L (0-40); Blood Urea Nitrogen 59 mg/dL (8-23); Calcium 11.7 mg/dL (8.5-10.5); Carbon Dioxide 24 mmol/L (22-29); Chloride 96 mmol/L (98-107); Glomerular Filtration Rate 38.3 mL/min (90-130); Glucose 148 mg/dL (65-115); Lipase 170 U/L (13-60); Osmolality Calculated 299 mOsm/kg (285-295); Potassium 4.4 mmol/L (3.5-5.1); Sodium 135 mmol/L (136-145); Total Bilirubin 0.6 mg/dL (0.15-1.2)
[2024-03-02 13:44] LABS: Bilirubin Urine Neg (Negative); Blood Urine 3+ (Negative); Glucose Urine UA 1+ (Normal); Ketones Urine 1+ (Negative); Leukocyte Esterase Urine Negative (Negative); Nitrate Urine Negative (Negative); Protein Urine 1+ (Negative); Specific Gravity, Urine 1.025 (1.005-1.030); Urine Appearance Clear (CLEAR); Urine Color Yellow (Yellow); Urobilinogen Urine Neg (Negative); pH Urine 5 (5-7)
[2024-03-02 13:45] LABS: Add Urine Microscopic? YES; RBC Urine >100 /hpf (0-2)
[2024-03-02 13:46] LABS: Bacteria Urine 1+ /hpf; Squamous Epithelial Cell Urine 0-4 /hpf (0-5)
[2024-03-02 13:47] LABS: Add Urine Culture? Yes; Hyaline Casts Urine 0-4 /lpf; Mucus Urine TRACE /hpf
[2024-03-02] MEDS: sodium chloride 0.9% 1,000 ML 999 ML IV (14:05)
--- NOTE | 2024-03-02 14:45 | XRR_ITS ---
PROCEDURE INFORMATION: Exam: XR Chest Exam date and time: 03/02/2024 2:51 PM Age: 64 years old Clinical indication: Dyspnea; Additional info: Dyspnea/cough TECHNIQUE: Imaging protocol: Radiologic exam of the chest. Views: 1 view. COMPARISON: CT chest con [id number] 12/30/2022 3:17 AM FINDINGS: Lungs: Unremarkable. No consolidation. Pleural spaces: Unremarkable. No pleural effusion. No pneumothorax. Heart/Mediastinum: Unremarkable. No cardiomegaly. Bones/joints: Unremarkable. XR/XR chest 1V portable [id number] IMPRESSION: No acute findings.
[2024-03-02 15:06] LABS: Reflex Lactate Order REFLEX LACTIC ORDERD
[2024-03-02 16:49] LABS: Adenovirus Not Detected (NOT DETECT); Chlamydia Pneumoniae Not Detected (NOT DETECT); Coronavirus 229E,HKU1,NL63,OC4 Not Detected (NOT DETECT); Human Metapneumovirus Not Detected (NOT DETECT); Human Rhinovirus/Enterovirus Not Detected (NOT DETECT); Influenza A Not Detected (NOT DETECT); Influenza A H1 Not Detected (NOT DETECT); Influenza A H1-2009 Not Detected (NOT DETECT); Influenza A H3 Not Detected (NOT DETECT); Influenza B Not Detected (NOT DETECT); Mycoplasma Pneumoniae Not Detected (NOT DETECT); Parainfluenza Virus Type 1 Not Detected (NOT DETECT); Parainfluenza Virus Type 2 Not Detected (NOT DETECT); Parainfluenza Virus Type 3 Not Detected (NOT DETECT); Parainfluenza Virus Type 4 Not Detected (NOT DETECT); Respiratory Syncytial Virus A Not Detected (NOT DETECT); Respiratory Syncytial Virus B Not Detected (NOT DETECT); SARS-COV-2 Not Detected (NOT DETECT)
[2024-03-02] MEDS: ondansetron 2 mg/ML SDV 2 mL 4 MG IVP (17:49)
== END 2024-03-02 20:03 | disposition home or self-care (01) ==
PROVIDERS: Emergency Provider Family Medicine; PCP Internal Medicine
DX: K59.00 Constipation, unspecified (principal); J69.0 Pneumonitis due to inhalation of food and vomit; I10 Essential (primary) hypertension; G80.9 Cerebral palsy, unspecified; I48.91 Unspecified atrial fibrillation; R00.0 Tachycardia, unspecified; Z79.899 Other long term (current) drug therapy; Z79.01 Long term (current) use of anticoagulants; Z86.16 Personal history of COVID-19; Z87.891 Personal history of nicotine dependence
CPT/HCPCS: 36415; 71045; 74176; 80053; 81001; 83605; 83690; 85025; 87040; 87086; 87486; 87581; 87633; 93005; 96361; 96374; 99285; J2405; J7030

== ENCOUNTER → 2024-04-11 13:57 | Outpatient (BNVA) | payer MEDICARE, MEDICAID, SELFPAY | PROVIDERS: PCP Internal Medicine; Visit Provider Podiatrist Foot & Ankle Surgery | DX: L60.8 Other nail disorders (principal); G80.4 Ataxic cerebral palsy; M24.571 Contracture, right ankle; I87.331 Chronic venous hypertension (idiopathic) with ulcer and inflammation of right lower extremity | CPT/HCPCS: 29580; 99203 ==

== ENCOUNTER → 2024-04-18 14:00 | Outpatient (BNVA) | payer MEDICARE, MEDICAID, SELFPAY | PROVIDERS: PCP Internal Medicine; Visit Provider Podiatrist Foot & Ankle Surgery | DX: G80.4 Ataxic cerebral palsy (principal); M24.571 Contracture, right ankle; I87.331 Chronic venous hypertension (idiopathic) with ulcer and inflammation of right lower extremity; L60.8 Other nail disorders | CPT/HCPCS: 99213 ==

== ENCOUNTER → 2024-04-25 15:26 | Outpatient (BNVA) | payer MEDICARE, MEDICAID, SELFPAY | PROVIDERS: PCP Internal Medicine; Visit Provider Podiatrist Foot & Ankle Surgery | DX: G80.4 Ataxic cerebral palsy (principal); M24.571 Contracture, right ankle; I87.331 Chronic venous hypertension (idiopathic) with ulcer and inflammation of right lower extremity; L60.8 Other nail disorders | CPT/HCPCS: 99213 ==

== ENCOUNTER → 2024-05-02 15:31 | Outpatient (BNVA) | payer MEDICARE, MEDICAID, SELFPAY | PROVIDERS: PCP Internal Medicine; Visit Provider Podiatrist Foot & Ankle Surgery | DX: G80.4 Ataxic cerebral palsy (principal); M24.571 Contracture, right ankle; I87.331 Chronic venous hypertension (idiopathic) with ulcer and inflammation of right lower extremity | CPT/HCPCS: 99213 ==

== ENCOUNTER → 2024-06-27 13:54 | Outpatient (BNVA) | payer MEDICARE, MEDICAID, SELFPAY | PROVIDERS: PCP Internal Medicine; Visit Provider Podiatrist Foot & Ankle Surgery | DX: G80.4 Ataxic cerebral palsy (principal); M24.571 Contracture, right ankle; I87.331 Chronic venous hypertension (idiopathic) with ulcer and inflammation of right lower extremity | CPT/HCPCS: 99213 ==

== ENCOUNTER → 2024-08-01 13:30 | Outpatient (BNVA) | payer MEDICARE, MEDICAID, SELFPAY | PROVIDERS: PCP Internal Medicine; Visit Provider Podiatrist Foot & Ankle Surgery | DX: G80.4 Ataxic cerebral palsy (principal); M24.571 Contracture, right ankle; I87.331 Chronic venous hypertension (idiopathic) with ulcer and inflammation of right lower extremity; L97.511 Non-pressure chronic ulcer of other part of right foot limited to breakdown of skin | CPT/HCPCS: 99213 ==

== ENCOUNTER → 2024-08-08 07:04 | Outpatient (BNVA) | payer MEDICARE, MEDICAID, SELFPAY | PROVIDERS: PCP Internal Medicine; Visit Provider Podiatrist Foot & Ankle Surgery | DX: L03.90 Cellulitis, unspecified (principal); G80.4 Ataxic cerebral palsy; M24.571 Contracture, right ankle; I87.331 Chronic venous hypertension (idiopathic) with ulcer and inflammation of right lower extremity; L97.511 Non-pressure chronic ulcer of other part of right foot limited to breakdown of skin | CPT/HCPCS: 99213 ==

== ENCOUNTER → 2024-08-15 08:53 | Outpatient (BNVA) | payer MEDICARE, MEDICAID, SELFPAY | PROVIDERS: PCP Internal Medicine; Visit Provider Podiatrist Foot & Ankle Surgery | DX: G80.4 Ataxic cerebral palsy (principal); M24.571 Contracture, right ankle; I87.331 Chronic venous hypertension (idiopathic) with ulcer and inflammation of right lower extremity; L97.511 Non-pressure chronic ulcer of other part of right foot limited to breakdown of skin | CPT/HCPCS: 99213 ==

== ENCOUNTER → 2024-08-21 08:55 | Outpatient (BNVA) | payer MEDICARE, MEDICAID, SELFPAY | PROVIDERS: PCP Internal Medicine; Visit Provider Podiatrist Foot & Ankle Surgery | DX: G80.4 Ataxic cerebral palsy (principal); M24.571 Contracture, right ankle; I87.331 Chronic venous hypertension (idiopathic) with ulcer and inflammation of right lower extremity; L97.511 Non-pressure chronic ulcer of other part of right foot limited to breakdown of skin | CPT/HCPCS: 99213 ==

== ENCOUNTER → 2024-09-14 11:30 | Outpatient (BNVA) | payer MEDICARE, MEDICAID, SELFPAY | PROVIDERS: PCP Internal Medicine; Visit Provider Podiatrist Foot & Ankle Surgery | DX: R09.02 Hypoxemia (principal); G80.4 Ataxic cerebral palsy; M24.571 Contracture, right ankle; I87.331 Chronic venous hypertension (idiopathic) with ulcer and inflammation of right lower extremity; L97.511 Non-pressure chronic ulcer of other part of right foot limited to breakdown of skin | CPT/HCPCS: 99213 ==

== ENCOUNTER → 2024-10-16 07:11 | Outpatient (BNVA) | payer MEDICARE, MEDICAID, SELFPAY | PROVIDERS: PCP Internal Medicine; Visit Provider Podiatrist Foot & Ankle Surgery | DX: M24.571 Contracture, right ankle (principal); I87.331 Chronic venous hypertension (idiopathic) with ulcer and inflammation of right lower extremity; G80.4 Ataxic cerebral palsy | CPT/HCPCS: 99213 ==

== ENCOUNTER 2024-10-27 09:30 | Outpatient (CLI) | payer MEDICARE, MEDICAID, SELFPAY ==
--- NOTE | 2024-10-27 09:30 | USR_ITS ---
PROCEDURE INFORMATION: Exam: US Duplex Right Lower Extremity Veins, Limited Exam date and time: 10/27/2024 9:51 AM Age: 64 years old Clinical indication: Other: Wounds; Additional info: Wounds, right lower extremity only TECHNIQUE: Imaging protocol: Real-time duplex ultrasound of the right extremity with 2-D martinez scale, color Doppler flow and spectral waveform analysis including responses to compression and other maneuvers (when performed) with image documentation. Limited exam was focused on the right lower extremity veins. COMPARISON: No relevant prior studies available. FINDINGS: Right deep veins: Unremarkable. The common femoral, femoral, proximal profunda femoral and popliteal veins are patent without thrombus. Normal Doppler waveforms. Normal compressibility and/or augmentation response. Superficial veins: Greater saphenous vein at the saphenofemoral junction is patent without thrombus. Soft tissues: Subcutaneous edema noted in the lower extremity. US/[place] [id number] IMPRESSION: No evidence of deep vein thrombosis.
== END 2024-10-27 09:31 | disposition home or self-care (01) ==
LOC: RAD 09:31
PROVIDERS: PCP Internal Medicine; Visit Provider Podiatrist Foot & Ankle Surgery
DX: R09.02 Hypoxemia (principal)
CPT/HCPCS: 93971

== ENCOUNTER → 2024-10-30 08:01 | Outpatient (BNVA) | payer MEDICARE, SELFPAY | PROVIDERS: PCP Internal Medicine; Visit Provider Podiatrist Foot & Ankle Surgery | DX: I87.331 Chronic venous hypertension (idiopathic) with ulcer and inflammation of right lower extremity (principal); G80.4 Ataxic cerebral palsy; M24.571 Contracture, right ankle | CPT/HCPCS: 99213 ==

== ENCOUNTER 2024-11-06 09:51 | Outpatient (CLI) | payer MEDICARE, MEDICAID, SELFPAY ==
--- NOTE | 2024-11-06 10:00 | USR_ITS ---
PROCEDURE INFORMATION: Exam: US Duplex Right Lower Extremity Veins, Limited Exam date and time: 11/06/2024 10:02 AM Age: 64 years old Clinical indication: Other: Nonhealing sores; Additional info: I87.331 - chronic venous hypertension (idiopathic) with u. . . TECHNIQUE: Imaging protocol: Real-time duplex ultrasound of the right extremity with 2-D martinez scale, color Doppler flow and spectral waveform analysis including responses to compression and other maneuvers (when performed) with image documentation. Limited exam was focused on the right lower extremity veins. COMPARISON: [place] [id number] 10/27/2024 9:51 AM FINDINGS: Right deep veins: Unremarkable. The common femoral, femoral, popliteal and posterior tibial veins are patent without thrombus. Normal Doppler waveforms. Normal compressibility and/or augmentation response. Superficial veins: Greater saphenous vein at the saphenofemoral junction is patent without thrombus. Mild venous insufficiency. Soft tissues: Unremarkable. US/[place] [id number] IMPRESSION: No sonographic evidence of deep vein thrombosis.
== END 2024-11-06 09:52 | disposition home or self-care (01) ==
LOC: RAD 09:52
PROVIDERS: PCP Internal Medicine; Visit Provider Podiatrist Foot & Ankle Surgery
DX: I87.331 Chronic venous hypertension (idiopathic) with ulcer and inflammation of right lower extremity (principal); G80.4 Ataxic cerebral palsy; M24.571 Contracture, right ankle; I87.2 Venous insufficiency (chronic) (peripheral)
CPT/HCPCS: 93971

== ENCOUNTER → 2024-11-21 10:08 | Outpatient (BNVA) | payer MEDICARE, MEDICAID, SELFPAY | PROVIDERS: PCP Internal Medicine; Visit Provider Podiatrist Foot & Ankle Surgery | DX: G80.4 Ataxic cerebral palsy (principal); M24.571 Contracture, right ankle; I87.331 Chronic venous hypertension (idiopathic) with ulcer and inflammation of right lower extremity | CPT/HCPCS: 99213 ==

== ENCOUNTER → 2025-06-27 08:44 | Outpatient (BNVA) | payer MEDICARE, MEDICAID, SELFPAY | PROVIDERS: PCP Internal Medicine; Visit Provider Dermatology | DX: L21.8 Other seborrheic dermatitis (principal); L57.0 Actinic keratosis; L82.1 Other seborrheic keratosis | CPT/HCPCS: 99204 ==